=== PATIENT | female | born 2000 | race Caucasian/White ===

== ENCOUNTER 2018-06-22 15:52 | Emergency (ER) | payer MEDICAID, SELFPAY ==
[2018-06-22 15:59] VITALS: BP 109/66; PULSE 72; RESP 16; TEMP 37; O2SAT 98
--- NOTE | 2018-06-22 18:24 | W.ED.GENAD ---
Discharge Plan Disposition Patient Disposition: HOME Condition: Stable Discharge Details Chief Complaint: PsychEval Clinical Impression: Depression, Anxiety, Stress reaction Primary Care Provider: Ruby Roberts ED Provider: Cole Fitzgerald Home Meds and New Rx's Prescriptions: No Action L norgest/e.estradiol-e.estrad [Quartette] 0.15 mg-20 mcg/ 0.15 mg-25 mcg tablets,dose pack,3 month 1 tab PO DAILY Qty: 91 RF: 0 Nexplanon 68 MG implant 68 mg SQ ONCE Qty: 1 RF: 0 L norgest/e.estradiol-e.estrad [Seasonique] 0.15 mg-30 mcg (84)/10 mcg (7) tablets,dose pack,3 month 1 tab PO DAILY Qty: 91 RF: 0 venlafaxine [Effexor XR] 37.5 MG capsule,extended release 24hr 37.5 mg PO DAILY RF: 0 omeprazole 20 MG capsule,delayed release(DR/EC) 20 mg PO DAILY RF: 0 ibuprofen 600 MG tablet 600 mg PO QID PRN (Reason: Pain) Qty: 20 RF: 0 Discharge Instructions Instructions: Depression (ED), Anxiety (ED) Additional Instructions: Please follow through with [facility] human services for further counseling and to speak somebody about your anxiety and depression. Contact your primary care provider next week for arrangement of follow-up appointment to restart your psychiatric medications. Feel free to return to the emergency department for any new or worsening symptoms. Stand Alone Forms: Work Release Referrals: Ruby Roberts [Primary Care Provider] - Discharge Data Discharge Date/Time-TO BE ENTERED AT DEPARTURE: 06/22/18 18:38 Medical Decision Making Patient presenting to the emergency department for chief complaint of depression, anxiety, and anger outburst. She states that she has been under a lot of stress with significant other, custody chicas in court, and work. She states that tonight she felt like she was going to snap and did not feel that she could go to work due to potentially risking her job due to anger outburst. She states that she stopped her medication 3 months ago due to losing insurance and not being able to see her primary care provider for the same reason. Patient denies any homicidal or suicidal ideations, denies any medical complaints, states that she just does not want to get to the point that she has been in the past of feeling suicidal. Patient has very forward thinking with desiring to take care of her daughter and spend time with her daughter along with keeping her employment status and good standing. Patient was put in touch with acute on-call psychiatric provider for resource management and they were able to arrange outpatient counseling. Patient is willing to restart her antidepressants and psychiatric medications so patient placed up on care management list to help arrange follow-up for patient to see primary care provider to restart these medications. Patient is otherwise stable at this time. Brief physical exam is unremarkable and at this time I doubt any endocrine, electrolyte, or medical source for her complaint. After discussion of diagnosis and plan of care patient has no further needs, questions, or concerns and states clear understanding to return to the emergency department for any worsening symptoms. HPI General Mode of arrival: ambulatory. Date/Time Provider Initiated Documentation: 06/22/18 17:38. Limitations to Documentation: no limitations. Information obtained by: patient, RN notes reviewed and old records reviewed. History of Present Illness 18 year old F presents to the emergency department with the chief complaint of Anger and irritability, Quality is described as other (Denies pain or medical complaint), Patient notes no other symptoms.. Patient did receive the following treatments prior to arrival, none Related Data Home Medications Medication Instructions Recorded Confirmed omeprazole 20 mg PO DAILY 09/12/17 06/22/18 venlafaxine [Effexor XR] 37.5 mg PO DAILY 09/12/17 06/22/18 Nexplanon 68 mg SQ ONCE #1 implant 09/18/17 06/22/18 ibuprofen 600 mg PO QID PRN #20 tab 12/04/17 06/22/18 L norgest/E estradiol-E estrad 1 tab PO DAILY #91 dose pk 05/06/18 06/22/18 0.15 mg-20 mcg/0.15 mg-25 mcg tabs,3mos L norgest/E estradiol-E estrad 1 tab PO DAILY #91 dose pk 05/21/18 06/22/18 0.15 mg-30 mcg (84)/10 mcg(7) tabs,3mos Previous Rx's Medication Instructions Recorded ibuprofen 600 mg PO QID PRN #20 tab 12/04/17 L norgest/E estradiol-E estrad 1 tab PO DAILY #91 dose pk 05/06/18 0.15 mg-20 mcg/0.15 mg-25 mcg tabs,3mos L norgest/E estradiol-E estrad 1 tab PO DAILY #91 dose pk 05/21/18 0.15 mg-30 mcg (84)/10 mcg(7) tabs,3mos Allergies Allergy/AdvReac Type Severity Reaction Status Date / Time latex Allergy Intermediate Swelling/Ra Unverified 06/22/18 16:02 sh codeine phosphate AdvReac Intermediate vomitting Unverified 06/22/18 16:02 [From Tylenol-Codeine #3] General Stated Complaint: PsychEval DEEDEE: 3 Review of Systems Constitutional Denies body ache(s), Denies chills, Denies fever(s), Denies headache(s), Denies weight gain and Denies weight loss Eyes Denies change in vision ENT Denies headache(s), Denies sore throat and Denies throat swelling Cardiovascular Denies chest pain and Denies dyspnea Respiratory Denies dyspnea Gastrointestinal Denies abdominal pain, Denies diarrhea, Denies nausea and Denies vomiting Genitourinary Denies dysuria Neurologic Denies headache(s) Psychiatric Reports as per HPI, Reports irritability and Reports mood swings Endocrine Denies cold intolerance and Denies heat intolerance Hematologic/Lymphatic Denies easy bleeding and Denies easy bruising Allergic/Immunologic Denies throat swelling [facility] Medical History Depression Ganglion cyst Hemorrhoids in puerperium Insomnia PTSD (post-traumatic stress disorder) Skin abscess Surgical History GANGLION CYST REMOVAL (05/06/15) Family History Brother Congenital heart anomaly Mother Cerebral palsy Social History Smoking/Tobacco Use Status: Never Exam Const General: cooperative Orientation: alert, awake and oriented x3 Limitations: mental status not altered [facility] Head: normal to inspection, normocephalic and atraumatic Ears: hearing grossly normal bilaterally Mouth: moist mucous membranes Eyes General: appearance normal, both eyes and all related structures Pupils: PERRL EOM: EOM intact bilaterally Neck Thyroid: thyroid normal Resp Effort & Inspection: normal respiratory effort, able to speak in complete sentences and no respiratory distress Auscultation: clear to auscultation bilaterally Cardio Rate: regular rate and not tachycardic Rhythm: regular rhythm Heart Sounds: S1 normal, S2 normal, no click, no gallops, no murmurs and no rubs Neuro General: alert, awake, oriented x3, gait normal, moves all extremities and no focal motor deficits Cognition: normal cognition Speech: speech normal Psych Speech and Movement: speech and movement normal and speech clear Affect: normal affect Attitude: cooperative Thought Process: normal Thought Content: normal, no homicidality, no obsessions and suicidality Course Vital Signs Temperature 37 C 06/22/18 15:59 Pulse 72 06/22/18 15:59 Respiratory Rate 16 06/22/18 15:59 Blood Pressure 109/66 06/22/18 15:59 Pulse Oximetry 98 06/22/18 15:59 Temperature 37 C 06/22/18 15:59 Temperature Source Skin 06/22/18 15:59 Pulse 72 06/22/18 15:59 Respiratory Rate 16 06/22/18 15:59 Respiratory Effort 06/22/18 15:59 Blood Pressure 109/66 06/22/18 15:59 Blood Pressure Position Sitting 06/22/18 15:59 Pulse Oximetry 98 06/22/18 15:59 Oxygen Delivery Method Room Air 06/22/18 15:59 Oxygen Flow Rate 0 06/22/18 15:59 Pain Level 0 06/22/18 15:59
--- NOTE | 2018-06-22 18:31 | ED.GENADUL_ITS ---
Discharge Plan Disposition Patient Disposition: HOME Condition: Stable Discharge Details Chief Complaint: PsychEval Clinical Impression: Depression, Anxiety, Stress reaction Primary Care Provider: Ruby Roberts ED Provider: Cole Fitzgerald Home Meds and New Rx's Prescriptions: No Action L norgest/e.estradiol-e.estrad [Quartette] 0.15 mg-20 mcg/ 0.15 mg-25 mcg tablets,dose pack,3 month 1 tab PO DAILY Qty: 91 RF: 0 Nexplanon 68 MG implant 68 mg SQ ONCE Qty: 1 RF: 0 L norgest/e.estradiol-e.estrad [Seasonique] 0.15 mg-30 mcg (84)/10 mcg (7) tablets,dose pack,3 month 1 tab PO DAILY Qty: 91 RF: 0 venlafaxine [Effexor XR] 37.5 MG capsule,extended release 24hr 37.5 mg PO DAILY RF: 0 omeprazole 20 MG capsule,delayed release(DR/EC) 20 mg PO DAILY RF: 0 ibuprofen 600 MG tablet 600 mg PO QID PRN (Reason: Pain) Qty: 20 RF: 0 Discharge Instructions Instructions: Depression (ED), Anxiety (ED) Additional Instructions: Please follow through with [facility] human services for further counseling and to speak somebody about your anxiety and depression. Contact your primary care provider next week for arrangement of follow-up appointment to restart your psychiatric medications. Feel free to return to the emergency department for any new or worsening symptoms. Stand Alone Forms: Work Release Referrals: Ruby Roberts [Primary Care Provider] - Discharge Data Discharge Date/Time-TO BE ENTERED AT DEPARTURE: 06/22/18 18:38 Medical Decision Making Patient presenting to the emergency department for chief complaint of depression, anxiety, and anger outburst. She states that she has been under a lot of stress with significant other, custody chicas in court, and work. She states that tonight she felt like she was going to snap and did not feel that she could go to work due to potentially risking her job due to anger outburst. She states that she stopped her medication 3 months ago due to losing insurance and not being able to see her primary care provider for the same reason. Patient denies any homicidal or suicidal ideations, denies any medical comp laints, states that she just does not want to get to the point that she has been in the past of feeling suicidal. Patient has very forward thinking with desiring to take care of her daughter and spend time with her daughter along with keeping her employment status and good standing. Patient was put in touch with acute on-call psychiatric provider for resource management and they were able to arrange outpatient counseling. Patient is willing to restart her antidepressants and psychiatric medications so patient placed up on care management list to help arrange follow-up for patient to see primary care provider to restart these medications. Patient is otherwise stable at this time. Brief physical exam is unremarkable and at this time I doubt any endocrine, electrolyte, or medical source for her complaint. After discussion of diagnosis and plan of care patient has no further needs, questions, or concerns and states clear understanding to return to the emergency department for any worsening symptoms. HPI General Mode of arrival: ambulatory . Date/Time Provider Initiated Documentation: 06/22/18 17:38 . Limitations to Documentation: no limitations . Information obtained by: patient, RN notes reviewed and old records reviewed . History of Present Illness 18 year old F presents to the emergency department with the chief complaint of Anger and irritability, Quality is described as other (Denies pain or medical complaint), Patient notes no other symptoms.. Patient did receive the following treatments prior to arrival, none Related Data Home Medications Medication Instructions Recorded Confirmed omeprazole 20 mg PO DAILY 09/12/17 06/22/18 venlafaxine [Effexor XR] 37.5 mg PO DAILY 09/12/17 06/22/18 Nexplanon 68 mg SQ ONCE #1 implant 09/18/17 06/22/18 ibuprofen 600 mg PO QID PRN #20 tab 12/04/17 06/22/18 L norgest/E estradiol-E estrad 1 tab PO DAILY #91 dose pk 05/06/18 06/22/18 0.15 mg-20 mcg/0.15 mg-25 mcg tabs,3mos L norgest/E estradiol-E estrad 1 tab PO DAILY #91 dose pk 05/21/18 06/22/18 0.15 mg-30 mcg (84)/10 mcg(7) tabs,3mos Previous Rx's Medication Instructions Recorded ibuprofen 600 mg PO QID PRN #20 tab 12/04/17 L norgest/E estradiol-E estrad 1 tab PO DAILY #91 dose pk 05/06/18 0.15 mg-20 mcg/0.15 mg-25 mcg tabs,3mos L norgest/E estradiol-E estrad 1 tab PO DAILY #91 dose pk 05/21/18 0.15 mg-30 mcg (84)/10 mcg(7) tabs,3mos Allergies Allergy/AdvReac Type Severity Reaction Status Date / Time latex Allergy Intermediate Swelling/Ra Unverified 06/22/18 16:02 sh codeine phosphate AdvReac Intermediate vomitting Unverified 06/22/18 16:02 [From Tylenol-Codeine #3] General Stated Complaint: PsychEval DEEDEE: 3 Review of Systems Constitutional Denies body ache(s), Denies chills, Denies fever(s), Denies headache(s), Denies weight gain and Denies weight loss Eyes Denies change in vision ENT Denies headache(s), Denies sore throat and Denies throat swelling Cardiovascular Denies chest pain and Denies dyspnea Respiratory Denies dyspnea Gastrointestinal Denies abdominal pain, Denies diarrhea, Denies nausea and Denies vomiting Genitourinary Denies dysuria Neurologic Denies headache(s) Psychiatric Reports as per HPI, Reports irritability and Reports mood swings Endocrine Denies cold intolerance and Denies heat intolerance Hematologic/Lymphatic Denies easy bleeding and Denies easy bruising Allergic/Immunologic Denies throat swelling [facility] Medical History Depression Ganglion cyst Hemorrhoids in puerperium Insomnia PTSD (post-traumatic stress disorder) Skin abscess Surgical History GANGLION CYST REMOVAL (05/06/15) Family History Brother Congenital heart anomaly Mother Cerebral palsy Social History Smoking/Tobacco Use Status: Never Exam Const General: cooperative Orientation: alert, awake and oriented x3 Limitations: mental status not altered [facility] Head: normal to inspection, normocephalic and atraumatic Ears: hearing grossly normal bilaterally Mouth: moist mucous membranes Eyes General: appearance normal, both eyes and all related structures Pupils: PERRL EOM: EOM intact bilaterally Neck Thyroid: thyroid normal Resp Effort & Inspection: normal respiratory effort, able to speak in complete sentences and no respiratory distress Auscultation: clear to auscultation bilaterally Cardio Rate: regular rate and not tachycardic Rhythm: regular rhythm Heart Sounds: S1 normal, S2 normal, no click, no gallops, no murmurs and no rubs Neuro General: alert, awake, oriented x3, gait normal, moves all extremities and no focal motor deficits Cognition: normal cognition Speech: speech normal Psych Speech and Movement: speech and movement normal and speech clear Affect: normal affect Attitude: cooperative Thought Process: normal Thought Content: normal, no homicidality, no obsessions and suicidality Course Vital Signs Temperature 37 C 06/22/18 15:59 Pulse 72 06/22/18 15:59 Respiratory Rate 16 06/22/18 15:59 Blood Pressure 109/66 06/22/18 15:59 Pulse Oximetry 98 06/22/18 15:59 Temperature 37 C 06/22/18 15:59 Temperature Source Skin 06/22/18 15:59 Pulse 72 06/22/18 15:59 Respiratory Rate 16 06/22/18 15:59 Respiratory Effort 06/22/18 15:59 Blood Pressure 109/66 06/22/18 15:59 Blood Pressure Position Sitting 06/22/18 15:59 Pulse Oximetry 98 06/22/18 15:59 Oxygen Delivery Method Room Air 06/22/18 15:59 Oxygen Flow Rate 0 06/22/18 15:59 Pain Level 0 06/22/18 15:59
--- NOTE | 2018-06-25 09:26 | PDOC.ERCMPRO ---
Care Management Progress Note 06/25-Johnathan SILVESTRE had requested a f/u appt with PCP (Ruby Bond, [facility]) within a week for depression and patients desire to restart medications. [facility] faxed back that patient is scheduled for 06/25 at [phone].
--- NOTE | 2018-06-25 09:27 | CMPROGNOTE_ITS ---
Care Management Progress Note 06/25-Johnathan SILVESTRE had requested a f/u appt with PCP (Ruby Bond, [facility]) within a week for depression and patients desire to restart medications. [facility] faxed back that patient is scheduled for 06/25 at [phone].
== END 2018-06-22 18:38 | disposition home or self-care (01) ==
PROVIDERS: Emergency Provider Nurse Practitioner Family; PCP Nurse Practitioner
DX: F41.8 Other specified anxiety disorders (principal); F43.9 Reaction to severe stress, unspecified
CPT/HCPCS: 99283

== ENCOUNTER 2018-07-27 10:15 | Emergency (ER) | payer MEDICAID, SELFPAY ==
[2018-07-27 10:41] VITALS: BP 103/65; PULSE 74; RESP 14; TEMP 36.7; O2SAT 98
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
== END 2018-07-27 10:59 | disposition home or self-care (01) ==
LOC: ER 11:01
PROVIDERS: Emergency Provider Emergency Medicine; PCP Nurse Practitioner
DX: R51 Headache (principal)
CPT/HCPCS: 99282

== ENCOUNTER 2018-07-29 11:28 | Emergency (ER) | payer MEDICAID, SELFPAY ==
[2018-07-29 11:44] VITALS: BP 113/70; PULSE 63; RESP 20; TEMP 36.8; O2SAT 98
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
[2018-07-29] MEDS: Ibuprofen 600 MG TAB PO (13:23)
[2018-07-29] MEDS: Acetaminophen 325 MG TAB 650 MG PO (13:23)
[2018-07-29 13:35] VITALS: BP 113/70; PULSE 63; RESP 20; TEMP 36.8; O2SAT 98
== END 2018-07-29 13:30 | disposition home or self-care (01) ==
PROVIDERS: Emergency Provider Student in an Organized Health Care Education/Training Program; PCP Nurse Practitioner
DX: M54.5 Low back pain (principal); S39.012A Strain of muscle, fascia and tendon of lower back, initial encounter; V43.52XA Car driver injured in collision with other type car in traffic accident, initial encounter
CPT/HCPCS: 99282

== ENCOUNTER 2018-09-16 16:49 | Outpatient (REF) | payer MEDICAID, SELFPAY | END 2018-09-16 17:09 | LOC: NCHCN 16:49 | PROVIDERS: PCP Nurse Practitioner; Visit Provider Nurse Practitioner Family | DX: N89.8 Other specified noninflammatory disorders of vagina (principal) | CPT/HCPCS: 87480; 87510; 87660 ==

== ENCOUNTER 2018-11-25 13:35 | Emergency (ER) | payer MEDICAID, SELFPAY ==
[2018-11-25 13:38] VITALS: BP 159/104; PULSE 116; RESP 18; TEMP 37.3; O2SAT 98
[2018-11-25 13:56] LABS: Bilirubin Negative (Negative); Blood Negative (Negative); Clarity Clear; Glucose Negative (Negative); Ketones Negative (Negative); Leukocyte Esterase Negative (Negative); Nitrite Negative (Negative); Specific Gravity 1.025 (1.005-1.025); Urobilinogen 0.2 EU/dL (Up TO 0.2); pH 5.5 (5-8)
[2018-11-25 14:07] LABS: *AMPHETAMINES SCREEN URINE Negative (Negative); *BARBITURATES SCREEN URINE Negative (Negative); *BENZODIAZEPINES SCREEN URINE Negative (Negative); Cannabinoids THC POSITIVE (Negative); Cocaine Screen,Urine Negative (Negative); METHADONE URINE SCREEN Negative (Negative); OPIATES URINE SCREEN Negative (Negative)
[2018-11-25 14:08] LABS: Tricyclic Antidepressants Negative (Negative)
[2018-11-25 14:21] LABS: Abs Immature Grans 0.01 k/cumm (0.0-0.09); Absolute Basophil Count 0.03 k/cumm (0.0-0.2); Absolute Eosinophil Count 0.09 k/cumm (0.0-0.7); Absolute Lymphocyte Count 2.53 k/cumm (1.2-3.4); Absolute Monocyte Count 0.81 k/cumm (0.11-0.7); Absolute Neutrophil Count 5.01 k/cumm (1.2-6.7); Basophils % 0.4; Eosinophils % 1.1; HCT 39.4 % (36.0-46.0); HGB 13.5 g/dL (12.0-15.5); Immature Grans % 0.1; Lymphocytes % 29.8; Mean Corp. HGB Concentration 34.3 g/dL (32.0-36.0); Mean Corpuscular Hemoglobin 28.5 pg (27.0-33.0); Mean Corpuscular Volume 83.1 fL (80-95); Monocytes % 9.6; Platelet Count 357 x1000/uL (130-400); RBC 4.74 m/cumm (4.00-5.20); White Blood Cell Count 8.48 k/cumm (4.4-10.8)
[2018-11-25 14:48] LABS: ALT 24 U/L (12-78); AST 19 U/L (15-37); Alkaline Phosphatase 73 U/L (46-116); Anion Gap 10.3 mmol/L (3-11); BUN 13 mg/dL (7-18); Bilirubin, Total 0.2 mg/dL (0.2-1.0); CO2 23.7 mmol/L (21.0-32.0); CREATININE 1.13 mg/dL (0.55-1.02); Calcium 9.1 mg/dL (8.5-10.1); Chloride 105 mmol/L (98-107); Glucose 119 mg/dL (70-100); Potassium 3.5 mmol/L (3.5-5.1); Sodium 139 mmol/L (136-145); TSH (W/Ref FT4) 2.62 uIU/mL (0.358-3.74); Total Protein 7.6 g/dL (6.4-8.2)
[2018-11-25 14:58] LABS: ETHANOL BLOOD < 3.0 mg/dL (<3)
--- NOTE | 2018-11-25 15:14 | ED.GENADUL_ITS ---
Discharge Plan Disposition Patient Disposition: HOME Condition: Good Discharge Details Chief Complaint: PsychEval Clinical Impression: Depression Primary Care Provider: Dalila Rodriguez ED Provider: Scar Armendariz Home Meds and New Rx's Prescriptions: No Action albuterol (refill) 90 mcg/actuation aerosol IH RF: 0 medroxyprogesterone 150 mg/mL syringe 150 mg IM [id number] RF: 0 omeprazole 20 MG capsule,delayed release(DR/EC) 20 mg PO DAILY RF: 0 ibuprofen 600 MG tablet 600 mg PO QID PRN (Reason: Pain) Qty: 20 RF: 0 buspirone 10 mg Tablet PO DAILY RF: 0 citalopram 10 mg Tablet PO DAILY RF: 0 guanfacine 1 mg Tablet PO DAILY RF: 0 Discharge Instructions Instructions: Depression (ED) Additional Instructions: If you have any worsening of your symptoms, please contact 911 return immediately. Please utilize your resources at home for your close mental health follow-up. If you notice any worsening of your symptoms, or any new symptoms such as vomiting, diarrhea, fever, chills, shortness of breath, chest pain, numbness, weakness, or fainting , please return immediately to the emergency department for reevaluation. Please follow up with your primary care provider as soon as possible for reassessment and reevaluation. As always, it was a pleasure participating in your medical care today. Medical Decision Making This is a pleasant 18-year-old female with a past medical history of depression who presents for evaluation of depression and suicidality. She states that she has had multiple social issues as of late which has significantly increased her chronic depression symptoms and thoughts of self-harm. Physical exam demonstrates no significant abnormalities. We will consult mental health, get an observer for the patient, switch her into close both of her mental health. 4:57 PM Patient's laboratory work-up is returned benign. She is cleared medically. At this time mental health has come and evaluated the patient and after a very long and thorough discussion with the patient through shared decision-making processes, the patient states that she feels ready and stable to go home, and will be given multiple resources in the outpatient basis for close follow-up. The patient feels well and is requesting discharge. Mental health agrees to this plan. Patient will be discharged home with her multiple resources for mental health on an outpatient basis. I have extensively reviewed the treatment plan and discharge instructions with the patient and their family. I have addressed all patient concerns at this time. The patient and family was made aware of what symptoms to monitor for that would warrant a return to the emergency department. Discussed the plan with the patient and family, they demonstrate verbal understanding and agreement with our assessment and plan at this time. HPI General Date/Time Provider Initiated Documentation: 11/25/18 13:59 . HPI Narrative: This is a 18-year-old female with a past medical history of depression, bipolar, PTSD, who presents today for evaluation of suicidal ideations and depression. The patient states that she has had multiple social problems as of late with her family, and these have notably been making her chronic symptoms of depression worse. She does not take any of her home depression medications that she feels that these do not help. She states that in the past she was hospitalized for cutting of her wrists, however she states that currently she does not have a plan but imagine she would go through with cutting if she needed to harm herself or end her life. She denies any IV illicit drug use, pertinent family history of suicidality, auditory or visual hallucinations, or homicidal ideations. Related Data Home Medications Medication Instructions Recorded Confirmed omeprazole 20 mg PO DAILY 09/12/17 09/29/18 ibuprofen 600 mg PO QID PRN #20 tab 12/04/17 09/29/18 buspirone mg PO DAILY 07/27/18 09/29/18 citalopram mg PO DAILY 07/27/18 09/29/18 guanfacine mg PO DAILY 07/27/18 09/29/18 albuterol (refill) 90 mcg IH 09/29/18 09/29/18 mcg/actuation aerosol inhaler medroxyprogesterone 150 mg/mL 150 mg IM [id number] 09/29/18 09/29/18 intramuscular syringe Previous Rx's Medication Instructions Recorded ibuprofen 600 mg PO QID PRN #20 tab 12/04/17 Allergies Allergy/AdvReac Type Severity Reaction Status Date / Time latex Allergy Intermediate Swelling/Ra Verified 09/29/18 12:56 sh codeine phosphate AdvReac Intermediate vomitting Verified 09/29/18 12:56 [From Tylenol-Codeine #3] General Stated Complaint: PsychEval DEEDEE: 2 Review of Systems Review of Systems All systems reviewed & are unremarkable except as noted in HPI and below PFSH Medical History PTSD (post-traumatic stress disorder) (Acute) Anxiety (Acute 09/02/17) Family history of congenital heart disorder in brother (Acute 04/30/16) Depression (Resolved) Ganglion cyst (Resolved) Hemorrhoids in puerperium (Resolved) Insomnia (Resolved) Skin abscess (Resolved) Surgical History GANGLION CYST REMOVAL (05/06/15) Social History Smoking/Tobacco Use Status: Never Drug use: Occasionally Do you feel safe in your relationship?: Yes History History 2 Para 1 Hx # Term Pregnancies Multiple births Hx # Pregnancies Ectopic pregnancies AB induced Hx Number of Living Children AB spontaneous Exam Narrative Exam Narrative: 1.Const: Well-nourished, Well-developed, appearing stated age 2.Eyes: PERRL, no conjunctival injection, and symmetrical lids. 3.ENT: Atraumatic external nose and ears. Moist MM. Neck: Symmetric, trachea midline, No thyromegaly. 4.CVS: +S1/S2, No murmurs or gallops. Peripheral pulses 2+ and equal in all extremities. Brisk capillary refill in all extremities. 5.RESP: Unlabored respiratory effort. Clear to auscultation bilaterally. No w heezes rales or rhonchi 6.GI: Soft, Nontender/Nondistended, No hepatosplenomegaly. No guarding or rebound. 7.MSK: Normocephalic/Atraumatic, Extremities w/o deformity or ttp No cyanosis or clubbing, Normal movement of all extremities 8.Skin: Warm, Dry. No rashes or lesions. 9.Neuro: fur scraper II-XII grossly intact. Sensation grossly intact, no focal neurologic deficits. 10.Psych: (AAO) x3. Appropriate mood and affect Course Vital Signs Temperature 37.3 C 11/25/18 13:38 Pulse 116 H 11/25/18 13:38 Respiratory Rate 18 11/25/18 13:38 Blood Pressure 159/104 H 11/25/18 13:38 Pulse Oximetry 98 11/25/18 13:38 Temperature 37.3 C 11/25/18 13:38 Temperature Source Temporal Artery Scan 11/25/18 13:38 Pulse 116 H 11/25/18 13:38 Respiratory Rate 18 11/25/18 13:38 Blood Pressure 159/104 H 11/25/18 13:38 Pulse Oximetry 98 11/25/18 13:38 Oxygen Delivery Method Room Air 11/25/18 13:38 Oxygen Flow Rate 0 11/25/18 13:38 Pain Level 0 11/25/18 13:38 Lab/Test Results Lab/Test Results: Laboratory Tests Range/Units 11/25/18 11/25/18 11/25/18 13:45 13:45 14:10 WBC (4.4-10.8) k/cumm RBC (4.00-5.20) m/cumm Hgb (12.0-15.5) g/dL Hct (36.0-46.0) % MCV (80-95) fL MCH (27.0-33.0) pg MCHC (32.0-36.0) g/dL RDW (11.7-14.6) % Plt Count (130-400) x1000/uL MPV (8.0-11.0) fL Immature Gran % Neutrophils % Lymphocytes % Monocytes % Eosinophils % Basophils % Absolute Neutrophils (1.2-6.7) k/cumm Absolute Lymphocytes (1.2-3.4) k/cumm Absolute Monocytes (0.11-0.7) k/cumm Absolute Eosinophils (0.0-0.7) k/cumm Absolute Basophils (0.0-0.2) k/cumm Sodium (136-145) mmol/L 139 Potassium (3.5-5.1) mmol/L 3.5 Chloride (98-107) mmol/L 105 Carbon Dioxide (21.0-32.0) mmol/L 23.7 Anion Gap (3-11) mmol/L 10.3 BUN (7-18) mg/dL 13 Creatinine (0.55-1.02) mg/dL 1.13 H Estimated GFR/1.73 m2 (mL/min/1.73m2) >= 60.00 Glucose (70-100) mg/dL 119 H Calcium (8.5-10.1) mg/dL 9.1 Total Bilirubin (0.2-1.0) mg/dL 0.2 AST (15-37) U/L 19 ALT (12-78) U/L 24 Alkaline Phosphatase (46-116) U/L 73 Total Protein (6.4-8.2) g/dL 7.6 Albumin (3.4-5.0) g/dL 3.0 L TSH (0.358-3.74) uIU/mL 2.62 Urine Color (Yellow) Yellow Urine Clarity Clear Urine pH (5-8) 5.5 Ur Specific [place] (1.005-1.025) 1.025 Urine Protein (Negative) mg/dL Negative Urine Ketones (Negative) mg/dL Negative Urine Blood (Negative) Negative Urine Nitrite (Negative) Negative Urine Bilirubin (Negative) Negative Urine Urobilinogen (Up TO 0.2) EU/dL 0.2 Ur Leukocyte Esterase (Negative) Negative Urine Glucose (Negative) mg/dL Negative Urine Opiates Screen (Negative) Negative Urine Methadone Screen (Negative) Negative Ur Barbiturates Screen (Negative) Negative Ur Tricyclics Screen (Negative) Negative Ur Amphetamines Screen (Negative) Negative U Benzodiazepines Scrn (Negative) Negative Urine Cocaine Screen (Negative) Negative Ur THC Screen (Negative) Positive Ethyl Alcohol (<3) mg/dL < 3.0 Range/Units 11/25/18 14:10 WBC (4.4-10.8) k/cumm 8.48 RBC (4.00-5.20) m/cumm 4.74 Hgb (12.0-15.5) g/dL 13.5 Hct (36.0-46.0) % 39.4 MCV (80-95) fL 83.1 MCH (27.0-33.0) pg 28.5 MCHC (32.0-36.0) g/dL 34.3 RDW (11.7-14.6) % 13.0 Plt Count (130-400) x1000/uL 357 MPV (8.0-11.0) fL 10.0 Immature Gran % 0.1 Neutrophils % 59.0 Lymphocytes % 29.8 Monocytes % 9.6 Eosinophils % 1.1 Basophils % 0.4 Absolute Neutrophils (1.2-6.7) k/cumm 5.01 Absolute Lymphocytes (1.2-3.4) k/cumm 2.53 Absolute Monocytes (0.11-0.7) k/cumm 0.81 H Absolute Eosinophils (0.0-0.7) k/cumm 0.09 Absolute Basophils (0.0-0.2) k/cumm 0.03 Sodium (136-145) mmol/L Potassium (3.5-5.1) mmol/L Chloride (98-107) mmol/L Carbon Dioxide (21.0-32.0) mmol/L Anion Gap (3-11) mmol/L BUN (7-18) mg/dL Creatinine (0.55-1.02) mg/dL Estimated GFR/1.73 m2 (mL/min/1.73m2) Glucose (70-100) mg/dL Calcium (8.5-10.1) mg/dL Total Bilirubin (0.2-1.0) mg/dL AST (15-37) U/L ALT (12-78) U/L Alkaline Phosphatase (46-116) U/L Total Protein (6.4-8.2) g/dL Albumin (3.4-5.0) g/dL TSH (0.358-3.74) uIU/mL Urine Color (Yellow) Urine Clarity Urine pH (5-8) Ur Specific [place] (1.005-1.025) Urine Protein (Negative) mg/dL Urine Ketones (Negative) mg/dL Urine Blood (Negative) Urine Nitrite (Negative) Urine Bilirubin (Negative) Urine Urobilinogen (Up TO 0.2) EU/dL Ur Leukocyte Esterase (Negative) Urine Glucose (Negative) mg/dL Urine Opiates Screen (Negative) Urine Methadone Screen (Negative) Ur Barbiturates Screen (Negative) Ur Tricyclics Screen (Negative) Ur Amphetamines Screen (Negative) U Benzodiazepines Scrn (Negative) Urine Cocaine Screen (Negative) Ur THC Screen (Negative) Ethyl Alcohol (<3) mg/dL POC Urine Test Start: 11/25/18 13:55 Freq: Status: Complete Protocol: Document 11/25/18 13:55 TB (Rec: 11/25/18 13:55 TB [id number]) Test(Urine)-POC POC- Test(urine) Negative POC- Test(urine) Negative
[2018-11-25 17:16] VITALS: BP 118/70; PULSE 72; RESP 18; TEMP 36.8; O2SAT 99
[2018-11-25 17:26] VITALS: BP 118/70; PULSE 72; RESP 18; TEMP 36.8; O2SAT 99
== END 2018-11-25 17:26 | disposition home or self-care (01) ==
PROVIDERS: Emergency Provider Student in an Organized Health Care Education/Training Program; PCP Nurse Practitioner Family
DX: F32.9 Major depressive disorder, single episode, unspecified (principal); R45.851 Suicidal ideations
CPT/HCPCS: 36415; 80053; 80307; 81025; 99285; 80320; 81003; 84443; 85025; 99284

== ENCOUNTER 2018-11-26 16:04 | Outpatient (REF) | payer MEDICAID, SELFPAY ==
--- NOTE | 2018-11-26 15:15 | PAPFT_PTH ---
PATIENT: Fabiola Valadez LOC: [facility]#:[id number] AGE/SX: 18/F ROOM: RE11/26/[address]: Maine Osborne : 2000 BED: DIS: 11/26/2018 SPEC #: [id number] RECD: 11/27/18 12:37 STATUS: JON REQ #: [id number] FRAN: 11/26/18 15:[address]: Maine Osborne DEPT: [facility] Cytology RECD BY: Luzmaria Mejia ENTERED: 11/27/18 12:37 SP TYPE: PAPFT OTHR DR: Dalila Rodriguez Tissues: 1 - CX/ENDOCX FOR PAP SMEARS Procedures: PAP THIN PREP/[facility] Screening Comments: [id number] (CHLAMYDIA/GC)
[2018-11-28 14:54] LABS: GC Result Negative; Specimen Description SEE COMMENTS
[2018-11-28 15:29] LABS: Syphilis Serology (RPR) Negative (Negative)
[2018-11-28 15:30] LABS: HIV-1/2 Ag & Ab Screen Negative (NEGAT)
[2018-11-28 15:31] LABS: Chlamydia Result Positive
== END 2018-11-26 16:24 ==
LOC: NCHCN 16:04
PROVIDERS: PCP Nurse Practitioner Family; Visit Provider Nurse Practitioner Family
DX: F39 Unspecified mood [affective] disorder (principal); Z11.3 Encounter for screening for infections with a predominantly sexual mode of transmission; Z12.4 Encounter for screening for malignant neoplasm of cervix; Z11.4 Encounter for screening for human immunodeficiency virus [HIV]; Z01.419 Encounter for gynecological examination (general) (routine) without abnormal findings
CPT/HCPCS: 87389; 87491; 87591; 88142; 86592

== ENCOUNTER 2019-01-08 16:03 | Outpatient (REF) | payer MEDICAID, SELFPAY ==
[2019-01-09 15:03] LABS: Chlamydia Result Negative; GC Result Negative; Specimen Description CERVIX
== END 2019-01-08 16:23 ==
LOC: LBN 16:03
PROVIDERS: PCP Nurse Practitioner Family; Visit Provider Obstetrics & Gynecology
DX: Z11.3 Encounter for screening for infections with a predominantly sexual mode of transmission (principal); Z30.430 Encounter for insertion of intrauterine contraceptive device
CPT/HCPCS: 87491; 87591

== ENCOUNTER 2019-01-12 07:57 | Emergency (ER) | payer MEDICAID, SELFPAY ==
[2019-01-12 08:02] VITALS: BP 104/60; PULSE 69; RESP 16; TEMP 36.6; O2SAT 99
--- NOTE | 2019-01-12 08:35 | W.ED.GENAD ---
Discharge Plan Disposition Patient Disposition: HOME Discharge Details Chief Complaint: Abd Prob Clinical Impression: Abdominal pain, Diarrhea, Pharyngitis, acute Primary Care Provider: Dalila Rodriguez ED Provider: Brendan Sahni Home Meds and New Rx's Prescriptions: No Action tranexamic acid 650 mg tablet 1,300 mg PO TID Qty: 30 RF: 2 albuterol (refill) 90 mcg/actuation aerosol IH RF: 0 medroxyprogesterone 150 mg/mL syringe 150 mg IM [id number] RF: 0 ibuprofen 600 MG tablet 600 mg PO QID PRN (Reason: Pain) Qty: 20 RF: 0 Discharge Instructions Instructions: Pharyngitis (ED), Acute Diarrhea (ED), Abdominal Pain (ED) Additional Instructions: Return to the emergency department should you develop severe lower abdominal pain, vaginal bleeding, vaginal discharge, fever or vomiting. If your symptoms persist please follow-up with [facility]. Referrals: Dalila Rodriguez [Primary Care Provider] - 5 days Medical Decision Making This is a nontoxic-appearing 18-year-old female who presents to the emergency department with vague generalized abdominal pain x4 days. Vital signs stable. Exam reveals a soft abdomen with mild tenderness in the right and left lower quadrants. No rebound or guarding. She also complains of a sore throat. Her posterior pharynx is erythematous without exudate or swelling. [id number] strep negative here. Her pelvic exam shows a closed cervix with IUD string visualized. No cervical motion tenderness, discharge, adnexal tenderness or suprapubic tenderness on exam. Low suspicion for PID at this time. Labs are unremarkable. GC chlamydia sent. She does complain of diarrhea which seemed to be in conjunction with her onset of abdominal pain. Also sick exposure with her 2-year-old daughter having similar symptoms. I suspect GI origin at this time however I did give the patient strict return precautions regarding her recent IUD placement and need for emergent evaluation should symptoms of fever, vaginal discharge, vaginal bleeding or vomiting develop. She is ready for discharge at this time HPI General Date/Time Provider Initiated Documentation: 01/12/19 08:03. HPI Narrative: Patient is a 18-year-old female 4 days status post IUD placement here at [facility] who presents with constitutional symptoms of fatigue, sore throat, lower abdominal discomfort and diarrhea. She states that her symptoms started shortly thereafter her IUD was placed. She denies any vaginal bleeding or discharge. No fevers or low back pain. She does state that her daughter was sick with URI symptoms shortly before the onset of her symptoms. She has not taken any medications for her symptoms. Related Data Home Medications Medication Instructions Recorded Confirmed ibuprofen 600 mg PO QID PRN #20 tab 12/04/17 01/08/19 albuterol (refill) 90 mcg IH 09/29/18 01/08/19 mcg/actuation aerosol inhaler medroxyprogesterone 150 mg/mL 150 mg IM [id number] 09/29/18 01/08/19 intramuscular syringe tranexamic acid 650 mg tablet 1,300 mg PO TID #30 tab 12/24/18 01/08/19 Previous Rx's Medication Instructions Recorded ibuprofen 600 mg PO QID PRN #20 tab 12/04/17 tranexamic acid 650 mg tablet 1,300 mg PO TID #30 tab 12/24/18 Allergies Allergy/AdvReac Type Severity Reaction Status Date / Time latex Allergy Intermediate Swelling/Ra Verified 01/08/19 13:50 sh codeine phosphate AdvReac Intermediate vomitting Verified 01/08/19 13:50 [From Tylenol-Codeine #3] General Stated Complaint: Abd Prob DEEDEE: 4 Review of Systems Constitutional Denies body ache(s), Denies chills, Denies fatigue, Denies fever(s), Denies headache(s), Denies night sweats, Denies poor appetite and Denies weakness ENT Denies headache(s), Denies nasal trauma, Denies neck mass, Denies neck pain, Denies sinus pain, Denies sinus pressure, Reports sore throat and Denies throat swelling Cardiovascular Denies edema and Denies dyspnea Respiratory Denies cough, Denies dyspnea and Denies wheezing Gastrointestinal Reports abdominal pain, Reports cramping, Denies dyspepsia, Denies heartburn, Reports diarrhea, Reports loose stools, Reports nausea and Denies vomiting Genitourinary Denies abnormal vaginal bleeding, Denies amenorrhea, Denies metrorrhagia, Denies hematuria, Denies dysmenorrhea, Denies dysuria, Denies pelvic pain, Denies flank pain, Denies urinary incontinence, Denies urinary hesitancy, Denies urinary urgency, Denies vaginal discharge and Denies vaginal odor Musculoskeletal Denies joint swelling and Denies neck pain Integumentary/Breasts Denies rash Neurologic Denies headache(s) and Denies weakness Endocrine Denies fatigue Allergic/Immunologic Denies throat swelling and Denies wheezing [facility] Medical History Anxiety (Acute 09/02/17) Depression (Resolved) Family history of congenital heart disorder in brother (Acute 04/30/16) Ganglion cyst (Resolved) Hemorrhoids in puerperium (Resolved) Insomnia (Resolved) PTSD (post-traumatic stress disorder) (Acute) Skin abscess (Resolved) Surgical History GANGLION CYST REMOVAL (05/06/15) Family History Brother Congenital heart anomaly Mother Cerebral palsy Social History Smoking/Tobacco Use Status: Never Alcohol Intake: never Drug use: Occasionally Substance use type: marijuana Do you feel safe at home: Yes Do you feel safe in your relationship?: Yes Female Reproductive History Menstrual control method: progestin IUCD (Lot# [id number] Exp 05/14) History History 2 Para 1 Hx # Term Pregnancies Multiple births Hx # Pregnancies Ectopic pregnancies AB induced Hx Number of Living Children AB spontaneous Exam Const General: cooperative, healthy appearing, comfortable and no acute distress Nutritional Appearance: average body habitus Orientation: alert, awake and oriented x3 HENMT Face and sinus: normal facial exam Mouth: oral mucosae normal Teeth and gingiva: dentition normal Throat: posterior oropharynx abnormal erythema; no edema and no exudates Neck Neck: normal visual inspection Lymphatic: lymphadenopathy Chest Chest: normal inspection of the chest Resp Effort & Inspection: normal respiratory effort and able to speak in complete sentences Auscultation: clear to auscultation bilaterally Cardio Jugular venous pressure: no JVD Palpation: normal PMI Rate: regular rate Rhythm: regular rhythm Pulses: normal peripheral pulses GI Inspection: normal to inspection Palpation: soft and tender in the LLQ and in the RLQ; with no rebound tenderness Speculum Exam - Vagina: normal appearance of the vagina and normal vaginal discharge Speculum Exam - Cervix: normal appearance of the cervix, closed cervix, nontender and other (IUD string noted from cervical os) Bimanual Exam- Vagina & Uterus: normal bimanual exam, normal cervical palpation, No cervical tenderness and uterus non-tender Bimanual Exam- Adnexa, other: normal adnexae and adnexae mobile Back/Spine/Pelvis Back: no CVA tenderness Skin General skin exam: no rashes or lesions noted Extrem General: normal to inspection Course Vital Signs Temperature 36.6 C 01/12/19 08:02 Pulse 69 01/12/19 08:02 Respiratory Rate 16 01/12/19 08:02 Blood Pressure 104/60 01/12/19 08:02 Pulse Oximetry 99 01/12/19 08:02 Temperature 36.6 C 01/12/19 08:02 Temperature Source Skin 01/12/19 08:02 Pulse 69 01/12/19 08:02 Respiratory Rate 16 01/12/19 08:02 Respiratory Effort Non-Labored 01/12/19 08:05 Blood Pressure 104/60 01/12/19 08:02 Blood Pressure Position Supine 01/12/19 08:02 Pulse Oximetry 99 01/12/19 08:02 Oxygen Delivery Method Room Air 01/12/19 08:02 Oxygen Flow Rate 0 01/12/19 08:02 Lab/Test Results Lab/Test Results: Laboratory Results - last 24 hr 01/12/19 01/12/19 01/12/19 08:38 08:38 08:38 WBC 7.13 RBC 5.26 H Hgb 14.8 Hct 43.4 MCV 82.5 MCH 28.1 MCHC 34.1 RDW 13.0 Plt Count 311 MPV 10.0 Immature Gran % 0.3 Neutrophils % 50.8 Lymphocytes % 34.6 Monocytes % 11.1 Eosinophils % 2.8 Basophils % 0.4 Absolute Neutrophils 3.62 Absolute Lymphocytes 2.47 Absolute Monocytes 0.79 H Absolute Eosinophils 0.20 Absolute Basophils 0.03 Sodium 141 Potassium 4.2 Chloride 106 Carbon Dioxide 26.3 Anion Gap 8.7 BUN 12 Creatinine 1.01 Estimated GFR/1.73 m2 >= 60.00 Glucose 84 Calcium 9.1 Magnesium 2.2 Total Bilirubin 0.1 L AST 19 ALT 25 Alkaline Phosphatase 72 Total Protein 8.1 Albumin 3.9 Urine Color Yellow Urine Clarity Clear Urine pH 5.5 Ur Specific Happy 1.025 Urine Protein Negative Urine Ketones Negative Urine Blood Negative Urine Nitrite Negative Urine Bilirubin Negative Urine Urobilinogen 0.2 Ur Leukocyte Esterase Trace H Urine RBC Negative Urine WBC 3-5 Ur Epithelial Cells Few Urine Crystals Few calcium oxalate Urine Bacteria Few Urine Casts Negative Urine Mucus Trace Urine Other Few renal Ur Culture Indicated? Yes Urine Glucose Negative
[2019-01-12 08:46] LABS: Abs Immature Grans 0.02 k/cumm (0.0-0.09); Absolute Basophil Count 0.03 k/cumm (0.0-0.2); Absolute Lymphocyte Count 2.47 k/cumm (1.2-3.4); Absolute Monocyte Count 0.79 k/cumm (0.11-0.7); Absolute Neutrophil Count 3.62 k/cumm (1.2-6.7); Basophils % 0.4; Eosinophils % 2.8; HCT 43.4 % (36.0-46.0); HGB 14.8 g/dL (12.0-15.5); Immature Grans % 0.3; Lymphocytes % 34.6; Mean Corp. HGB Concentration 34.1 g/dL (32.0-36.0); Mean Corpuscular Hemoglobin 28.1 pg (27.0-33.0); Mean Corpuscular Volume 82.5 fL (80-95); Monocytes % 11.1; Neutrophils % 50.8; Platelet Count 311 x1000/uL (130-400); RBC 5.26 m/cumm (4.00-5.20); White Blood Cell Count 7.13 k/cumm (4.4-10.8)
[2019-01-12 08:48] LABS: Bilirubin Negative (Negative); Blood Negative (Negative); Clarity Clear (Clear); Glucose Negative (Negative); Ketones Negative (Negative); Leukocyte Esterase Trace (Negative); Nitrite Negative (Negative); Specific Gravity 1.025 (1.005-1.025); Urobilinogen 0.2 EU/dL (Up TO 0.2); pH 5.5 (5-8)
[2019-01-12 09:01] LABS: Bacteria Few HPF (Negative); Crystals Few Calcium Oxalate HPF (Negative); Epithelial Cells Few HPF (Negative); Mucus Trace (Negative); Other Cells Few Renal (Negative); RBC Negative (0-2)
[2019-01-12 09:02] LABS: C & S Indicated? Yes; Casts Negative LPF (Negative)
--- NOTE | 2019-01-12 09:30 | NUR.NOTE ---
Nursing Note: PA at bedside for pelvic exam with RN. Pt tolerated well.
[2019-01-12 09:31] LABS: ALT 25 U/L (12-78); AST 19 U/L (15-37); Albumin 3.9 g/dL (3.4-5.0); Alkaline Phosphatase 72 U/L (46-116); Anion Gap 8.7 mmol/L (3-11); BUN 12 mg/dL (7-18); Bilirubin, Total 0.1 mg/dL (0.2-1.0); CO2 26.3 mmol/L (21.0-32.0); CREATININE 1.01 mg/dL (0.55-1.02); Calcium 9.1 mg/dL (8.5-10.1); Chloride 106 mmol/L (98-107); Glucose 84 mg/dL (70-100); Magnesium 2.2 mg/dL (1.8-2.4); Potassium 4.2 mmol/L (3.5-5.1); Sodium 141 mmol/L (136-145); Total Protein 8.1 g/dL (6.4-8.2)
[2019-01-12 10:47] VITALS: BP 109/64; PULSE 58; RESP 16; O2SAT 100
--- NOTE | 2019-01-12 17:14 | NUR.NOTE ---
Nursing Note: Referral faxed to [facility] for follow up. Merry Epstein.
[2019-01-13 14:58] LABS: Chlamydia Result Negative; GC Result Negative; Specimen Description CERVICAL
== END 2019-01-12 10:50 | disposition home or self-care (01) ==
PROVIDERS: Emergency Provider Physician Assistant; PCP Nurse Practitioner Family
DX: R10.9 Unspecified abdominal pain (principal); R19.7 Diarrhea, unspecified; J02.9 Acute pharyngitis, unspecified; Z97.5 Presence of (intrauterine) contraceptive device
CPT/HCPCS: 36415; 80053; 81025; 87491; 87591; 87880; 99283; 81003; 81015; 83735; 85025; 87081; 87086; 87480; 87510; 87660

== ENCOUNTER 2019-03-09 12:32 | Emergency (ER) | payer MEDICAID, SELFPAY ==
[2019-03-09 12:34] VITALS: BP 105/61; PULSE 88; RESP 14; TEMP 36.6; O2SAT 99
--- NOTE | 2019-03-09 13:14 | W.ED.GENAD ---
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 Clinical Impression: Vaginal bleeding Primary Care Provider: Dalila Rodriguez ED Provider: Kenji Levy Home Meds and New Rx's Prescriptions: Continued L norgest/e.estradiol-e.estrad [Seasonique] 0.15 mg-30 mcg (84)/10 mcg (7) tablets,dose pack,3 month 1 tab PO DAILY Qty: 91 RF: 3 albuterol sulfate [ProAir HFA] 90 mcg/actuation HFA aerosol inhaler 1 inh IH ONCE RF: 0 lamotrigine 25 mg tablet 75 mg PO HS RF: 0 albuterol (refill) 90 mcg/actuation aerosol IH RF: 0 ibuprofen 600 MG tablet 600 mg PO QID PRN (Reason: Pain) Qty: 20 RF: 0 No Action doxycycline hyclate 100 mg tablet 100 mg PO BID 10 Days Qty: 20 RF: 0 Discharge Instructions Additional Instructions: Please stay hydrated. Drink plenty of clear fluids. Use motrin or Tylenol for aches if needed. Dose according to label. Use your control previously prescribed. Be sure to start taking this as prescribed today. Followup with your supervisor firearms on the or for reevaluation. Call tomorrow to schedule follow-up. Return to the ER immediately for any worsening or new concerning symptoms -including increased bleeding or fever or worsening abdominal pain. Referrals: Nikole Houston MD [ [facility] STAFF PHYSICIAN] - Discharge Data Discharge Date/Time-TO BE ENTERED AT DEPARTURE: 03/09/19 16:58 Medical Decision Making <NATALYA Kay - Last Filed: 03/10/19 11:00> I did speak with patient's STEREOTYPE MOLDER Dr. quach for the office to remove the IUD [address] They feel CT evaluation is most appropriate image at this time given her complaints of pain and tenderness in the abdomen. They do feel that it is not uncommon to have vaginal bleeding after having IUD removal as patient has not began the control which she was prescribed. It is possible that this is breakthrough bleeding. Encourage patient to take her control which may help and control the bleeding. <Kenji Levy MD - Last Filed: 03/16/19 16:29> Care signed out by NATALYA Chu with plan to follow-up on CT and reassess the patient for disposition. CT the abdomen pelvis interpreted by radiology: Reproductive: Unremarkable as visualized. IMPRESSION: No acute findings. Labs were reviewed and nondiagnostic. Patient was reassessed and has had notable improvement here. No active bleeding at this time. Requesting discharge. Plan will be for her to start oral contraceptive and follow-up with gynecology as recommended by Dr. Houston. Disposition decision was made weighing the risks and benefits of hospitalization versus outpatient treatment, the risk for further decompensation, and the patient's wishes. The patient was stable and requested discharge. Prior to discharge, my usual and customary return precautions were reviewed with the patient - this included follow-up instructions and reason to return to the emergency department if condition worsens, does not improve as expected, or other new concerns arise. HPI <NATALYA Kay - Last Filed: 03/10/19 11:00> General Date/Time Provider Initiated Documentation: 03/09/19 12:57. HPI Narrative: Patient presents for complaints of vaginal bleeding. Patient reports 3 days ago she had her IUD removed. Reports that it was painful to have her IUD removed. Patient reports yesterday while working she was dizzy and fatigued with mild malaise. Patient reports today while working again dizziness present without feeling of syncope. Patient reports while she was working she had a episode of vaginal bleeding with a very foul odor which persists at this time. Patient reports lower abdominal pain 7 out of 10 in the lower abdomen as well as mild discomfort in the lower back. Patient denies any fevers or chills. No nausea or vomiting. No bowel changes. Related Data Home Medications Medication Instructions Recorded Confirmed ibuprofen 600 mg PO QID PRN #20 tab 12/04/17 03/11/19 albuterol (refill) 90 mcg IH 09/29/18 03/11/19 mcg/actuation aerosol inhaler albuterol sulfate 90 mcg/actuation 1 inh IH ONCE 02/10/19 03/11/19 aerosol inhaler lamotrigine 25 mg tablet 75 mg PO HS 02/10/19 03/11/19 L norgest/e.estradiol-e.estrad 1 tab PO DAILY #91 dose pk 03/06/19 03/11/19 0.15 mg-30 mcg (84)/10 mcg(7) tabs,3mos doxycycline hyclate 100 mg tablet 100 mg PO BID 10 Days #20 tab 03/11/19 03/11/19 Previous Rx's Medication Instructions Recorded ibuprofen 600 mg PO QID PRN #20 tab 12/04/17 L norgest/e.estradiol-e.estrad 1 tab PO DAILY #91 dose pk 03/06/19 0.15 mg-30 mcg (84)/10 mcg(7) tabs,3mos doxycycline hyclate 100 mg tablet 100 mg PO BID 10 Days #20 tab 03/11/19 Allergies Allergy/AdvReac Type Severity Reaction Status Date / Time latex Allergy Intermediate Swelling/Ra Verified 03/11/19 13:17 sh codeine phosphate AdvReac Intermediate vomitting Verified 03/11/19 13:17 [From Tylenol-Codeine #3] General Stated Complaint: STEREOTYPE MOLDER DEEDEE: 3 Review of Systems <NATALYA Kay - Last Filed: 03/10/19 11:00> Review of Systems Narrative: CONSTITUTIONAL: The patient denies fevers, chills. EYES: Denies vision changes, blurry vision, or eye pain. ENT: Denies hearing changes, tinnitus, vertigo, sore throat. CARDIAC: Denies chest pain, SOB. RESPIRATORY: Denies cough, sputum. Denies difficulty breathing. GASTROINTESTINAL: Denies abdominal pain, changes in bowel, vomiting or nausea. GENITOURINARY: Denies dysuria, or frequency of urination. MUSCULOSKELETAL: Denies Joint pain, gait changes. NEUROLOGIC: Denies headaches, Denies focal weakness. Denies numbness. INTEGUMENT: Denies rashes. PSYCHIATRIC: Denies behavior changes. Denies anxiety or depression. ENDOCRINOLOGY: Denies fatigue. PSYCHIATRY: Denies depression, agitation or anxiety PFS <NATALYA Kay - Last Filed: 03/10/19 11:00> Social History Smoking/Tobacco Use Status: Never Alcohol Intake: never Drug use: Occasionally Substance use type: marijuana Do you feel safe at home: Yes Do you feel safe in your relationship?: Yes Female Reproductive History Menstrual control method: progestin IUCD (Lot# [id number] Exp 05/14) History History 2 Para 1 Hx # Term Pregnancies Multiple births Hx # Pregnancies Ectopic pregnancies AB induced Hx Number of Living Children AB spontaneous Exam <NATALYA Kay - Last Filed: 03/10/19 11:00> Narrative Exam Narrative: CONST: Healthy appearing patient, in no acute distress. Well hydrated. Alert and alert. HENMT: Head nomocephalic, normal to inspection. Atraumatic. Hearing grossly normal. EYES: General normal appearance. Alignment normal. Eyelids normal. Conjunctiva normal. NECK: Normal visual inspection. FROM. Trachea midline. No Midline tenderness. CHEST: Normal insepection of the chest. RESP: Normal respiratory effort. Speaking full sentences. No cough. No audible wheezing. No retractions. CARDIO: No JVD. Abdomen;. Patient does have lower abdominal tenderness with palpation. No rigidity to abdomen, abdomen is soft. Bowel sounds are present. No obvious rebound or guarding. No bruising to the abdominal wall. MUSCULOSKELETAL: Normal Gait. FROM of all extremities. SKIN: Normal. Dry. No rashes. NEURO: Alert and awake. Speech clear. PSYCH: Normal affect. Cooperative. External Female Exam: external appearance normal Speculum Exam - Vagina: normal appearance of the vagina, no lacerations and vaginal bleeding Speculum Exam - Cervix: normal appearance of the cervix, closed cervix and nontender Bimanual Exam- Vagina & Uterus: normal bimanual exam, uterine size normal and No cervical tenderness Bimanual Exam- Adnexa, other: normal adnexae OB/External & Speculum: vaginal bleeding Back/Spine/Pelvis Back: No no CVA tenderness Course <NATALYA Kay - Last Filed: 03/10/19 11:00> Vital Signs Vital signs: Vital Signs Temperature 36.6 C 03/09/19 12:34 Pulse 88 03/09/19 12:34 Respiratory Rate 14 03/09/19 12:34 Blood Pressure 105/61 03/09/19 12:34 Pulse Oximetry 99 03/09/19 12:34 Temperature 36.6 C 03/09/19 12:34 Temperature Source Skin 03/09/19 12:34 Pulse 88 03/09/19 12:34 Respiratory Rate 14 03/09/19 12:34 Respiratory Effort 03/09/19 12:43 Blood Pressure 105/61 03/09/19 12:34 Blood Pressure Position Sitting 03/09/19 12:34 Pulse Oximetry 99 03/09/19 12:34 Oxygen Delivery Method Room Air 03/09/19 12:34 Oxygen Flow Rate 0 03/09/19 12:34 Pain Level 7 03/09/19 12:51 Comment 03/09/19 12:34 Sign Out <NATALYA Kay - Last Filed: 03/10/19 11:00> Sign Out Data: Sign Out Comment: Signed out pending CT evaluation to rule out complication of IUD removal. Last updated by Maine Robertson PA at 03/09/19 16:22
[2019-03-09] MEDS: Normal Saline 1,000 ML 1000 ML IV (13:25)
[2019-03-09 13:38] LABS: Abs Immature Grans 0.01 k/cumm (0.0-0.09); Absolute Basophil Count 0.03 k/cumm (0.0-0.2); Absolute Eosinophil Count 0.15 k/cumm (0.0-0.7); Absolute Lymphocyte Count 2.72 k/cumm (1.2-3.4); Absolute Monocyte Count 0.97 k/cumm (0.11-0.7); Absolute Neutrophil Count 4.89 k/cumm (1.2-6.7); Basophils % 0.3; Eosinophils % 1.7; HCT 39.6 % (36.0-46.0); HGB 13.5 g/dL (12.0-15.5); Immature Grans % 0.1; Mean Corp. HGB Concentration 34.1 g/dL (32.0-36.0); Mean Corpuscular Hemoglobin 28.4 pg (27.0-33.0); Mean Corpuscular Volume 83.4 fL (80-95); Mean Platelet Volume 10.2 fL (8.0-11.0); Monocytes % 11.1; Neutrophils % 55.8; Platelet Count 312 x1000/uL (130-400); RBC 4.75 m/cumm (4.00-5.20); RBC Distribution Width 13.1 % (11.7-14.6); White Blood Cell Count 8.77 k/cumm (4.4-10.8)
--- NOTE | 2019-03-09 13:38 | DI.CT_ITS ---
EXAM: CT ABDOMEN PELVIS W CLINICAL HISTORY: IUD REMOVED, ABD PAIN,? PERFORATION TECHNIQUE: CT was performed with intravenous infusion of 100 cc of Omnipaque 350. COMPARISON: No exams were available for comparison FINDINGS: Images obtained through the lung bases are unremarkable. There is significant motion artifact which degrades visualization of upper abdominal organs. No gross abnormality of liver, spleen, pancreas, a drenals or kidneys. Abdominal aorta is of normal diameter and no major vascular abnormality is seen. No abdominal wall hernia seen. No abdominal or pelvic adenopathy. No evidence of appendicitis or diverticulitis. Uterus and ovaries unremarkable by CT criteria. No free fluid in the pelvis. No fr ee intraperitoneal air. IMPRESSION: No evidence of free air in the peritoneal cavity. No evidence of acute process.
[2019-03-09 13:49] LABS: ALT 23 U/L (14-59); AST 18 U/L (15-37); Albumin 3.6 g/dL (3.4-5.0); Alkaline Phosphatase 70 U/L (46-116); Anion Gap 10.2 mmol/L (3-11); BUN 12 mg/dL (7-18); Bilirubin, Total 0.2 mg/dL (0.2-1.0); CO2 22.8 mmol/L (21.0-32.0); CREATININE 1.03 mg/dL (0.55-1.02); Calcium 8.3 mg/dL (8.5-10.1); Chloride 107 mmol/L (98-107); Glucose 93 mg/dL (70-100); Potassium 3.7 mmol/L (3.5-5.1); Sodium 140 mmol/L (136-145); Total Protein 7.3 g/dL (6.4-8.2)
[2019-03-09 13:52] LABS: PTT Activated 23.4 sec (21.0-31.4); Prothrombin Time 10.4 sec (9.3-11.0)
[2019-03-09] MEDS: Omnipaque 350 MG/ML 100 ML BTL IV (15:40)
[2019-03-09] MEDS: Normal Saline 1,000 ML 500 ML IV (16:17)
[2019-03-09 16:18] VITALS: BP 102/64; PULSE 85; RESP 15; TEMP 37; O2SAT 98
--- NOTE | 2019-03-09 16:29 | DI.VRAD_ITS ---
EXAM: CT Abdomen and Pelvis With Contrast EXAM DATE/TIME: 03/09/2019 3:57 PM CLINICAL HISTORY: 18 years old, female; Other: Iud removed 3 days ago, abd pain R/O perf TECHNIQUE: Imaging protocol: Computed tomography of the abdomen and pelvis with intravenous contrast. Radiation optimization: All CT scans at this facility use at least one of these dose optimization techniques: automated exposure control; mA and/or kV adjustment per patient size (includes targeted exams where dose is matched to clinical indication); or iterative reconstruction. Contrast material: OMNIPAQUE; Contrast volume: 100 ml; Contrast route: RT AC; COMPARISON: US OB 12/11/2016 5:03 PM FINDINGS: Liver: Unremarkable. No mass. Gallbladder and bile ducts: Unremarkable. No calcified stones. No ductal dilation. Pancreas: Unremarkable. No ductal dilation. Spleen: Unremarkable. No splenomegaly. Adrenals: Normal. No mass. Kidneys and ureters: Unremarkable. No stones. No hydronephrosis. Stomach and bowel: Unremarkable. No obstruction. No mucosal thickening. Appendix: No evidence of appendicitis. Intraperitoneal space: Unremarkable. No free air. No significant fluid collection. Vasculature: Unremarkable. No abdominal aortic aneurysm. Lymph nodes: Unremarkable. No enlarged lymph nodes. Bladder: Unremarkable as visualized. Reproductive: Unremarkable as visualized. Bones/joints: No acute fracture. Soft tissues: Unremarkable. IMPRESSION: No acute findings. Dictated and Authenticated by: Khanh Pierre MD. Ordering:MARIBEL Grove MD
[2019-03-09 16:58] VITALS: BP 106/68; PULSE 76; RESP 16; TEMP 37; O2SAT 98
== END 2019-03-09 16:58 | disposition home or self-care (01) ==
PROVIDERS: Physician Assistant; Emergency Provider Student in an Organized Health Care Education/Training Program; PCP Nurse Practitioner Family
DX: N93.9 Abnormal uterine and vaginal bleeding, unspecified (principal); R10.33 Periumbilical pain; R42 Dizziness and giddiness
CPT/HCPCS: 36415; 80053; 81025; 86850; 86900; 86901; 96360; 96361; 99285; 74177; 85025; 85610; 85730; J2405; J3490

== ENCOUNTER 2019-03-11 14:46 | Outpatient (REF) | payer MEDICAID, SELFPAY ==
[2019-03-12 14:13] LABS: Chlamydia Result Negative; GC Result Negative; Specimen Description CERVIX
== END 2019-03-11 15:06 ==
LOC: LBN 14:46
PROVIDERS: PCP Nurse Practitioner Family; Visit Provider Nurse Practitioner Women's Health
DX: Z11.3 Encounter for screening for infections with a predominantly sexual mode of transmission (principal)
CPT/HCPCS: 87491; 87591

== ENCOUNTER 2019-03-23 11:56 | Emergency (ER) | payer MEDICAID, SELFPAY ==
[2019-03-23 12:02] VITALS: BP 99/61; PULSE 64; RESP 16; TEMP 36.5; O2SAT 100
--- NOTE | 2019-03-23 12:08 | ED.GENADUL_ITS ---
Discharge Plan Disposition Patient Disposition: HOME Condition: Good Discharge Details Chief Complaint: Orthopedic Clinical Impression: Crush injury, wrist, Contusion Primary Care Provider: Dalila Rodriguez ED Provider: Shelly Elam Home Meds and New Rx's Prescriptions: Continued L norgest/e.estradiol-e.estrad [Seasonique] 0.15 mg-30 mcg (84)/10 mcg (7) tablets,dose pack,3 month 1 tab PO DAILY Qty: 91 RF: 3 albuterol sulfate [ProAir HFA] 90 mcg/actuation HFA aerosol inhaler 1 inh IH ONCE RF: 0 lamotrigine 25 mg tablet 75 mg PO HS RF: 0 albuterol (refill) 90 mcg/actuation aerosol IH RF: 0 ibuprofen 600 MG tablet 600 mg PO QID PRN (Reason: Pain) Qty: 20 RF: 0 Discharge Instructions Instructions: Contusion in Adults (ED) Additional Instructions: Encourage rest, ice, elevation. Tylenol and ibuprofen as needed for discomfort. Please follow-up with primary care in the next 1 to 2 weeks for reevaluation. Please continue with the wrist immobilizer until then. I am concerned that you have pain over your scaphoid bone. This will need to be discussed further with your primary care provider. If you develop new or worsening symptoms please seek care urgently once again. Stand Alone Forms: Work Release Referrals: Dalila Rodriguez [Primary Care Provider] - Discharge Data Discharge Date/Time-TO BE ENTERED AT DEPARTURE: 03/23/19 13:25 Medical Decision Making Patient is a 18-year-old xnyja-zljb-kejggakt female presenting today with chief complaint of right hand/wrist pain. She reports that prior to arrival she was at work. She was trying to close a folding bed when she tripped and landed on the frame of the bed causing it to close on her hand. She denies other injury the time of the incident. Denies any altered sensation. No break in the skin. Has been preferring to hold this in a still position, this was splinted while she was still at work to aid in discomfort. On exam, the patient has a 3 cm in circumference area of ecchymosis along the dorsal proximal right hand extending over the distal wrist. She has good extension against resistance of all of her digits. Normal vascular exam. No break in the skin. Patient is tender over the anatomic snuffbox. This does seem away from the actual area of her injury. Plan for imaging. Images were reviewed by radiologist: BONES: No acute fracture is present. No bony destructive lesion is seen. JOINTS: The carpal bones are normally aligned. SOFT TISSUE: Normal. IMPRESSION:Unremarkable radiographs of the right wrist. Discussed these findings with the patient. She will be placed in a thumb spica for the anatomic snuffbox tenderness. I did discuss the concerning pathology associated with tenderness over this area. I encouraged rest, ice, elevation. Tylenol and ibuprofen as needed for discomfort. We discussed activity she should avoid. Work note was given. Advise follow-up with primary care in the next 1 to 2 weeks for reevaluation. Advise she seek care urgently once again with any new or worsening symptoms. All other questions and concerns were addressed and she is in agreement this plan. [facility] General Mode of arrival: ambulatory . Date/Time Provider Initiated Documentation: 03/23/19 12:07 . Limitations to Documentation: no limitations . Information obtained by: patient, family and RN notes reviewed . History of Present Illness 18 year old F presents to the emergency department with the chief complaint of right hand/wrist pain, described as severe, with intensity rated at 9. Quality is described as aching, and is localized to the right and upper extremity. Patient reports no radiation. Patient started experiencing this hour(s) (1.5) and it has been constant. Immobilization improves symptom(s), Movement worsens symptoms . Patient notes no other symptoms.. Patient did receive the following treatments prior to arrival, splint Related Data Home Medications Medication Instructions Recorded Confirmed ibuprofen 600 mg PO QID PRN #20 tab 12/04/17 03/23/19 albuterol (refill) 90 mcg IH 09/29/18 03/11/19 mcg/actuation aerosol inhaler albuterol sulfate 90 mcg/actuation 1 inh IH ONCE 02/10/19 03/23/19 aerosol inhaler lamotrigine 25 mg tablet 75 mg PO HS 02/10/19 03/23/19 L norgest/e.estradiol-e.estrad 1 tab PO DAILY #91 dose pk 03/06/19 03/23/19 0.15 mg-30 mcg (84)/10 mcg(7) tabs,3mos Previous Rx's Medication Instructions Recorded ibuprofen 600 mg PO QID PRN #20 tab 12/04/17 L norgest/e.estradiol-e.estrad 1 tab PO DAILY #91 dose pk 03/06/19 0.15 mg-30 mcg (84)/10 mcg(7) tabs,3mos Allergies Allergy/AdvReac Type Severity Reaction Status Date / Time latex Allergy Intermediate Swelling/Ra Verified 03/23/19 12:06 sh codeine phosphate AdvReac Intermediate vomitting Verified 03/23/19 12:06 [From Tylenol-Codeine #3] General Stated Complaint: Orthopedic DEEDEE: 4 Review of Systems Constitutional Constitutional: Reports as per HPI, Denies chills, Denies fever(s), Denies headache(s) and Denies weakness ENT Ears, Nose, Mouth, and Throat: Denies headache(s) Cardiovascular Cardiovascular: Reports as per HPI Respiratory Respiratory: Reports as per HPI and Denies cough Musculoskeletal Musculoskeletal: Reports as per HPI and Denies tingling Integumentary/Breasts Skin/Breast: Reports as per HPI, Denies rash and Denies wounds Neurologic Neurologic: Reports as per HPI, Denies headache(s), Denies tingling, Denies paresthesias and Denies weakness [facility] Social History Smoking/Tobacco Use Status: Never Alcohol Intake: never Drug use: Occasionally Substance use type: marijuana Do you feel safe at home: Yes Do you feel safe in your relationship?: Yes Female Reproductive History Menstrual control method: pills History History 2 Para 1 Hx # Term Pregnancies Multiple births Hx # Pregnancies Ectopic pregnancies AB induced Hx Number of Living Children AB spontaneous Exam Const General: cooperative, healthy appearing, comfortable, no acute distress, well developed and well groomed Nutritional Appearance: average body habitus and well nourished Orientation: alert and awake Resp Effort & Inspection: normal respiratory effort, able to speak in complete sentences and no respiratory distress Cardio Rate: regular rate Rhythm: regular rhythm Skin General skin exam: ecchymosis (Dorsal right hand/wrist as drawn below.) Neuro General: alert and awake Cognition: normal cognition Speech: speech normal Gait: normal gait Motor: muscle tone normal throughout Sensory Exam: no sensory deficits noted Extrem Right upper extremity: normal capillary refill, no joint enlargement, elbow/forearm Details: normal to inspection and normal ROM; no tenderness and no swelling, wrist Details: tenderness (Central dorsal. Patient has ecchymosis over the distal wrist, proximal hand along the dorsal aspect consistent with the area of crush) Location: of the anatomic snuffbox, swelling (Over the area of ecchymosis) Location: of the dorsal wrist, ecchymosis, normal vascular exam, radial pulse present and ulnar pulse present; ROM abnormal (Patient does not want to move the wrist.), no unusual warmth, no abrasions, no lacerations, no foreign body, no penetrating wound and no deformity and hand Details: normal capillary refill, neuromotor exam normal, neurosensory exam normal, tendon exam normal (Good extension against resistance of all digits.), tenderness, normal ROM of fingers, swelling and ecchymosis; abnormal to inspection (Ecchymosis is drawn below), no unusual warmth, no abrasions and no lacerations; abnormal to inspection and ROM limited Hand/finger images: 1. Focal area of ecchymosis Psych Appearance: grossly normal and well kempt Mental Status: mental status grossly normal Speech and Movement: speech and movement normal Course Vital Signs Vital signs: Vital Signs Temperature 36.5 C 03/23/19 12:02 Pulse 64 03/23/19 12:02 Respiratory Rate 16 03/23/19 12:02 Blood Pressure 99/61 L 03/23/19 12:02 Pulse Oximetry 100 03/23/19 12:02 Temperature 36.5 C 03/23/19 12:02 Temperature Source Skin 03/23/19 12:02 Pulse 64 03/23/19 12:02 Respiratory Rate 16 03/23/19 12:02 Respiratory Effort Non-Labored 03/23/19 12:02 Blood Pressure 99/61 L 03/23/19 12:02 Blood Pressure Position Sitting 03/23/19 12:02 Pulse Oximetry 100 03/23/19 12:02 Oxygen Delivery Method Room Air 03/23/19 12:02 Oxygen Flow Rate 0 03/23/19 12:02 Pain Level 9 03/23/19 12:02
--- NOTE | 2019-03-23 12:16 | DI.RAD_ITS ---
EXAM: XR WRIST RT COMPL NAVICULAR CLINICAL HISTORY: crush proximal hand/distal wrist. TECHNIQUE: 2D digital imaging was performed. COMPARISON: RIGHT WRIST COMPLETE from 11/03/2012 FINDINGS: BONES: No acute fracture is present. No bony destructive lesion is seen. JOINTS: The carpal bones are normally aligned. SOFT TISSUE: Normal. IMPRESSION: Unremarkable radiographs of the right wrist.
[2019-03-23] MEDS: Ibuprofen 600 MG TAB PO (12:29)
[2019-03-23] MEDS: Acetaminophen 500 MG TAB 1000 MG PO (12:29)
== END 2019-03-23 13:25 | disposition home or self-care (01) ==
PROVIDERS: Emergency Provider Physician Assistant; PCP Nurse Practitioner Family
DX: S67.31XA Crushing injury of right wrist, initial encounter (principal); S60.211A Contusion of right wrist, initial encounter; W23.0XXA Caught, crushed, jammed, or pinched between moving objects, initial encounter
CPT/HCPCS: 81025; 99283; 73110; 99282; L3807

== ENCOUNTER 2019-04-09 16:51 | Outpatient (REF) | payer MEDICAID, SELFPAY ==
[2019-04-09 22:34] LABS: Vitamin B12 223 pg/mL (193-986)
[2019-04-09 23:35] LABS: Vitamin D 25 Total 21.9 ng/ml (30-100)
== END 2019-04-09 17:11 ==
LOC: NCHCN 16:51
PROVIDERS: PCP Nurse Practitioner Family; Visit Provider Internal Medicine
DX: F41.8 Other specified anxiety disorders (principal)
CPT/HCPCS: 82306; 82607

== ENCOUNTER 2019-04-28 09:46 | Emergency (ER) | payer MEDICAID, SELFPAY ==
[2019-04-28 09:57] VITALS: BP 119/70; PULSE 86; RESP 12; TEMP 36.5; O2SAT 95
[2019-04-28 11:06] LABS: HCG Quant, Pregnancy < 1 mIU/mL (1-3)
--- NOTE | 2019-04-28 11:46 | NUR.NOTE ---
Referral faxed to [facility]. [phone] Note:
[2019-04-28 11:47] VITALS: BP 119/70; PULSE 86; RESP 12; TEMP 36.5; O2SAT 95
--- NOTE | 2019-04-28 14:05 | W.ED.GENAD ---
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 result Primary Care Provider: Dalila Rodriguez ED Provider: Rachel Levy Home Meds and New Rx's Prescriptions: Continued L norgest/e.estradiol-e.estrad [Seasonique] 0.15 mg-30 mcg (84)/10 mcg (7) tablets,dose pack,3 month 1 tab PO DAILY Qty: 91 RF: 3 albuterol sulfate [ProAir HFA] 90 mcg/actuation HFA aerosol inhaler 1 inh IH ONCE RF: 0 lamotrigine 25 mg tablet 75 mg PO HS RF: 0 albuterol (refill) 90 mcg/actuation aerosol IH RF: 0 ibuprofen 600 MG tablet 600 mg PO QID PRN (Reason: Pain) Qty: 20 RF: 0 Discharge Instructions Instructions: Pelvic Pain in Women (ED) Additional Instructions: Please return immediately to the emergency department if you develop any new or worsening symptoms or if you become otherwise concerned. It is extremely important that you call as soon as possible to make an appointment to be seen in follow-up for this visit by a human resources temp, and also by your primary care doctor. Referrals: Nikole Housotn MD [ [facility] STAFF PHYSICIAN] - Dalila Rodriguez [Primary Care Provider] - Discharge Data Discharge Date/Time-TO BE ENTERED AT DEPARTURE: 04/28/19 11:47 Medical Decision Making Fabiola Valadez is a 19-year-old woman with a history of anxiety, depression, asthma who presented to the emergency department requesting serum test as she has had menstrual-type cramping for 1.5 months and no menstrual period for 30 days, which is consistent with prior early . Patient was seen in the results waiting area, she is with her toddler. Patient refuses to be examined in room or evaluated for her pelvic pain at this time, she states repeatedly that pain has not changed since her IV as directed removal in early February, and is only here at this time for testing. She does request referral for gynecology for outpatient follow-up. Her limited physical exam is benign, she is very well and nontoxic appearing. History and limited physical exam not consistent with acute emergent life-threatening process. Plan for serum hCG. Serum hCG negative. Patient declines any further evaluation at this time, request discharged home. I had a lengthy discussion with the patient regarding return to emergency department precautions, importance of outpatient follow-up with her PCP and also with her human resources temp, and home care. Patient was placed on list for care management for outpatient follow-up with gynecology. Patient verbalized understanding of the plan was amenable. All questions were answered. Patient was discharged home with clear plan for outpatient follow-up. Medical Records Medical records reviewed: Yes I reviewed the patient's medical records. Lab Data Lab results reviewed: Yes I reviewed the patient's lab results. Labs: Laboratory Tests Range/Units 04/28/19 10:30 Beta HCG, Quant (1-3) mIU/mL < 1 L HPI General Mode of arrival: ambulatory. Date/Time Provider Initiated Documentation: 04/28/19 10:21. Limitations to Documentation: no limitations. Information obtained by: patient, RN notes reviewed and old records reviewed. HPI Narrative: Fabiola Valadez is a 19-year-old woman with history of asthma, anxiety, depression presenting to the emergency department with concern that she is . Patient reports that she had an IUD removed in early February. She reports that since that time she has had lower pelvic pain. Per patient and record review, she was seen in the emergency department subsequent IUD removal for pelvic pain, had CT abdomen pelvis that was negative. She was she was seen subsequent to the emergency department visit by gynecology for unchanged pelvic pain, and was started on doxycycline for possible intrauterine infection. Patient reports that she has continued to have the exact pain that she has had since the IUD removal, which is now over 1-1/2 months. She states that pain feels like menstrual cramping. Patient reports that she has not had any vaginal bleeding in over 30 days. Has had some clear vaginal discharge over the past few weeks. She is concerned at this point that she may be , as she had similar symptoms in the past when she was with her daughter, and she took multiple tests at home at that time that were negative. Patient has taken a test at home in the past 2 days that are also negative. She denies any other pain or any other symptoms. Has been eating and drinking as usual. States that she feels otherwise in her usual state of health. Related Data Home Medications Medication Instructions Recorded Confirmed ibuprofen 600 mg PO QID PRN #20 tab 12/04/17 04/28/19 albuterol (refill) 90 mcg IH 09/29/18 03/11/19 mcg/actuation aerosol inhaler albuterol sulfate 90 mcg/actuation 1 inh IH ONCE 02/10/19 04/28/19 aerosol inhaler lamotrigine 25 mg tablet 75 mg PO HS 02/10/19 04/28/19 L norgest/e.estradiol-e.estrad 1 tab PO DAILY #91 dose pk 03/06/19 04/28/19 0.15 mg-30 mcg (84)/10 mcg(7) tabs,3mos Previous Rx's Medication Instructions Recorded ibuprofen 600 mg PO QID PRN #20 tab 12/04/17 L norgest/e.estradiol-e.estrad 1 tab PO DAILY #91 dose pk 03/06/19 0.15 mg-30 mcg (84)/10 mcg(7) tabs,3mos Allergies Allergy/AdvReac Type Severity Reaction Status Date / Time latex Allergy Intermediate Swelling/Ra Verified 04/28/19 10:04 sh codeine phosphate AdvReac Intermediate vomitting Verified 04/28/19 10:04 [From Tylenol-Codeine #3] General 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 PFSH Social History Smoking/Tobacco Use Status: Never Alcohol Intake: never Drug use: Occasionally Substance use type: marijuana Do you feel safe at home: Yes Do you feel safe in your relationship?: Yes Female Reproductive History Menstrual control method: pills History History 2 Para 1 Hx # Term Pregnancies Multiple births Hx # Pregnancies Ectopic pregnancies AB induced Hx Number of Living Children AB spontaneous Exam Narrative Exam Narrative: Constitutional: well and pyd-kxduy-avweobloj, pleasant, conversing normally HENT: head atraumatic/normocephalic/normal inspection, mucous membranes moist Eyes: conjunctiva normal, sclera normal, pupils 3mm b/l Neck: no stridor, normal ROM, trachea midline Resp: normal work of breathing Skin: warm, dry, normal color, no rash Neuro: alert, not altered, grossly non-focal, normal tone Ext: Moving all extremities equally Psych: normal mood, normal affect, normal behavior Course Vital Signs Vital signs: Vital Signs Temperature 36.5 C 04/28/19 09:57 Pulse 86 11/05/19 09:57 Respiratory Rate 12 04/28/19 09:57 Blood Pressure 119/70 04/28/19 09:57 Pulse Oximetry 95 04/28/19 09:57 Temperature 36.5 C 04/28/19 11:47 Temperature Source Temporal Artery Scan 04/28/19 09:57 Pulse 86 04/28/19 11:47 Respiratory Rate 12 04/28/19 11:47 Respiratory Effort Non-Labored 04/28/19 10:00 Blood Pressure 119/70 04/28/19 11:47 Pulse Oximetry 95 04/28/19 11:47 Oxygen Delivery Method Room Air 04/28/19 09:57 Oxygen Flow Rate 0 04/28/19 09:57 Pain Level 4 04/28/19 10:00 Lab/Test Results Lab/Test Results: Laboratory Tests Range/Units 04/28/19 10:30 Beta HCG, Quant (1-3) mIU/mL < 1 L POC- Test(urine) Negative
== END 2019-04-28 11:47 | disposition home or self-care (01) ==
PROVIDERS: Emergency Provider Student in an Organized Health Care Education/Training Program; PCP Nurse Practitioner Family
DX: Z32.02 Encounter for pregnancy test, result negative (principal)
CPT/HCPCS: 36415; 81025; 99282; 84702

== ENCOUNTER 2019-05-11 01:17 | Outpatient (CLI) | payer MEDICAID, SELFPAY ==
--- NOTE | 2019-05-11 12:15 | DI.US_ITS ---
EXAM: US PELVIS AND TRANSVAGINAL CLINICAL HISTORY: pelvic pain, R10.2 TECHNIQUE: Ultrasound performed using standard protocol. COMPARISON: CT ABDOMEN AND PELVIS W from 03/09/2019 FINDINGS: The uterus measures 7.9 x 4.9 x 4.3 cm and is retroverted. Endometrial stripe measures 3 millimeters in thickness. No fibroids are seen. Ovaries are normal in size. A dominant follicle is noted on t he right ovary. There is no evidence of ovarian torsion. No free fluid or hydronephrosis is seen. IMPRESSION: Pelvic ultrasound is within normal limits.
== END 2019-05-11 01:37 ==
PROVIDERS: PCP Nurse Practitioner Family; Visit Provider Nurse Practitioner Women's Health
DX: R10.2 Pelvic and perineal pain (principal); N83.01 Follicular cyst of right ovary
CPT/HCPCS: 76830; 76856

== ENCOUNTER 2019-06-22 13:19 | Emergency (ER) | payer MEDICAID, SELFPAY ==
[2019-06-22 13:28] VITALS: BP 111/55; PULSE 66; RESP 14; TEMP 36.3; O2SAT 100
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
--- NOTE | 2019-06-22 14:47 | DI.CT_ITS ---
EXAM: CT CERVICAL SPINE WO CLINICAL HISTORY: trauma, neck pain TECHNIQUE: NONCONTRAST COMPARISON: HEAD NECK FACIAL WO from 01/21/2016 FINDINGS: There is patient motion artifact. The odontoid is intact. The lateral masses are well aligned. No acute fractures or subluxations are present. The bones are normally mineralized. The prevertebral soft tissues are unremarkable. Lung apices are clear. IMPRESSION: No acute fractures or subluxations.
[2019-06-22] MEDS: Ibuprofen 600 MG TAB (15:18)
== END 2019-06-22 15:42 | disposition home or self-care (01) ==
PROVIDERS: Emergency Provider Student in an Organized Health Care Education/Training Program; PCP Nurse Practitioner Family
DX: R51 Headache (principal); S16.1XXA Strain of muscle, fascia and tendon at neck level, initial encounter; S09.90XA Unspecified injury of head, initial encounter; V48.5XXA Car driver injured in noncollision transport accident in traffic accident, initial encounter
CPT/HCPCS: 99284; 72125

== ENCOUNTER 2019-09-02 11:17 | Outpatient (CLI) | payer MEDICAID, SELFPAY ==
[2019-09-02 12:43] LABS: HCG Quant, Pregnancy 45 mIU/mL (1-3)
== END 2019-09-02 11:37 ==
PROVIDERS: PCP Nurse Practitioner Family; Visit Provider Nurse Practitioner Women's Health
DX: N92.6 Irregular menstruation, unspecified (principal); Z30.41 Encounter for surveillance of contraceptive pills
CPT/HCPCS: 36415; 84702

== ENCOUNTER 2019-11-03 11:48 | Outpatient (REF) | payer MEDICAID, SELFPAY ==
--- NOTE | 2019-11-03 11:00 | PAPFT_PTH ---
PATIENT: Fabioal Valadez LOC: N U#:[id number] AGE/SX: 19/F ROOM: RE11/03/[address]: Grace Cook CNM : 2000 BED: DIS: 11/03/2019 SPEC #: [id number] RECD: 11/03/19 12:59 STATUS: JON REQ #: [id number] FRAN: 11/03/19 11:[address]: Grace Cook DEPT: [facility] Cytology RECD BY: Luzmaria Mejia ENTERED: 11/03/19 12:59 SP TYPE: PAPFT OTHR DR: Dalila Rodriguez Tissues: 1 - CX/ENDOCX FOR PAP SMEARS Procedures: PAP THIN PREP/UVM Screening Comments: [id number]
[2019-11-03 13:30] LABS: Glucose,1 Hr (Glucola) 124 mg/dL (80-140)
[2019-11-03 13:44] LABS: Abs Immature Grans 0.03 k/cumm (0.0-0.09); Absolute Basophil Count 0.01 k/cumm (0.0-0.2); Absolute Eosinophil Count 0.06 k/cumm (0.0-0.7); Absolute Monocyte Count 0.78 k/cumm (0.11-0.7); Absolute Neutrophil Count 5.52 k/cumm (1.2-6.7); Basophils % 0.1; Eosinophils % 0.7; HCT 37.8 % (36.0-46.0); HGB 13.1 g/dL (12.0-15.5); Immature Grans % 0.4 %; Lymphocytes % 22.9; Mean Corp. HGB Concentration 34.7 g/dL (32.0-36.0); Mean Corpuscular Hemoglobin 29.3 pg (27.0-33.0); Mean Corpuscular Volume 84.6 fL (80-95); Mean Platelet Volume 10.6 fL (8.0-11.0); Monocytes % 9.4; Neutrophils % 66.5; Platelet Count 280 x1000/uL (130-400); RBC 4.47 m/cumm (4.00-5.20); RBC Distribution Width 13.2 % (11.7-14.6)
[2019-11-03 13:56] LABS: TSH (W/Ref FT4) 2.25 uIU/mL (0.36-3.74)
[2019-11-03 14:07] LABS: *AMPHETAMINES SCREEN URINE Negative (Negative); *BARBITURATES SCREEN URINE Negative (Negative); *BENZODIAZEPINES SCREEN URINE Negative (Negative); Cannabinoids THC POSITIVE (Negative); Cocaine Screen,Urine Negative (Negative); METHADONE URINE SCREEN Negative (Negative); OPIATES URINE SCREEN Negative (Negative)
[2019-11-03 14:12] LABS: Tricyclic Antidepressants Negative (Negative)
[2019-11-04 10:05] LABS: Hepatitis B Surface Ag Negative (Negative)
[2019-11-04 11:03] LABS: HIV-1/2 Ag & Ab Screen Negative (Negative)
[2019-11-04 11:04] LABS: Hepatitis C Ab w Rflx HCV PCR Negative (Negative)
[2019-11-04 15:00] LABS: Chlamydia Result Negative (Negative); GC Result Negative (Negative)
[2019-11-05 10:24] LABS: Syphilis Total Ab w/Reflex Nonreactive (Nonreactive)
[2019-11-05 10:26] LABS: Rubella IgG Ab (UVM) Positive (See Note); Varicella IgG Antibody Positive (See Note)
[2019-11-08 05:32] LABS: Buprenorphine Negative; Norbuprenorphine Negative
[2019-11-12 12:23] LABS: Result Summary NEGATIVE; Specimen WB Whole Blood
== END 2019-11-03 12:08 ==
LOC: LBN 11:48
PROVIDERS: PCP Nurse Practitioner Family; Visit Provider Advanced Practice Midwife
DX: Z34.91 Encounter for supervision of normal pregnancy, unspecified, first trimester (principal); Z36.89 Encounter for other specified antenatal screening; Z11.4 Encounter for screening for human immunodeficiency virus [HIV]; Z11.59 Encounter for screening for other viral diseases; Z01.84 Encounter for antibody response examination; Z12.4 Encounter for screening for malignant neoplasm of cervix
CPT/HCPCS: 80307; 82950; 86787; 86803; 86850; 86900; 86901; 87340; 87389; 87491; 87591; 88142; 81220; 84443; 85025; 86762; 86780; 87086

== ENCOUNTER 2019-12-12 19:31 | Emergency (ER) | payer MEDICAID, SELFPAY ==
[2019-12-12 19:35] VITALS: BP 128/72; PULSE 86; RESP 16; TEMP 36.9; O2SAT 98
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
--- NOTE | 2019-12-12 19:45 | DI.RAD_ITS ---
EXAM: XR HAND LT COMPLETE CLINICAL HISTORY: Rule out fracture, right fifth digit contusion ten. TECHNIQUE: 2D digital imaging was performed. COMPARISON: No exams were available for comparison FINDINGS: BONES: No acute fracture is present. No bony destructive lesion is seen. JOINTS: No dislocation present. SOFT TISSUE: Normal. IMPRESSION: Unremarkable radiographs of the left hand. DATA REPOSITORY: RADIATION DOSE DELIVERED:
--- NOTE | 2019-12-12 19:45 | DI.RAD_ITS ---
EXAM: XR HAND RT COMPLETE CLINICAL HISTORY: Rule out retained foreign body/glass/fracture. TECHNIQUE: 2D digital imaging was performed. COMPARISON: No exams were available for comparison FINDINGS: BONES: No acute fracture is present. No bony destructive lesion is seen. JOINTS: No dislocation present. SOFT TISSUE: Normal. No radiopaque foreign body. IMPRESSION: Unremarkable radiographs of the right hand. DATA REPOSITORY: RADIATION DOSE DELIVERED:
[2019-12-12] MEDS: Acetaminophen 325 MG TAB 650 MG PO (20:10)
--- NOTE | 2019-12-12 20:33 | DI.VRAD_ITS ---
PROCEDURE INFORMATION: Exam: XR Left Hand Exam date and time: 12/12/2019 20:14 Age: 19 years old Clinical indication: Pain; Hand; Left; Patient HX: R/O fracture TECHNIQUE: Imaging protocol: XR Left hand. Views: 3 or more views. COMPARISON: No relevant prior studies available. FINDINGS: Bones/joints: The No acute fracture or subluxation. Soft tissues: Unremarkable. IMPRESSION: No acute bony pathology. Dictated and Authenticated by: Ana Perez MD. Ordering:FRITZ Donovan MD
--- NOTE | 2019-12-12 20:34 | DI.VRAD_ITS ---
PROCEDURE INFORMATION: Exam: XR Right Hand Exam date and time: 12/12/2019 19:55 Age: 19 years old Clinical indication: Pain; Hand; Right; Patient HX: R/O fracture, retained fb/glass TECHNIQUE: Imaging protocol: XR Right hand. Views: 3 or more views. COMPARISON: CR RIGHT HAND COMPLETE 09/25/2015 14:17 FINDINGS: Bones/joints: No acute fracture or subluxation. Soft tissues: No radiopaque foreign body is seen. IMPRESSION: No acute bony pathology. No radiopaque foreign body is seen. Dictated and Authenticated by: Ana Perez MD. Ordering:FRITZ Donovan MD
--- NOTE | 2019-12-12 21:48 | NUR.NOTE ---
Nursing Note: Patient has small cuts to her left hand with minimal pieces of glass. She also has bruises to her right knuckles and a small laceration above her right eyebrow. All wounds were cleaned by CHELY UNDERGROUND MINER and glass was removed. Steri strips were placed on eyebrow laceration by AMRITA HARDIN
== END 2019-12-12 22:05 | disposition home or self-care (01) ==
PROVIDERS: Emergency Provider Registered Nurse Emergency; PCP Nurse Practitioner Family
DX: O99.342 Other mental disorders complicating pregnancy, second trimester (principal); O99.322 Drug use complicating pregnancy, second trimester; F12.10 Cannabis abuse, uncomplicated; O99.89 Other specified diseases and conditions complicating pregnancy, childbirth and the puerperium; Z3A.20 20 weeks gestation of pregnancy; S61.422A Laceration with foreign body of left hand, initial encounter; S01.112A Laceration without foreign body of left eyelid and periocular area, initial encounter; S60.221A Contusion of right hand, initial encounter; W25.XXXA Contact with sharp glass, initial encounter; R55 Syncope and collapse
CPT/HCPCS: 99284; 73130

== ENCOUNTER 2019-12-17 17:59 | Emergency (ER) | payer MEDICAID, SELFPAY ==
[2019-12-17 18:10] VITALS: BP 105/70; PULSE 128; RESP 18; TEMP 36.8; O2SAT 97
--- NOTE | 2019-12-17 18:16 | W.ED.GENAD ---
Discharge Plan Disposition Patient Disposition: HOME Condition: Good Discharge Details Chief Complaint: PsychEval Clinical Impression: Depression Primary Care Provider: Dalila Rodriguez ED Provider: Scar Armendariz Home Meds and New Rx's Prescriptions: Continued albuterol sulfate [ProAir HFA] 90 mcg/actuation HFA aerosol inhaler 1 inh IH ONCE RF: 0 PrePlus 27 mg iron- 1 mg tablet 1 tab PO DAILY Qty: 90 RF: 3 ondansetron HCl 4 mg tablet 4 mg PO Q8H PRN (Reason: nausea and vomiting) Qty: 90 RF: 2 Discharge Instructions Instructions: Depression (ED) Additional Instructions: Please follow-up closely with your [facility] in your primary care provider to discuss new medications. If you notice any worsening of your symptoms, or any new symptoms such as vomiting, diarrhea, fever, chills, shortness of breath, chest pain, numbness, weakness, or fainting , please return immediately to the emergency department for reevaluation. Please follow up with your primary care provider as soon as possible for reassessment and reevaluation. As always, it was a pleasure participating in your medical care today. Referrals: Dalila Rodriguez [Primary Care Provider] - Medical Decision Making This is a pleasant 19-year-old G4, P1 21-week female who presents today for evaluation of suicidal ideations. Patient has been off Lamictal for her bipolar since she has been out of concern for the teratogenicity. Since then she has had notable increase in thoughts of self-harm, stating that occasionally she wants to slit her wrists with a knife, but not currently. Something that she states she has done in the past has required admission for before. She states that she regularly thinks of these depressive thoughts, and is looking for help. She also admits to occasional blacking out episodes which she states is been going on for her whole life in which she describes as her bipolar episodes. She denies any vasovagal symptoms. She denies any history of sudden cardiac . She denies any auditory or visual hallucinations. She denies any homicidal ideations. She denies any taking new medications, or any IV or illicit drug use. No other complaints at this time. No other modifying factors. Physical exam is unremarkable, she is slightly tachycardic but otherwise notably comfortable. Heart rate normalized after she was resting in bed. Patient's history and statements are certainly concerning, we will reach out to mental health for further evaluation and recommendations. 7:07 PM The patient has been seen and assessed by mental health, at this time she has no thoughts of self-harm, and she would like to go home. Between mental health and the patient they feel that going home would be best with close follow-up with PCP and mental health on an outpatient basis. Patient feels notably comfortable with this plan and would like to be discharged. Patient will be discharged respecting mental health recommendations. Discussed red flags for which to return. I have extensively reviewed the treatment plan and discharge instructions with the patient. I have addressed all patient concerns at this time. The patient was made aware of what symptoms to monitor for that would warrant a return to the emergency department. Discussed the plan with the patient, they demonstrate verbal understanding and agreement with our assessment and plan at this time. EKG 18: 22 Rate 100, intervals normal aside for a slightly shortened AK at 118, but there is no evidence of delta wave or Crzjy-Oqjpmwryy-Khhax. EKG otherwise unremarkable with no other significant abnormalities. HPI General Date/Time Provider Initiated Documentation: 12/17/19 17:59. HPI Narrative: This is a pleasant 19-year-old G4, P1 21-week female who presents today for evaluation of suicidal ideations. Patient has been off Lamictal for her bipolar since she has been out of concern for the teratogenicity. Since then she has had notable increase in thoughts of self-harm, stating that occasionally she wants to slit her wrists with a knife, but not right now. Something that she states she has done in the past has required admission for before. She states that she regularly thinks of these depressive thoughts, and is looking for help. She also admits to occasional blacking out episodes which she states is been going on for her whole life in which she describes as her bipolar episodes. She denies any vasovagal symptoms. She denies any history of sudden cardiac . She denies any auditory or visual hallucinations. She denies any homicidal ideations. She denies any taking new medications, or any IV or illicit drug use. No other complaints at this time. No other modifying factors. Related Data Home Medications Medication Instructions Recorded Confirmed albuterol sulfate 90 mcg/actuation 1 inh IH ONCE 02/10/19 12/17/19 aerosol inhaler ondansetron HCl 4 mg tablet 4 mg PO Q8H PRN #90 tab 10/15/19 12/17/19 vitamin with calcium 1 tab PO DAILY #90 tab 11/03/19 12/17/19 no.72-iron 27 mg-folic acid 1 mg tablet Previous Rx's Medication Instructions Recorded ondansetron HCl 4 mg tablet 4 mg PO Q8H PRN #90 tab 10/15/19 vitamin with calcium 1 tab PO DAILY #90 tab 11/03/19 no.72-iron 27 mg-folic acid 1 mg tablet Allergies Allergy/AdvReac Type Severity Reaction Status Date / Time latex Allergy Intermediate Swelling/Ra Verified 12/17/19 18:20 sh codeine phosphate AdvReac Intermediate vomitting Verified 12/17/19 18:20 [From Tylenol-Codeine #3] General Stated Complaint: PsychEval DEEDEE: 3 Review of Systems All systems reviewed & are unremarkable except as noted in HPI and below PFSH Medical History Anxiety (Acute 09/02/17) Depression (Resolved) Family history of congenital heart disorder in brother (Acute 04/30/16) transposition of great vessels other extended family members w/ heart dz Ganglion cyst (Resolved) Hemorrhoids in puerperium (Resolved) Insomnia (Resolved) Nausea/vomiting in (Acute ~09/19/19) 1st trimester n/v not relieved by usual measures. Rx for ondansetron. Oral contraceptive use (Acute) PTSD (post-traumatic stress disorder) (Acute) Skin abscess (Resolved) superficial R inner thigh. Drained spontaneously. Nl skin austin on wound culture. Surgical History GANGLION CYST REMOVAL (05/06/15) RIGHT WRIST/DR. STEPHENS Family History Brother Congenital heart anomaly Transposition of the great vessels Mother Cerebral palsy Born 2 months premature Social History Smoking/Tobacco Use Status: Never Alcohol Intake: never Drug use: Occasionally Substance use type: marijuana Details: reports quitting marijuana 4 days ago Do you feel safe at home: Yes Additional Social history: moved into mother's house today, did not feel safe prior living with boyfriend and grandmother Female Reproductive History Menstrual control method: pills History History 4 Para 1 Hx # Term Pregnancies 1 Multiple births 0 Hx # Pregnancies 0 Ectopic pregnancies 0 AB induced 0 Hx Number of Living Children 1 AB spontaneous 2 Past Pregnancies Del. Date GA/Weeks # Outcome Route Wgt Sex Labor Lgth Anesthesia Location Prov Complic 12/26/16 40 No Successful vaginal 3.544 kg Female 1-2 days [facility] Delivery Date: 12/26/16 PROM, spont labor, which was long, used nitrous, meconium, 3 hrs of pushing, nml [facility] Cook Exam Narrative Exam Narrative: 1.Const: Well-nourished, Well-developed, appearing stated age 2.Eyes: PERRL, no conjunctival injection, and symmetrical lids. 3.ENT: Atraumatic external nose and ears. Moist MM. Neck: Symmetric, trachea midline, No thyromegaly. 4.CVS: +S1/S2, No murmurs or gallops. Peripheral pulses 2+ and equal in all extremities. Brisk capillary refill in all extremities. 5.RESP: Unlabored respiratory effort. Clear to auscultation bilaterally. No wheezes rales or rhonchi 6.GI: Soft, Nontender/Nondistended, No hepatosplenomegaly. No guarding or rebound. Appropriately gravid abdomen 7.MSK: Normocephalic/Atraumatic, Extremities w/o deformity or ttp No cyanosis or clubbing, Normal movement of all extremities 8.Skin: Warm, Dry. No rashes or lesions. 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 Sensation grossly intact, no focal neurologic deficits. 10.Psych: (AAO) x3. Appropriate mood and affect Course Vital Signs Vital signs: Vital Signs Temperature 36.8 C 12/17/19 18:10 Pulse 128 H 12/17/19 18:10 Respiratory Rate 18 12/17/19 18:10 Blood Pressure 105/70 12/17/19 18:10 Pulse Oximetry 97 12/17/19 18:10 Temperature 36.8 C 12/17/19 18:10 Temperature Source Temporal Artery Scan 12/17/19 18:10 Pulse 128 H 12/17/19 18:10 Respiratory Rate 18 12/17/19 18:10 Respiratory Effort Non-Labored 12/17/19 18:12 Blood Pressure 105/70 12/17/19 18:10 Pulse Oximetry 97 12/17/19 18:10 Oxygen Delivery Method Room Air 12/17/19 18:10 Oxygen Flow Rate 0 12/17/19 18:10
--- NOTE | 2019-12-17 18:25 | NUR.NOTE ---
pt is cooperative and states she wants to receive help. respirations even and unlabored. skin pink, warm and dry. alert and answers questions appropriately
--- NOTE | 2019-12-17 18:29 | NUR.NOTE ---
pt with [facility] obtaining blood specs, pt in high visibility area near nurses station. 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
[2019-12-17 18:42] LABS: Abs Immature Grans 0.07 k/cumm (0.0-0.09); Absolute Basophil Count 0.01 k/cumm (0.0-0.2); Absolute Eosinophil Count 0.04 k/cumm (0.0-0.7); Absolute Lymphocyte Count 1.81 k/cumm (1.2-3.4); Absolute Monocyte Count 0.84 k/cumm (0.11-0.7); Absolute Neutrophil Count 7.57 k/cumm (1.2-6.7); Basophils % 0.1; Eosinophils % 0.4; HGB 11.8 g/dL (12.0-15.5); Immature Grans % 0.7 %; Lymphocytes % 17.5; Mean Corp. HGB Concentration 34.7 g/dL (32.0-36.0); Mean Corpuscular Hemoglobin 29.7 pg (27.0-33.0); Mean Corpuscular Volume 85.6 fL (80-95); Mean Platelet Volume 9.9 fL (8.0-11.0); Monocytes % 8.1; Neutrophils % 73.2; Platelet Count 241 x1000/uL (130-400); RBC 3.97 m/cumm (4.00-5.20); RBC Distribution Width 13.5 % (11.7-14.6); White Blood Cell Count 10.34 k/cumm (4.4-10.8)
[2019-12-17 19:04] LABS: ALT 15 U/L (14-59); AST 15 U/L (15-37); Albumin 3.1 g/dL (3.4-5.0); Alkaline Phosphatase 47 U/L (46-116); Anion Gap 13.3 mmol/L (3-11); BUN 7 mg/dL (7-18); Bilirubin, Total 0.3 mg/dL (0.2-1.0); CO2 20.7 mmol/L (21.0-32.0); CREATININE 0.85 mg/dL (0.55-1.02); Calcium 8.6 mg/dL (8.5-10.1); Chloride 105 mmol/L (98-107); Glucose 103 mg/dL (74-106); Potassium 3.4 mmol/L (3.5-5.1); Sodium 139 mmol/L (136-145); TSH (W/Ref FT4) 1.31 uIU/mL (0.36-3.74); Total Protein 6.6 g/dL (6.4-8.2)
--- NOTE | 2019-12-17 19:09 | NUR.NOTE ---
provider cancelled urine drug screen
[2019-12-17 19:12] LABS: Salicylate < 2.8 mg/dL (2.8-20.0)
[2019-12-17 19:13] LABS: Acetaminophen < 2 ug/mL (10-30); ETHANOL BLOOD < 3.0 mg/dL (<3)
[2019-12-17 19:22] VITALS: BP 113/67; PULSE 87; RESP 16; O2SAT 97
--- NOTE | 2019-12-17 20:06 | PDOC.MHCN ---
Date of service: 12/17/19 Time of Service: 19:44 Mental Health Crisis Note Presenting Issue How did you arrive at the ED and why did you come: Client drove herself to the ED with depressed mood and thoughts of cutting herself. Precipitating Factors Client reports no SI or HI. Client reported feeling much better now than she did earlier in the day. Client reported stopping her lamictal due to and it is causing her to feel depressed. Client reported that although she was having SI, she would never do anything because she has a 3 yr old daughter and a baby on the way. Disposition BEHAVIOR: cooperative and unremarkable EYE CONTACT: good eye contact MOOD: euthymic AFFECT: normal APPETITE: recent nausea that she believes is due to SLEEP(trouble falling/staying asleep: Client reported always having issues with falling asleep Plan Client feels that she is safe to leave the hospital and stay with her mother who is a big support for her. Client reports that she would like support reaching out to her therapist as well as her PCP to help her with her meds. [facility] will reach out to her PCP tomorrow to coordinate treatment. Client will call this documentation writer in the morning to check in. This documentation writer spoke to Dr. Armendariz about the plan. Client is aware of the ES number if she should need it. Signature Clinician's Name/Title: Collette Patino [facility] Emergency Clinician
== END 2019-12-17 19:25 | disposition home or self-care (01) ==
PROVIDERS: Emergency Provider Student in an Organized Health Care Education/Training Program; PCP Nurse Practitioner Family
DX: O99.342 Other mental disorders complicating pregnancy, second trimester (principal); F41.8 Other specified anxiety disorders; R45.851 Suicidal ideations; Z3A.21 21 weeks gestation of pregnancy
CPT/HCPCS: 36415; 80053; 80307; 93005; 99285; 80320; 80329; 84443; 85025; 93010; 99284

== ENCOUNTER 2020-01-07 02:50 | Outpatient (CLI) | payer MEDICAID, SELFPAY ==
[2020-01-07 13:22] LABS: Abs Immature Grans 0.08 k/cumm (0.0-0.09); Absolute Basophil Count 0.02 k/cumm (0.0-0.2); Absolute Eosinophil Count 0.06 k/cumm (0.0-0.7); Absolute Lymphocyte Count 1.95 k/cumm (1.2-3.4); Absolute Neutrophil Count 5.62 k/cumm (1.2-6.7); Basophils % 0.2; Eosinophils % 0.7; HCT 35.8 % (36.0-46.0); HGB 12.1 g/dL (12.0-15.5); Immature Grans % 0.9 %; Lymphocytes % 22.9; Mean Corp. HGB Concentration 33.8 g/dL (32.0-36.0); Mean Corpuscular Hemoglobin 29.2 pg (27.0-33.0); Mean Corpuscular Volume 86.3 fL (80-95); Mean Platelet Volume 10.2 fL (8.0-11.0); Monocytes % 9.4; Neutrophils % 65.9; Platelet Count 269 x1000/uL (130-400); RBC 4.15 m/cumm (4.00-5.20); RBC Distribution Width 13.6 % (11.7-14.6); White Blood Cell Count 8.53 k/cumm (4.4-10.8)
[2020-01-07 14:14] LABS: ALT 13 U/L (14-59); AST 13 U/L (15-37); Albumin 2.8 g/dL (3.4-5.0); Alkaline Phosphatase 56 U/L (46-116); Anion Gap 12.8 mmol/L (3-11); BUN 5 mg/dL (7-18); Bilirubin, Total 0.2 mg/dL (0.2-1.0); CO2 21.2 mmol/L (21.0-32.0); CREATININE 0.69 mg/dL (0.55-1.02); Calcium 8.4 mg/dL (8.5-10.1); Chloride 103 mmol/L (98-107); Glucose 97 mg/dL (74-106); Sodium 137 mmol/L (136-145); Total Protein 6.3 g/dL (6.4-8.2)
[2020-01-07 14:18] LABS: TSH (W/Ref FT4) 1.66 uIU/mL (0.36-3.74)
[2020-01-08 10:24] LABS: Hepatitis B Surface Ag Negative (Negative)
[2020-01-08 11:19] LABS: Hepatitis C Ab w Rflx HCV PCR Negative (Negative)
[2020-01-08 12:17] LABS: Rubella IgG Ab (UVM) Positive (See Note); Varicella IgG Antibody Positive (See Note)
[2020-01-08 14:07] LABS: HIV-1/2 Ag & Ab Screen Negative (Negative)
[2020-01-09 13:33] LABS: Syphilis Total Ab w/Reflex Nonreactive (Nonreactive)
[2020-01-14 12:53] LABS: Buprenorphine Negative; Norbuprenorphine Negative
== END 2020-01-07 03:10 ==
PROVIDERS: Advanced Practice Midwife; PCP Nurse Practitioner Family; Visit Provider Counselor Addiction (Substance Use Disorder)
DX: F31.81 Bipolar II disorder (principal); Z79.899 Other long term (current) drug therapy; Z34.91 Encounter for supervision of normal pregnancy, unspecified, first trimester; Z11.4 Encounter for screening for human immunodeficiency virus [HIV]; Z11.59 Encounter for screening for other viral diseases; Z01.84 Encounter for antibody response examination
CPT/HCPCS: 36415; 80053; 80307; 86787; 86803; 86850; 86900; 86901; 87340; 87389; 81220; 84439; 84443; 85025; 86762; 86780

== ENCOUNTER 2020-01-13 16:02 | Outpatient (REF) | payer MEDICAID, SELFPAY | END 2020-01-13 16:22 | LOC: LBN 16:02 | PROVIDERS: PCP Nurse Practitioner Family; Visit Provider Advanced Practice Midwife | DX: N89.8 Other specified noninflammatory disorders of vagina (principal); Z34.90 Encounter for supervision of normal pregnancy, unspecified, unspecified trimester | CPT/HCPCS: 87480; 87510; 87660 ==

== ENCOUNTER 2020-02-23 01:54 | Outpatient (CLI) | payer MEDICAID, SELFPAY ==
[2020-02-23 13:47] LABS: HGB 12.1 g/dL (11.2-15.7); MCH 28.9 pg (27.0-33.0); MCHC 33.6 % (32.0-36.0); MCV 85.9 fL (80-95); MPV 9.6 fL (8.0-11.0); Platelet Count 298 10^3/uL (130-400); RBC 4.19 10^6/uL (3.93-5.22); RDW 12.6 % (11.7-14.6); RDW-SD 39.1 fL
[2020-02-23 13:54] LABS: Glucose,1 Hr (Glucola) 98 mg/dL (80-140)
[2020-02-24 13:50] LABS: Chlamydia Result Negative (Negative); GC Result Negative (Negative)
== END 2020-02-23 02:14 ==
PROVIDERS: PCP Nurse Practitioner Family; Visit Provider Advanced Practice Midwife
DX: Z34.90 Encounter for supervision of normal pregnancy, unspecified, unspecified trimester (principal); Z20.2 Contact with and (suspected) exposure to infections with a predominantly sexual mode of transmission
CPT/HCPCS: 36415; 82950; 85027; 87491; 87591

== ENCOUNTER 2020-03-08 21:52 | Outpatient (CLI) | payer MEDICAID, SELFPAY ==
[2020-03-08 22:02] VITALS: BP 113/67; PULSE 84; RESP 18; TEMP 36.7
[2020-03-08 22:06] VITALS: BP 113/67; PULSE 84
[2020-03-08 22:18] VITALS: BP 113/67; PULSE 84; TEMP 36.7
--- NOTE | 2020-03-08 23:17 | W.OBNST ---
Date of service: 03/08/20 Time of Service: 23:17 NST Evaluation Reason for NST Reasons for Nonstress Test: DECREASED MOVEMENT Gestational Age Gestational Age in Weeks and Days: 30 Weeks and 2Days Test and Monitor Explained Test/Monitor Explained: Test Explained and Monitor Explained Vital Signs Blood Pressure: 113/67 Pulse: 84 Temperature: 208.6 F Urine Results Urine Protein: Negative Urine Ketones: Negative Urine Glucose: Negative Urine Blood: Negative NST Information Time on Monitor: 22:10 Date off Monitor: 03/08/20 Time off Monitor: 23:00 Contraction Frequency: infrequent NST Evaluation Patient States Movement: Present FHR Baseline: 140 Variability: Moderate 6-25 bpm Accelerations: 15x15 Decelerations: None NST Results: Reactive Note NST Note Note: Fabiola called with pain under left breast this evening and decreased movement. It started on the right and moved to the left. Exam pos. for intercostal pain consistent with costochondritis. Relief methods discussed. I recommended taking flexeril 5 mg at HS this evening and a tablet was given to her with instructions. Heat or ice for relief and she has a PT appointment tomorrow for back pain. NST Reviewed and Verified by: Maribel Anderson
[2020-03-08 23:25] VITALS: BP 113/67; PULSE 84; TEMP 2.6; TEMP 36.7
--- NOTE | 2020-03-08 23:25 | W.OBNST ---
Date of service: 03/08/20 Time of Service: 23:26 NST Evaluation Reason for NST Reasons for Nonstress Test: DECREASED MOVEMENT Gestational Age Gestational Age in Weeks and Days: 30 Weeks and 2Days Test and Monitor Explained Test/Monitor Explained: Test Explained and Monitor Explained Vital Signs Blood Pressure: 113/67 Pulse: 84 Temperature: 36.7 F Urine Results Urine Protein: Negative Urine Ketones: Negative Urine Glucose: Negative Urine Blood: Negative NST Information Date on Monitor: 03/08/20 Time on Monitor: 22:10 Date off Monitor: 03/08/20 Time off Monitor: 23:00 Total Time on Monitor: 50 Contraction Frequency: infrequent NST Evaluation Patient States Movement: Present FHR Baseline: 140 Variability: Moderate 6-25 bpm Accelerations: 15x15 Decelerations: None NST Results: Reactive Note NST Note NST Reviewed and Verified by: Maribel Anderson
== END 2020-03-08 23:15 | disposition home or self-care (01) ==
LOC: BCD 21:53 → OBS 21:58
PROVIDERS: PCP Nurse Practitioner Family; Referring Provider Advanced Practice Midwife; Visit Provider Advanced Practice Midwife
DX: O36.8130 Decreased fetal movements, third trimester, not applicable or unspecified (principal); Z3A.30 30 weeks gestation of pregnancy
CPT/HCPCS: 59025

== ENCOUNTER 2020-03-30 16:51 | Outpatient (CLI) | payer MEDICAID, SELFPAY ==
[2020-03-30 17:05] VITALS: BP 130/79; PULSE 90; TEMP 207.3; TEMP 97.4
--- NOTE | 2020-03-30 21:40 | W.OBNST ---
Date of service: 03/30/20 Time of Service: 17:00 NST Evaluation Reason for NST Reasons for Nonstress Test: OTHER, SEE COMMENT Gestational Age Gestational Age in Weeks and Days: 33 Weeks and 3Days Test and Monitor Explained Test/Monitor Explained: Test Explained and Monitor Explained Vital Signs Blood Pressure: 130/79 Pulse: 90 Temperature: 207.3 F NST Information Date on Monitor: 03/30/20 Time on Monitor: 16:56 Date off Monitor: 03/30/20 Time off Monitor: 19:55 Total Time on Monitor: 179 NST Interventions: None Contraction Frequency: 0 NST Evaluation Patient States Movement: Present FHR Baseline: 135 Variability: Moderate 6-25 bpm Accelerations: 15x15 Decelerations: None NST Results: Reactive Note NST Note Note: Fabiola reports low back pain and irene-umbilical pain. No evidence of labor. Pain is consistent with umbilical diastasis which is soft. rest and fluids recommended. Instructed to call in the morning if symptoms persist. NST Reviewed and Verified by: Maribel Anderson
[2020-03-30 21:42] VITALS: BP 130/79; PULSE 90; TEMP 207.3; TEMP 97.4
== END 2020-03-30 17:56 | disposition home or self-care (01) ==
LOC: BCD 16:52 → OBS 16:59
PROVIDERS: PCP Nurse Practitioner Family; Visit Provider Advanced Practice Midwife
DX: O26.893 Other specified pregnancy related conditions, third trimester (principal); R10.33 Periumbilical pain; M54.5 Low back pain; M62.08 Separation of muscle (nontraumatic), other site; Z3A.33 33 weeks gestation of pregnancy
CPT/HCPCS: 59025

== ENCOUNTER 2020-04-12 00:15 | Outpatient (CLI) | payer MEDICAID, SELFPAY ==
--- NOTE | 2020-04-12 07:30 | DI.US_ITS ---
EXAM: US OB [facility]IA DOLORES WEIGHT CLINICAL HISTORY: S>D,[id number]. TECHNIQUE: Transabdominal obstetrical ultrasound performed. COMPARISON: No exams were available for comparison FINDINGS:: Number of fetuses: One. position: Vertex. Placental location: Anterior no evidence of previa. BIOMETRIC DATA: BPD: 90mm = 36+ 4 weeks HC: 325mm = 36+ 6 weeks AC: 316mm = 35+4 weeks FL: 65 mm = 33+3 weeks EFW: 2617 Gms = 45% Ultrasound composite Age: 35+4 weeks EDC by ultrasound: 13 May 2020 Heart Rate: 144BPM Amniotic fluid index: 13.4. Amount of fluid is within normal limits. IMPRESSION: size and weight are within the expected range. DATA REPOSITORY:
== END 2020-04-12 00:35 ==
PROVIDERS: PCP Nurse Practitioner Family; Visit Provider Advanced Practice Midwife
DX: Z34.93 Encounter for supervision of normal pregnancy, unspecified, third trimester (principal); O26.843 Uterine size-date discrepancy, third trimester
CPT/HCPCS: 76816

== ENCOUNTER 2020-04-14 03:14 | Observation (INO) | payer MEDICAID, SELFPAY ==
[2020-04-14 04:07] VITALS: BP 119/60; PULSE 95
[2020-04-14 04:14] VITALS: RESP 18; TEMP 36.7
[2020-04-14 04:19] VITALS: BP 119/60; PULSE 95; RESP 18; TEMP 36.7
[2020-04-14 05:21] LABS: Bilirubin Negative (Negative); Blood Negative (Negative); Clarity Clear (Clear); Glucose Negative (Negative); Ketones Negative (Negative); Leukocyte Esterase Negative (Negative); Nitrite Negative (Negative); Urobilinogen 0.2 EU/dL (Up TO 0.2)
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
--- NOTE | 2020-04-14 09:14 | W.PM.DS.N ---
Date of service: 04/14/20 Time of Service: 06:00 DS: Diagnosis Discharge Diagnosis (1) uterine contractions: Status: Acute Asessment and Plan: SVE was performed by RN. UA negative. She has been taking adequate PO fluids. monitor tracing continues to be category 1. I instructed the nurse to give Fabiola the option of continued observation or to return home to try to rest and to report persistent symptoms. Fabiola chose to return home. Signs of labor reviewed. Discharge Plan Disposition Patient Disposition: HOME Condition: Stable Discharge Details Reason For Visit: RULE OUT LABOR Admit Date/Time: 04/14/20 03:14 Admit Provider: Maribel Anderson Attending Provider: Maribel Anderson Primary Care Provider: Dalila Rodriguez Home Meds and New Rx's Prescriptions: No Action albuterol sulfate [ProAir HFA] 90 mcg/actuation HFA aerosol inhaler 1 inh IH ONCE PRNRF: 0 Boostrix Tdap 2.5-8-5 Lf-mcg-Lf/0.5mL syringe 0.5 ml IM ONCE Qty: 0.5 RF: 0 cyclobenzaprine 5 mg tablet 5 mg PO QHS PRNRF: 0 PrePlus 27 mg iron- 1 mg tablet 1 tab PO DAILY Qty: 90 RF: 3 docusate sodium [Colace] 100 mg capsule 100 mg PO DAILY PRNRF: 0 psyllium husk [Daily Fiber] 0.4 gram capsule 0.4 gm PO DAILY PRNRF: 0 fluticasone propionate 110 mcg/actuation HFA aerosol inhaler 1 puff inhalation BID PRNRF: 0 lamotrigine 25 mg tablet 25 mg PO DAILY RF: 0 ondansetron HCl 4 mg tablet 4 mg PO Q8H PRN (Reason: nausea and vomiting) Qty: 90 RF: 2 Discharge Instructions Instructions: Early Labor Signs (DC) Activity:: Activity as Tolerated Equipment/Supplies:: No Equipment Needed Diet:: As Tolerated Discharge Orders Discharge Orders: Discharge Order (Routine); Ordered 04/14/20 Ordered By: Maribel Anderson Discharge Data Discharge Date/Time-TO BE ENTERED AT DEPARTURE: 04/14/20 05:40 DS: Summary Status at Discharge Functional status at discharge: independent ambulation Overall status at discharge: patient is back to baseline Mental Status: mental status grossly normal Speech and Movement: speech and movement normal Mood: congruent mood Affect: normal affect Exam Psych Mental Status: mental status grossly normal Speech and Movement: speech and movement normal Mood: congruent mood Affect: normal affect DS: Data Vitals/I&O Vitals and I&O: Vital Signs Temperature 98.1 F 04/14/20 04:19 Pulse 95 H 04/14/20 04:19 Pulse Rhythm Regular 04/14/20 04:19 Respiratory Rate 18 04/14/20 04:19 Respiratory Depth Normal 04/14/20 04:19 Blood Pressure 119/60 04/14/20 04:19 Oxygen Delivery Method Room Air 04/14/20 04:19 Oxygen Flow Rate 0 04/14/20 04:19 Pain Level 5 04/14/20 04:19 Intake & Output 04/13/20 04/13/20 04/14/20 11:59 23:59 11:59 Weight 238 lb Other: Urine Color Pale Yellow Data Completed and Pending Labs on day of discharge: Labs from last 24 hours 04/14/20 04:00 Urine Color Yellow Urine Clarity Clear Urine pH 7.0 Ur Specific [place] 1.020 Urine Protein Negative Urine Ketones Negative Urine Blood Negative Urine Nitrite Negative Urine Bilirubin Negative Urine Urobilinogen 0.2 Ur Leukocyte Esterase Negative Urine Glucose Negative [facility] Medical History (Updated 04/14/20 @ 09:12 by Maribel Anderson CNM) Anxiety (09/02/17) Depression Family history of congenital heart disorder in brother (04/30/16) transposition of great vessels other extended family members w/ heart dz Ganglion cyst Hemorrhoids in puerperium Insomnia Mood disorder Nausea/vomiting in (~09/19/19) 1st trimester n/v not relieved by usual measures. Rx for ondansetron. Oral contraceptive use PTSD (post-traumatic stress disorder) Skin abscess superficial R inner thigh. Drained spontaneously. Nl skin [place] on wound culture. Surgical History GANGLION CYST REMOVAL (05/06/15) RIGHT WRIST/DR. STEPHENS Family History (Updated 12/29/19 @ 10:45 by Maribel Anderson CNM) Brother Congenital heart anomaly Transposition of the great vessels Mother Cerebral palsy Born 2 months premature Father Bipolar 1 disorder Social History Smoking/Tobacco Use Status: Never Alcohol Intake: never Drug use: Occasionally Substance use type: marijuana Details: reports quitting marijuana 4 days ago Do you feel safe at home: Yes Additional Social history: moved into mother's house today, did not feel safe prior living with boyfriend and grandmother Female Reproductive History Menstrual control method: pills History History 2 Para 1 Hx # Term Pregnancies 1 Multiple births 0 Hx # Pregnancies 0 Ectopic pregnancies 0 AB induced 0 Hx Number of Living Children 1 AB spontaneous 2 Past Pregnancies Del. Date GA/Weeks # Outcome Route Wgt Sex Labor Lgth Anesthesia Location Prov Complic 12/26/16 40 No Successful vaginal 7 lb 13 oz Female 1-2 days [facility] Delivery Date: 12/26/16 PROM, spont labor, which was long, used nitrous, meconium, 3 hrs of pushing, nml [facility]
== END 2020-04-14 05:40 | disposition home or self-care (01) ==
PROVIDERS: Admitting Provider Advanced Practice Midwife; PCP Nurse Practitioner Family; Visit Provider Advanced Practice Midwife
DX: O60.03 Preterm labor without delivery, third trimester (principal); Z3A.35 35 weeks gestation of pregnancy
CPT/HCPCS: 99217; 81003; G0378

== ENCOUNTER 2020-04-14 21:45 | Observation (INO) | payer MEDICAID, SELFPAY ==
[2020-04-14 22:35] VITALS: BP 108/65; PULSE 82; RESP 20; TEMP 36.3
[2020-04-14 22:42] VITALS: BP 108/65; PULSE 82
[2020-04-15] MEDS: Ondansetron 4 MG TAB 8 MG PO (00:37)
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
== END 2020-04-15 01:16 | disposition home or self-care (01) ==
PROVIDERS: Admitting Provider Advanced Practice Midwife; PCP Nurse Practitioner Family; Visit Provider Advanced Practice Midwife
DX: O60.03 Preterm labor without delivery, third trimester (principal); Z3A.35 35 weeks gestation of pregnancy; O26.893 Other specified pregnancy related conditions, third trimester; R11.2 Nausea with vomiting, unspecified
CPT/HCPCS: 85027; 86900; 86901; 99217; G0378; J8597

== ENCOUNTER 2020-04-20 22:04 | Outpatient (REF) | payer MEDICAID, SELFPAY ==
[2020-04-20 22:58] LABS: *AMPHETAMINES SCREEN URINE Negative (Negative); *BARBITURATES SCREEN URINE Negative (Negative); *BENZODIAZEPINES SCREEN URINE Negative (Negative); Cannabinoids THC Negative (Negative); Cocaine Screen,Urine Negative (Negative); METHADONE URINE SCREEN Negative (Negative); OPIATES URINE SCREEN Negative (Negative)
[2020-04-20 23:00] LABS: Tricyclic Antidepressants Negative (Negative)
[2020-04-26 08:27] LABS: Buprenorphine Negative
== END 2020-04-20 22:24 ==
LOC: LBN 22:04
PROVIDERS: PCP Nurse Practitioner Family; Visit Provider Advanced Practice Midwife
DX: Z34.93 Encounter for supervision of normal pregnancy, unspecified, third trimester (principal)
CPT/HCPCS: 80307; 87081

== ENCOUNTER 2020-05-16 15:07 | Outpatient (CLI) | payer MEDICAID, SELFPAY ==
[2020-05-16 15:31] VITALS: BP 121/69; PULSE 100; TEMP 36.8
[2020-05-16 15:32] VITALS: BP 121/69; PULSE 100
--- NOTE | 2020-05-16 16:07 | W.OBNST ---
Date of service: 05/16/20 Time of Service: 16:07 NST Evaluation Reason for NST Reasons for Nonstress Test: DECREASED MOVEMENT Gestational Age Gestational Age in Weeks and Days: 40 Weeks and 1Days Test and Monitor Explained Test/Monitor Explained: Patient Verbalized Understanding Vital Signs Blood Pressure: 121/69 Pulse: 100 Temperature: 98.2 F NST Information Date on Monitor: 05/16/20 Time on Monitor: 15:24 Date off Monitor: 05/16/20 Time off Monitor: 15:49 Total Time on Monitor: 25 NST Interventions: PO Hydration and Notify Provider Contraction Frequency: 0 NST Evaluation Patient States Movement: Present and Decreased FHR Baseline: 150 Variability: Moderate 6-25 bpm Accelerations: 15x15 Decelerations: None NST Results: Reactive Note NST Note Note: Fabiola reported decreased movement at her office visit today. Baby was moving well during NST. Signs of labor reviewed NST Reviewed and Verified by: Maribel Anderson
[2020-05-16 16:09] VITALS: BP 121/69; PULSE 100; TEMP 36.8
== END 2020-05-16 15:50 | disposition home or self-care (01) ==
LOC: BCD 15:12 → OBS 15:21
PROVIDERS: PCP Nurse Practitioner Family; Visit Provider Advanced Practice Midwife
DX: O36.8130 Decreased fetal movements, third trimester, not applicable or unspecified (principal); Z3A.40 40 weeks gestation of pregnancy
CPT/HCPCS: 59025

== ENCOUNTER 2020-05-22 11:18 | Inpatient (IN) | payer MEDICAID, SELFPAY ==
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
[2020-05-22 12:35] VITALS: BP 124/58; PULSE 95; RESP 16; TEMP 36.7; O2SAT 96
[2020-05-22 12:36] VITALS: BP 124/58; PULSE 95; RESP 16; TEMP 36.7; O2SAT 96
[2020-05-22 12:55] LABS: HCT 36.5 % (36.0-46.0); HGB 11.9 g/dL (11.2-15.7); MCH 27.2 pg (27.0-33.0); MCHC 32.6 % (32.0-36.0); MCV 83.3 fL (80-95); MPV 10.3 fL (8.0-11.0); Platelet Count 257 10^3/uL (130-400); RBC 4.38 10^6/uL (3.93-5.22); RDW 13.4 % (11.7-14.6); WBC 10.14 10^3/uL (4.4-10.8)
[2020-05-22] MEDS: miSOPROStol 25 MCG TAB 50 MCG PO ×2 (13:21→17:14)
[2020-05-22 17:21] VITALS: BP 118/60; PULSE 92; RESP 18; TEMP 36.7
[2020-05-22 20:16] VITALS: BP 116/59; PULSE 85; RESP 18; TEMP 36.6
--- NOTE | 2020-05-22 21:22 | W.PM.OBNL1 ---
Date of service: 05/22/20 Time of Service: 21:22 Informed Consent Informed Consent: Induction of Labor (misoprostel IOL) Pelvic Exam Dilation: 4 Effacement (%): 75 station: -3 Cervix Position: mid Consistency: soft Vaginal Exam Presentation: Cephalic Contractions Monitor Mode: External Contraction Frequency(min): irregular every 2-4 minutes Contraction Duration(sec): 40-70 seconds Intensity: Mild/Moderate Fetus A Monitor: External (US) Heart Rate Baseline: 140 Presentation: Cephalic Variability: Moderate (6-25 BPM) Categories: Category I FHR Rhythm: Regular Characteristics: Normal Accelerations: Present Decelerations: None Amniotic Membrane Status: Intact Assessment Note: category 1 tracing @ 2130, will change to intermittent auscultation per protocol Assessment and Plan Assessment and plan (1) Post term , 41 weeks: Status: Acute Assessment and plan: A: IOL for postdates, early active labor after 2 doses of misoprostel Category 1 tracing, multiipara P: Hold 3rd dose, intermittent ausculation of FHT Expectant management & comfort measures prn, Anticipate Objective Temp Pulse Resp BP Pulse Ox 97.9 F 85 18 116/59 L 96 05/22/20 20:16 05/22/20 20:16 05/22/20 20:16 05/22/20 20:16 05/22/20 12:36 Laboratory Results WBC 10.14 10^3/uL (4.4-10.8) 05/22/20 12:40 RBC 4.38 10^6/uL (3.93-5.22) 05/22/20 12:40 Hgb 11.9 g/dL (11.2-15.7) 05/22/20 12:40 Hct 36.5 % (36.0-46.0) 05/22/20 12:40 MCV 83.3 fL (80-95) 05/22/20 12:40 MCH 27.2 pg (27.0-33.0) 05/22/20 12:40 MCHC 32.6 % (32.0-36.0) 05/22/20 12:40 RDW 13.4 % (11.7-14.6) 05/22/20 12:40 Plt Count 257 10^3/uL (130-400) 05/22/20 12:40 MPV 10.3 fL (8.0-11.0) 05/22/20 12:40 Patient ABO/Rh A Positive 05/22/20 12:40 Antibody Screen Negative 05/22/20 12:40 Vital Signs Reviewed: Yes Objective Narrative Objective Narrative: category 1 tracing Pt has had misoprostel 50 mcg PO q4 hrs x2 Minor cervical change noted from admission exam Clear increase in uterine activity and pt discomfort noted now Afebrile and normotensive Subjective Interval history since last seen: contractions are increasingly uncomfortable, mostly feels in her back but recently more discomfort in her lower abd. No bleeding. No ROM, no nausea or vomiting.
[2020-05-22] MEDS: lamoTRIgine 25 MG TAB 50 MG PO (21:35)
[2020-05-22 22:57] VITALS: BP 104/59; PULSE 89
[2020-05-22 23:34] VITALS: PULSE 74; O2SAT 100
[2020-05-23] VITALS (19 sets, daily range): BP systolic 98–134; BP diastolic 55–76; PULSE 64–120; RESP 14–18; TEMP 36.6–37.1; O2SAT 97–100
--- NOTE | 2020-05-23 00:59 | PGE_ITS ---
Date of service: 05/23/20 Time of Service: 00:59 Informed Consent Informed Consent: Regional Anesthesia and Risk,Benefits,Alternatives Discussed Pelvic Exam Dilation: 5 Effacement (%): 90 station: -2 Cervix Position: mid Consistency: soft Pooling: Positive Contractions Monitor Mode: Palpation Intensity: Moderate/Strong Fetus A Monitor: Doppler Heart Rate Baseline: 150 Presentation: Cephalic FHR Rhythm: Regular Characteristics: Normal Accelerations: Present Decelerations: None Assessment Note: Intermittent auscultation Assessment and Plan Assessment and plan (1) Post term , 41 weeks: Status: Acute Assessment and plan: A: active labor, desire for regional anesthesia P: Nursing hospital supervisor notified to page STEEL UNLOADER Start IV access and IVF bolus Pt is candidate for intrathecal, will discuss with STEEL UNLOADER and pt Anticipate Objective Vital Signs Reviewed: Yes Objective Narrative Objective Narrative: Pt was restless and moving about her room, was in the bathroom, on the ball, then resting LLP, began using nitrous 2 hrs ago. Appears to be coping well, breathing hard through her contractions, resting between FHT per intermittent auscultation has been reassuring Vomited x1 and reporting increasing pelvic pressure SVE 5/90% midpelvis and soft, vtx descending to -2, intact membranes Subjective Interval history since last seen: I can't do this anymore, I'm in so much pain. I would like an epidural.
[2020-05-23] MEDS: fentaNYL 100 MCG/2 ML VIAL IT (02:03)
[2020-05-23] MEDS: Bupivacaine 0.25% Pres-Free 10 ML VIAL IT (02:03)
--- NOTE | 2020-05-23 03:03 | W.PM.OBNL1 ---
Date of service: 05/23/20 Time of Service: 03:03 Pelvic Exam Dilation: 9 Effacement (%): 100 station: -1 Contractions Monitor Mode: External Contraction Frequency(min): every 2-4 minutes Intensity: Strong Fetus A Monitor: External (US) Categories: Category I Amniotic Membrane Status: Ruptured Rupture Method: Artifical Amniotic Fluid: Clear Amount: scant Date of Membrane Rupture: 05/23/20 Time of Membrane Rupture: 03:00 Assessment and Plan Assessment and plan (1) Post term , 41 weeks: Status: Acute Assessment and plan: A: active labor, intrathecal anesthesia category 1 tracing, scant clear fluid P: anticipate Objective Vital Signs Reviewed: Yes Objective Narrative Objective Narrative: Pt resting in bed after intrathecal placed, States she is comfortable though not sleeping AROM for scant fluid, vtx-1, 9 cm dilation Category 1 tracing and accel noted with scalp stim during AROM Pt positioned in LLP for rest and passive descent Subjective Interval history since last seen: Excellent relief after intrathecal placed.
[2020-05-23] MEDS: Oxytocin/Normal Saline 30 UNIT/500 ML BAG 95 UNITS IV (04:00)
[2020-05-23] MEDS: Ondansetron O.D.T. 4 MG TABEF PO ×2 (05:48→17:34)
[2020-05-23] MEDS: Naloxone 0.4 MG/ML VIAL IVP ×2 (09:12→19:01)
--- NOTE | 2020-05-23 09:26 | W.OBDELIVERY ---
Date of service: 05/23/20 Time of Service: 05:32 OB Labor/ Delivery Information Baby A Delivery Delivery Method: Spontaneaous Presentation: Cephalic Cephalic Position: Vertex Vertex Position: Left Occipital Anterior Breech Position: N/A Cord Description-Baby A: 3 Vessels Amniotic Fluid: Meconium Estimated Blood Loss: 450 Delivery Outcome: Liveborn Transferred: Remains with Mother Note: Pain relief from intrathecal achieved at 0200 and pt rested, AROM @ 0300 for scant fluid at 9 cm, color not appreciated at the time, pt continued to rest until 0344 when she felt urges to bear down. EFM had remained category 1, SVE for full dilation and vtx @ 0 station, 2nd stage huddle completed. Pt encouraged to push with resultant FHT decels noted for category 2 tracing, variability remained moderate. Decels noted slow to recover, pt repositioned to LLP and 02 per mask administered, excellent maternal pushing efforts for a 15 minute period resulted in while sidelying of male over intact perineum, anterior shoulder came easily, cord looped over posterior shoulder and reduced for delivery of body. Thick brown meconium noted to be draining from 's nostrils and mouth, bulb suction and stim done while on the delivery field, cord clamped and cut by FOB then to warmer for further suctioning and eval by RN. Baby to mother's arms within 5 minutes of delivery, apgars 7/9. Cord blood collected, pitocin infusion begun IV, diane placenta intact with 3VC and meconium stained. Perineum, vulva and vagina inspected and found to be without laceration, bleeding well controlled, excellent mother/baby bonding observed. Providers Nurse Blueprint Maker: Rosibel Cook Circulation Librarian: Keith Vanegas Firer Portable Boiler: Joshua Kirk Nurse: Cecily Ferguson Nurse: Maria Luz Floyd Labor/Delivery Information Number of Babies in Womb: 1 Steroids Given: None Group Beta Strep: Negative Antibiotics Administered: No Rubella Status: Immune Blood Type: A+ Varicella Immunity: Immune Medication in Delivery: nitrous and intrathecal Maternal Complications: None Shoulder Dystocia: No Stages of Labor Onset of Labor Date: 05/22/20 Onset of Labor Time: 21:00 Complete Dilatation Date: 05/23/20 Complete Dilatation Time: 03:43 Labor - Stage 1 Duration: 24 hours and 0 minutes ROM Baby A: 05/23/20 ROM Baby A: 03:00 ROM Total Time- Baby A: [id number] Delivery Date-Baby A: 05/23/20 Delivery Time-Baby A: 03:57 Labor Stage 2 Duration: 14 minutes Placenta Delivery Date-Baby A: 05/23/20 Placenta Delivery Time-Baby A: 04:05 Labor-Stage 3 Duration: 8 minutes Total Length of Labor-Baby A: 6 hours and 57 minutes Placenta Cultured: No Placenta Status: Delivered Baby A Gender: Male Gestational Age in Weeks/Days: 41 Weeks and 1 Days weight: 9 lb 2.034 oz Weight Comment: 4140 gms Length-Baby A: 20.87 in Head Circumference-Baby A: 14.57 in Procedure Procedures: Cord Blood Collection
[2020-05-23 09:46] LABS: COVID-19 RT-PCR UVMMC Result Negative (Negative)
[2020-05-23] MEDS: lamoTRIgine 25 MG TAB 50 MG PO (20:45)
[2020-05-24] MEDS: Omeprazole 20 MG CAPCR PO (07:33)
[2020-05-24 07:42] VITALS: BP 98/54; PULSE 97; RESP 16; TEMP 37
[2020-05-24 07:43] LABS: HCT 29.6 % (36.0-46.0); HGB 9.9 g/dL (11.2-15.7); MCH 27.3 pg (27.0-33.0); MCHC 33.4 % (32.0-36.0); MCV 81.5 fL (80-95); MPV 9.6 fL (8.0-11.0); Platelet Count 211 10^3/uL (130-400); RBC 3.63 10^6/uL (3.93-5.22); RDW 13.6 % (11.7-14.6); RDW-SD 40.3 fL; WBC 9.58 10^3/uL (4.4-10.8)
--- NOTE | 2020-05-24 09:07 | W.PM.OBPNV1 ---
Date of service: 05/24/20 Time of Service: 09:07 Assessment and Plan Assessment and plan (1) Encounter for routine follow-up: Status: Acute Assessment and plan: A: PPD#1, nml recovery, itching and nausea from intrathecal are resolved mild asymptomatic PP anemia noted with hgb 9.9 this morning P: Pt requests Nexplanon insertion today Planning for circumcision Offer support as needed and desired Written instructions reviewed and given to pt Pt desires discharge this afternoon Will resume PNV with iron after first BM F/up in person @ 2 and 6 weeks Subjective Subjective Patient comments: Pain well controlled, Tolerating diet and Flatus present Patient's Mood: tired, happy [employer] baby status: Doing well, Nursing well, Supplemental feeding going well, Rooming in and Strong Bonding Observed [employer] feeding status: Breast and formula feeding and Pumping and bottle feeding Narrative: Pt decided to supplement with formula since her nipples are sore and the baby seems fussy, she is using her breast pump but says there is no milk coming out yet. Pt declines LC Consult Exam Physical Exam Vital signs: Temp Pulse Resp BP Pulse Ox 98.6 F 97 H 16 98/54 L 98 05/24/20 07:42 05/24/20 07:42 05/24/20 07:42 05/24/20 07:42 05/23/20 19:15 Vital Signs Reviewed: Yes Constitutional Constitutional: no acute distress, obese and cooperative HEENT Exam HEENT Exam: Normal Breast Exam Bilateral: Breast Exam: Normal and Soft Nipple Exam: Normal and Bruised Respiratory Exam Respiratory Exam: Normal Cardiovascular Exam Cardiovascular Exam: Normal Abdominal Exam Abdomen: Other (nontender, soft) Fundal Exam Fundus: Below Umbilicus and Firm Exam Perineum: Intact Extremities Exam Extremity Exam: Normal Back/Spine/Pelvis Exam Back Exam: Normal Skin Exam Skin Exam: Normal Additional findings Additional findings: Voiding spontaneously and QS, ambulating well. Pt rec'ed IV Narcan 0.04 mg IV on two occasions yesterday for side effects from intrathecal narcotics. No vomiting since yesterday afternoon, nausea resolved and appetite improved, IVF was discontinued last night. Scratching from generalized puruitis has nearly completely resolved. Results Hemoglobin/Hematocrit: Hgb 9.9 g/dL (11.2-15.7) L 05/24/20 07:33 Hct 29.6 % (36.0-46.0) L 05/24/20 07:33 Abnormal Lab Findings: Abnormal Labs 05/24/20 07:33 RBC 3.63 L Hgb 9.9 L Hct 29.6 L
--- NOTE | 2020-05-24 13:25 | W.PROCNOTE ---
Date of service: 05/24/20 Time of Service: 13:25 Procedure Note Date of procedure: 05/24/20 Procedure: Nexplanon insertion Surgeon/Proceduralist/Physician: Rosibel Cook Procedure Diagnosis: contraception Procedure Indications: day #1 Procedure Description: informed consent discussed and signed by pt Left upper inner arm cleaned with iodine and ETOH, Nexplanon inserted using utility mechanic supervisor's instructions under local anesthesia & sterile technique Radiopaque stick palpable by pt and CNM Pressure dressing applied and post-procedure instructions reviewed f/up in 2 wks
--- NOTE | 2020-05-24 13:30 | W.PM.OBDISCH ---
Date of service: 05/24/20 Time of Service: 13:30 DS: Diagnosis Discharge Diagnosis (1) Encounter for routine follow-up: Status: Acute (2) Term delivered: Status: Acute Discharge Plan Disposition Patient Disposition: HOME Condition: Good Discharge Details Reason For Visit: POSTDATES Admit Date/Time: 05/22/20 11:18 Admit Provider: Rosibel Cook Attending Provider: Rosibel Cook Primary Care Provider: Dalila Rodriguez Hospital Course Hospital Course: Labor induced with misprostel, under intrathecal anesthesia, nml PP course Home Meds and New Rx's Prescriptions: No Action albuterol sulfate [ProAir HFA] 90 mcg/actuation HFA aerosol inhaler 1 inh IH ONCE PRNRF: 0 Boostrix Tdap 2.5-8-5 Lf-mcg-Lf/0.5mL syringe 0.5 ml IM ONCE Qty: 0.5 RF: 0 cyclobenzaprine 5 mg tablet 5 mg PO QHS PRNRF: 0 fluticasone propionate 110 mcg/actuation HFA aerosol inhaler 1 puff inhalation BID PRNRF: 0 lamotrigine 25 mg tablet 50 mg PO DAILY RF: 0 omeprazole 20 mg capsule,delayed release(DR/EC) 20 mg PO DAILY Qty: 14 RF: 2 ondansetron HCl 4 mg tablet 4 mg PO Q8H PRN (Reason: nausea and vomiting) Qty: 90 RF: 2 Discharge Instructions Additional Instructions: Please keep 2 and 6 week appointments 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 Stand Alone Forms: BC Instructions, NB Circumcision Care Inst., NB Instructions, BC Post Vaginal Deliver Activity:: Activity as Tolerated Equipment/Supplies:: No Equipment Needed Diet:: Normal Diet Discharge Orders Discharge Orders: Discharge Order (Routine); Ordered 05/24/20 Ordered By: Rosibel Cook Procedure Procedures: Insertion of Contraceptive Device , Subdermal Implant OB:DS Summary Summary Vaginal Delivery Method: Spontaneaous Episiotomy Description: None Laceration Description: None Laceration Extension: N/A Contraception Discussed Contraception Discussed: Yes Contraceptive Plan: Levonorgestrel Implant (inserted in left arm prior to discharge), Gender-Baby A: Male weight: 9 lb 2.034 oz Status at Discharge Functional status at discharge: independent ambulation Overall status at discharge: patient is progressing back to baseline Mental Status: mental status grossly normal Speech and Movement: speech and movement normal and speech clear Mood: congruent mood Affect: normal affect Exam Physical Exam Vital signs: Temp Pulse Resp BP Pulse Ox 98.6 F 97 H 16 98/54 L 98 05/24/20 07:42 05/24/20 07:42 05/24/20 07:42 05/24/20 07:42 05/23/20 19:15 Constitutional Constitutional: no acute distress, obese and cooperative HEENT Exam HEENT Exam: Normal Neck Exam Neck Exam: Normal Breast Exam Bilateral: Breast Exam: Normal and Soft Respiratory Exam Respiratory Exam: Normal Cardiovascular Exam Cardiovascular Exam: Normal Abdominal Exam Abdomen: Other (nontender, soft) Fundal Exam Fundus: Below Umbilicus and Firm Rectal Exam Rectal Exam: Not Done Exam Perineum: Intact Extremities Exam Extremity Exam: Normal Back/Spine/Pelvis Exam Back Exam: Normal Skin Exam Skin Exam: Normal Neurological Exam Neurological Exam: Normal Psychiatric Exam Psychiatric Exam: Normal (happy, excited) Additional findings Additional findings: Voiding spontaneously and QS, ambulating well. Pt rec'ed IV Narcan 0.04 mg IV on two occasions yesterday for side effects from intrathecal narcotics. No vomiting since yesterday afternoon, nausea resolved and appetite improved, IVF was discontinued last night. Scratching from generalized puruitis has nearly completely resolved. [facility] Medical History (Updated 05/24/20 @ 13:31 by Rosibel Cook) Anxiety (09/02/17) Contraception, device intrauterine Depression Family history of congenital heart disorder in brother (04/30/16) transposition of great vessels other extended family members w/ heart dz Ganglion cyst Hemorrhoids in puerperium Insomnia Mood disorder Nausea/vomiting in (~09/19/19) 1st trimester n/v not relieved by usual measures. Rx for ondansetron. Oral contraceptive use with 12 completed weeks gestation uterine contractions PTSD (post-traumatic stress disorder) Size of fetus inconsistent with dates in third trimester Skin abscess superficial R inner thigh. Drained spontaneously. Nl skin [place] on wound culture. Vaginal discharge Surgical History GANGLION CYST REMOVAL (05/06/15) RIGHT WRIST/DR. STEPHENS Family History (Updated 12/29/19 @ 10:45 by Maribel Anderson CNM) Brother Congenital heart anomaly Transposition of the great vessels Mother Cerebral palsy Born 2 months premature Father Bipolar 1 disorder Social History Smoking/Tobacco Use Status: Never Smoking risk assessment performed?: Yes Alcohol Intake: former Drug use: Occasionally Substance use type: marijuana Do you feel safe at home: Yes Do you feel safe in your relationship?: Yes Additional Social history: previous relationship - see records Female Reproductive History Menstrual control method: pills History History 2 Para 1 Hx # Term Pregnancies 1 Multiple births 0 Hx # Pregnancies 0 Ectopic pregnancies 0 AB induced 0 Hx Number of Living Children 1 AB spontaneous 2 Past Pregnancies Del. Date GA/Weeks # Outcome Route Wgt Sex Labor Lgth Anesthesia Location Prov Complic 12/26/16 40 No Successful vaginal 7 lb 13 oz Female 1-2 days [facility] Delivery Date: 12/26/16 PROM, spont labor, which was long, used nitrous, meconium, 3 hrs of pushing, nml [facility] Rosibel Cook DS: Data Vitals/I&O Vitals and I&O: Vital Signs Temperature 98.6 F 05/24/20 07:42 Pulse 97 H 05/24/20 07:42 Pulse Rhythm Regular 05/23/20 19:15 Respiratory Rate 16 05/24/20 07:42 Respiratory Depth Normal 05/23/20 19:15 Blood Pressure 98/54 L 05/24/20 07:42 Blood Pressure Mean 68 05/24/20 07:42 Pulse Oximetry 98 05/23/20 19:15 Oxygen Delivery Method Room Air 05/22/20 12:36 Oxygen Flow Rate 0 05/22/20 12:36 Pain Level 0 05/22/20 12:36 Intake & Output 05/23/20 05/24/20 05/24/20 23:59 11:59 23:59 Output Total 300 / 600 Balance -300 / 310 Output: Urine 300 / 300 Other: Urine Color Yellow Yellow Urine Appearance Clear Urine Odor None Comment bloody Voiding Methods Toilet Data Completed and Pending Labs on day of discharge: Labs from last 24 hours 05/24/20 07:33 WBC 9.58 RBC 3.63 L Hgb 9.9 L Hct 29.6 L MCV 81.5 MCH 27.3 MCHC 33.4 RDW 13.6 Plt Count 211 MPV 9.6
== END 2020-05-24 14:50 | disposition home or self-care (01) | DRG 807 ==
PROVIDERS: Admitting Provider Advanced Practice Midwife; PCP Nurse Practitioner Family; Visit Provider Advanced Practice Midwife
DX: O77.0 Labor and delivery complicated by meconium in amniotic fluid (principal); Z37.0 Single live birth; O48.0 Post-term pregnancy; O69.89X0 Labor and delivery complicated by other cord complications, not applicable or unspecified; O99.344 Other mental disorders complicating childbirth; Z3A.41 41 weeks gestation of pregnancy; Z11.59 Encounter for screening for other viral diseases; Z30.017 Encounter for initial prescription of implantable subdermal contraceptive; F31.9 Bipolar disorder, unspecified; Z82.79 Family history of other congenital malformations, deformations and chromosomal abnormalities; Z67.10 Type A blood, Rh positive; L29.9 Pruritus, unspecified; R11.0 Nausea; T41.3X5A Adverse effect of local anesthetics, initial encounter
CPT/HCPCS: 11981; 36415; 85027; 86850; 86900; 86901; U0003; J2310; J3010; J3490

== ENCOUNTER 2021-02-17 18:48 | Outpatient (REF) | payer MEDICAID, SELFPAY ==
[2021-02-20 15:18] LABS: Chlamydia Result Negative (Negative); GC Result Negative (Negative)
== END 2021-02-17 18:49 | disposition home or self-care (01) ==
LOC: LBN 18:48
PROVIDERS: PCP Nurse Practitioner Family; Visit Provider Advanced Practice Midwife
DX: Z11.3 Encounter for screening for infections with a predominantly sexual mode of transmission (principal)
CPT/HCPCS: 87491; 87591

== ENCOUNTER 2021-02-21 11:49 | Outpatient (REF) | payer MEDICAID, SELFPAY ==
[2021-02-22 14:01] LABS: COVID-19 RT-PCR UVMMC Result Negative (Negative)
== END 2021-02-21 11:50 | disposition home or self-care (01) ==
LOC: NCHCN 11:49
PROVIDERS: PCP Nurse Practitioner Family; Visit Provider Nurse Practitioner Family
DX: Z20.822 Contact with and (suspected) exposure to COVID-19 (principal)
CPT/HCPCS: U0003

== ENCOUNTER 2021-03-10 15:54 | Outpatient (CLI) | payer MEDICAID, SELFPAY ==
--- NOTE | 2021-03-10 | DI.RAD_ITS ---
Exam(s) XR WRIST RT COMPLETE EXAM: XR WRIST RT COMPLETE CLINICAL HISTORY: RT WRIST PAIN M25.531 CONTUSION VS FX. TECHNIQUE: 2D digital imaging was performed of the right wrist. Four views were obtained. PA, late ral and oblique views were obtained. COMPARISON: No exams were available for comparison FINDINGS: BONES: No acute fracture is present. No bony destructive lesion is seen. JOINTS: The carpal bones are normally aligned. SOFT TISSUE: Normal. IMPRESSION: No acute fracture or dislocation. DATA REPOSITORY: RADIATION DOSE DELIVERED:
== END 2021-03-10 16:14 ==
PROVIDERS: PCP Nurse Practitioner Family; Visit Provider Physician Assistant Medical
DX: M25.531 Pain in right wrist (principal)
CPT/HCPCS: 73110

== ENCOUNTER 2021-05-02 16:24 | Outpatient (REF) | payer MEDICAID, SELFPAY ==
[2021-05-02 21:56] LABS: HCT 45.2 % (36.0-46.0); HGB 14.6 g/dL (11.2-15.7); MCHC 32.3 % (32.0-36.0); MCV 86.8 fL (80-95); MPV 10.9 fL (8.0-11.0); Platelet Count 344 10^3/uL (130-400); RBC 5.21 10^6/uL (3.93-5.22); RDW 12.6 % (11.7-14.6); RDW-SD 40.2 fL; WBC 8.27 10^3/uL (4.4-10.8)
[2021-05-03 07:15] LABS: Iron 94 ug/dL (50-170); Total Iron Binding Capacity 327 ug/dL (250-450); Transferrin Sat 29 % (15-50)
[2021-05-04 04:10] LABS: Vitamin D 25 Total 25.4 ng/mL (30-100)
== END 2021-05-02 16:25 | disposition home or self-care (01) ==
LOC: NCHCN 16:24
PROVIDERS: PCP Nurse Practitioner Family; Visit Provider Nurse Practitioner Family
DX: F31.62 Bipolar disorder, current episode mixed, moderate (principal)
CPT/HCPCS: 82306; 85027; 83540; 83550

== ENCOUNTER 2021-07-06 13:52 | Outpatient (REF) | payer MEDICAID, SELFPAY ==
[2021-07-07 16:41] LABS: COVID-19 RT-PCR UVMMC Result Negative (Negative)
== END 2021-07-06 13:53 | disposition home or self-care (01) ==
LOC: LBN 13:52
PROVIDERS: Visit Provider Physician Assistant Medical
DX: Z20.822 Contact with and (suspected) exposure to COVID-19 (principal); R19.7 Diarrhea, unspecified
CPT/HCPCS: U0003

== ENCOUNTER 2022-02-23 15:29 | Outpatient (REF) | payer MEDICAID, SELFPAY ==
[2022-02-25 17:27] LABS: Chlamydia Result Negative (Negative); GC Result Negative (Negative)
== END 2022-02-23 15:30 | disposition home or self-care (01) ==
LOC: LBN 15:29
PROVIDERS: PCP Nurse Practitioner Family; Visit Provider Advanced Practice Midwife
DX: N89.8 Other specified noninflammatory disorders of vagina (principal); Z01.419 Encounter for gynecological examination (general) (routine) without abnormal findings; Z86.19 Personal history of other infectious and parasitic diseases; Z11.3 Encounter for screening for infections with a predominantly sexual mode of transmission
CPT/HCPCS: 87491; 87591; 87480; 87510; 87660

== ENCOUNTER 2022-09-05 15:57 | Outpatient (REF) | payer MEDICAID, SELFPAY ==
[2022-09-07 13:21] LABS: GC Result Negative (Negative)
[2022-09-07 17:12] LABS: Chlamydia Result Positive (Negative)
== END 2022-09-05 15:58 | disposition home or self-care (01) ==
LOC: LBN 15:57
PROVIDERS: PCP Nurse Practitioner Family; Visit Provider Nurse Practitioner Women's Health
DX: Z11.3 Encounter for screening for infections with a predominantly sexual mode of transmission (principal)
CPT/HCPCS: 87491; 87591

== ENCOUNTER 2022-10-08 14:26 | Outpatient (REF) | payer MEDICAID, SELFPAY ==
[2022-10-10 13:25] LABS: Chlamydia Result Negative (Negative); GC Result Negative (Negative)
== END 2022-10-08 14:27 | disposition home or self-care (01) ==
LOC: LBN 14:26
PROVIDERS: PCP Nurse Practitioner Family; Visit Provider Nurse Practitioner Women's Health
DX: Z11.3 Encounter for screening for infections with a predominantly sexual mode of transmission (principal)
CPT/HCPCS: 87491; 87591

== ENCOUNTER 2022-10-14 11:11 | Emergency (ER) | payer MEDICAID, SELFPAY ==
[2022-10-14 11:14] VITALS: BP 106/63; PULSE 63; RESP 18; TEMP 36.7; O2SAT 100
[2022-10-14 11:33] LABS: Bilirubin Negative (Negative); Blood Trace-intact (Negative); Clarity Clear (Clear); Glucose Negative (Negative); Ketones Negative (Negative); Leukocyte Esterase Moderate (Negative); Nitrite Negative (Negative); Specific Gravity 1.025 (1.005-1.025); Urobilinogen 0.2 mg/dL (Up to 0.2)
[2022-10-14 11:41] LABS: Bacteria Rare HPF (Negative); C & S Indicated? No/Sq. Contamination; Casts Negative LPF (Negative); Crystals Negative HPF (Negative); Epithelial Cells Moderate HPF (Negative); Mucus Negative (Negative); RBC 0-2 HPF (0-2)
[2022-10-14] MEDS: Fluconazole 150 MG TAB PO (12:07)
--- NOTE | 2022-10-14 14:21 | ED.GENADUL_ITS ---
Discharge Plan Disposition Patient Disposition: Home Discharge Details Clinical Impression: Candidal vulvovaginitis Primary Care Provider: Dalila Rodriguez ED Provider: Luzmaria Dickson Home Meds and New Rx's Prescriptions: New fluconazole [Diflucan] 150 mg tablet 150 mg PO DAILY Qty: 1 0RF Continued albuterol sulfate [ProAir HFA] 90 mcg/actuation HFA aerosol inhaler 1 inh IH ONCE PRN Boostrix Tdap 2.5-8-5 Lf-mcg-Lf/0.5mL syringe 0.5 ml IM ONCE Qty: 0.5 0RF ibuprofen 800 mg tablet 800 mg PO Q8H PRN (Reason: pain) Qty: 42 0RF hydroxyzine HCl 25 mg tablet 25 mg PO BID PRN acetylcysteine [NAC] 600 mg capsule 600 mg PO DAILY fluticasone propionate 110 mcg/actuation HFA aerosol inhaler 1 puff inhalation BID PRN omeprazole 20 mg capsule,delayed release(DR/EC) 20 mg PO DAILY Qty: 14 2RF Vraylar 1.5 mg capsule 1.5 mg PO DAILY Mirena 21 mcg/24 hours (8 yrs) 52 mg intrauterine device 1 device intrauterine ONCE Rx Instructions: as a single dose Discharge Instructions Additional Instructions: Take the fluconazole as prescribed Recommend practicing safe sexual practices and wearing protection during intercourse The results of your testing should be back within the next 3 days, we will call you if there is an abnormality Please return earlier should you have new or worsening complaints I am discharging you with 1 additional dose of fluconazole, if you still have symptoms in 72 hours you may repeat the dose Referrals: Dalila Rodriguez [Primary Care Provider] - Discharge Data Discharge Date/Time-TO BE ENTERED AT DEPARTURE: 10/14/22 12:09 Medical Decision Making Otherwise healthy 22-year-old female who presents for vaginal discharge Secondary to recent chlamydial infection, we did perform pelvic exam for further evaluation, on speculum exam, she has erythema of the vaginal harris, she has a white drainage likely consistent with vulvovaginitis and candidiasis, she will be initiated on econazole, 150 mg tablet was supplied, will give 1 additional 150 mg dose for 72-hour repeat as needed Swabs, vaginal pathology are and GC chlamydia are pending at this time Patient encouraged to use protection with intercourse No pelvic tenderness appreciated on exam, specifically no cervical motion tenderness or adnexal tenderness HPI General Date/Time Provider Initiated Documentation: 10/14/22 11:23 . HPI Narrative: This 22-year-old female presents with report of vaginal drainage and discomfort. She denies any fever or chills. She is sexually active and monogamous with her partner since April. She does report recent infection with chlamydia for which she took 10 days of doxycycline. She completed this course approximately a week ago and had a negative repeat exam for test of cure. Most your partner retested, they have been sexually active since that time. Related Data Home Medications Medication Instructions Recorded Confirmed albuterol sulfate 90 mcg/actuation 1 inh inhalation ONCE PRN 12/29/19 10/14/22 aerosol inhaler (ProAir HFA) fluticasone propionate 110 1 puff inhalation BID PRN 04/12/20 10/14/22 mcg/actuation HFA aerosol inhaler omeprazole 20 mg capsule,delayed 20 mg PO DAILY #14 caps 05/03/20 10/14/22 release cariprazine 1.5 mg capsule 1.5 mg PO DAILY 04/04/21 10/14/22 (Vraylar) ibuprofen 800 mg tablet 800 mg PO Q8H PRN pain #42 tabs 06/29/21 10/14/22 acetylcysteine 600 mg capsule (NAC) 600 mg PO DAILY 02/23/22 10/14/22 hydroxyzine HCl 25 mg tablet 25 mg PO BID PRN 02/23/22 10/14/22 levonorgestrel 21 mcg/24 hours (8 1 device intrauterine ONCE 09/05/22 10/14/22 yrs) 52 mg intrauterine device (Mirena) fluconazole 150 mg tablet 150 mg PO DAILY #1 tab 10/14/22 (Diflucan) Previous Rx's Medication Instructions Recorded omeprazole 20 mg capsule,delayed 20 mg PO DAILY #14 caps 05/03/20 release ibuprofen 800 mg tablet 800 mg PO Q8H PRN pain #42 tabs 06/29/21 fluconazole 150 mg tablet 150 mg PO DAILY #1 tab 10/14/22 (Diflucan) Allergies Allergy/AdvReac Type Severity Reaction Status Date / Time latex Allergy Intermediate Swelling/Ra Verified 10/14/22 11:17 sh cat dander Allergy Mild Verified 10/14/22 11:17 codeine phosphate AdvReac Intermediate vomitting Verified 10/14/22 11:17 [From Tylenol-Codeine #3] General Stated Complaint: Urinary DEEDEE: 4 PFSH All Active Problems (Updated 10/14/22 @ 11:48 by NATALYA Kim) Candidal vulvovaginitis (Acute) Chlamydia infection (Acute) Rx sent to pharmacy 09/07/22, pt aware and instructed. Right shoulder pain (Acute) Presence of IUD (Acute) Mood disorder (Acute) Financial difficulty (Acute) Sciatica (Acute) PTSD (post-traumatic stress disorder) (Acute) Anxiety (Acute 09/02/17) Family history of congenital heart disorder in brother (Acute 04/30/16) transposition of great vessels other extended family members w/ heart dz Medical History Depression Ganglion cyst Hemorrhoids in puerperium History of chlamydia Insomnia Size of fetus inconsistent with dates in third trimester Skin abscess superficial R inner thigh. Drained spontaneously. Nl skin [place] on wound culture. Surgical History GANGLION CYST REMOVAL (05/06/15) RIGHT WRIST/DR. STEPHENS Family History Brother Congenital heart anomaly Transposition of the great vessels Mother Cerebral palsy Born 2 months premature Father Bipolar 1 disorder Aunt Breast cancer Social History Smoking/Tobacco Use Status: Never Smoking risk assessment performed?: Yes Alcohol Intake: former Drug use: Occasionally Substance use type: marijuana Do you feel safe at home: Yes Do you feel safe in your relationship?: Yes Additional Social history: previous relationship - see records Female Reproductive History Menstrual control method: pills History History 2 Para 2 Hx # Term Pregnancies 2 Multiple births 0 Hx # Pregnancies 0 Ectopic pregnancies 0 AB induced 0 Hx Number of Living Children 2 AB spontaneous 2 Past Pregnancies Del. Date GA/Weeks # Preg Succ Route Wgt Sex Labor Lgth Anesth esia Location [facility] 12/26/16 40 No vaginal 3543.69 g Female 1-2 days [facility] 05/23/20 41 No vaginal 4139.03 g Male [facility] Mei Cook CNM Delivery Date: 12/26/16 Last Updated by: Rosibel Cook PROM, spont labor, which was long, used nitrous, meconium, 3 hrs of pushing, nml [facility] Delivery Date: 05/23/20 Last Updated by: Caryl Pettit LPN Nitrous; epidural; Meconium amniotic fluid Course Vital Signs Vital signs: Vital Signs Temperature 36.7 C 10/14/22 11:14 Pulse 63 10/14/22 11:14 Respiratory Rate 18 10/14/22 11:14 Blood Pressure 106/63 10/14/22 11:14 Pulse Oximetry 100 10/14/22 11:14 Temperature 36.7 C 10/14/22 11:14 Temperature Source Oral 10/14/22 11:14 Pulse 63 10/14/22 11:14 Respiratory Rate 18 10/14/22 11:14 Respiratory Effort Normal 10/14/22 11:18 Blood Pressure 106/63 10/14/22 11:14 Blood Pressure Position Sitting 10/14/22 11:14 Pulse Oximetry 100 10/14/22 11:14 Oxygen Delivery Method Room Air 10/14/22 11:14 Oxygen Flow Rate 0 10/14/22 11:14 Pain Level 4 10/14/22 11:18 Lab/Test Results Lab/Test Results: 10/14/22 11:50 Vaginal Vaginitis Screen - Final Laboratory Tests Range/Units 10/14/22 11:25 Urine Color (Yellow) Yellow Urine Clarity (Clear) Clear Urine pH (5-8) 6.0 Ur Specific [place] (1.005-1.025) 1.025 Urine Protein (Negative) mg/dL Negative Urine Ketones (Negative) mg/dL Negative Urine Blood (Negative) Trace-intact H Urine Nitrite (Negative) Negative Urine Bilirubin (Negative) Negative Urine Urobilinogen (Up to 0.2) mg/dL 0.2 Ur Leukocyte Esterase (Negative) Moderate H Urine RBC (0-2) HPF 0-2 Urine WBC (0-5) HPF 5-10 Ur Epithelial Cells (Negative) HPF Moderate Urine Crystals (Negative) HPF Negative Urine Bacteria (Negative) HPF Rare Urine Casts (Negative) LPF Negative Urine Mucus (Negative) Negative Ur Culture Indicated? No/Sq. Contamination Urine Glucose (Negative) mg/dL Negative POC- Test(urine) Negative
[2022-10-15 14:14] LABS: Chlamydia Result Negative (Negative); GC Result Negative (Negative)
== END 2022-10-14 12:09 | disposition home or self-care (01) ==
PROVIDERS: Emergency Provider Physician Assistant; PCP Nurse Practitioner Family
DX: B37.31 Acute candidiasis of vulva and vagina (principal)
CPT/HCPCS: 81025; 87491; 87591; 99282; 81003; 81015; 87480; 87510; 87660

== ENCOUNTER 2023-03-04 09:28 | Emergency (ER) | payer MEDICAID, SELFPAY ==
[2023-03-04 09:42] VITALS: BP 114/55; PULSE 83; RESP 18; TEMP 37; O2SAT 98
--- NOTE | 2023-03-04 10:01 | ED.GENADUL_ITS ---
Discharge Plan Disposition Patient Disposition: Home Condition: Good Discharge Details Clinical Impression: Diarrhea, Nausea Primary Care Provider: Dalila Rodriguez ED Provider: Shelly Elam Home Meds and New Rx's Prescriptions: New ondansetron 4 mg tablet,disintegrating 4 mg PO Q6H PRN (Reason: nausea and vomiting) Qty: 10 0RF Continued albuterol sulfate [ProAir HFA] 90 mcg/actuation HFA aerosol inhaler 1 inh IH ONCE PRN Patient Comments: Have not taken in weeks 03/04/23 CT Boostrix Tdap 2.5-8-5 Lf-mcg-Lf/0.5mL syringe 0.5 ml IM ONCE Qty: 0.5 0RF ibuprofen 800 mg tablet 800 mg PO Q8H PRN (Reason: pain) Qty: 42 0RF Patient Comments: Have not taken in weeks 03/04/23 CT hydroxyzine HCl 25 mg tablet 25 mg PO BID PRN Patient Comments: Have not taken in weeks 03/04/23 CT acetylcysteine [NAC] 600 mg capsule 600 mg PO DAILY Patient Comments: Have not taken in weeks 03/04/23 CT fluticasone propionate 110 mcg/actuation HFA aerosol inhaler 1 puff inhalation BID PRN Patient Comments: Have not taken in weeks 03/04/23 CT omeprazole 20 mg capsule,delayed release(DR/EC) 20 mg PO DAILY Qty: 14 2RF Patient Comments: Have not taken in weeks 03/04/23 CT Vraylar 1.5 mg capsule 1.5 mg PO DAILY Patient Comments: Have not taken in weeks 03/04/23 CT Mirena 21 mcg/24 hours (8 yrs) 52 mg intrauterine device 1 device intrauterine ONCE Rx Instructions: as a single dose fluconazole [Diflucan] 150 mg tablet 150 mg PO DAILY Qty: 1 0RF Patient Comments: Have not taken in weeks 03/04/23 CT Discharge Instructions Instructions: Acute Diarrhea (ED) Additional Instructions: Your labs and exam are reassuring here today. This likely viral illness. Please encourage hydration. You may use the Zofran as prescribed if you have any recurrent nausea. You may advance your diet as tolerated but start with easy digestible foods such as bananas, rice, applesauce, toast. Please wash your hands frequently as this is likely contagious. Work note is attached. Please follow-up with your primary care in 1 week for reevaluation. As we discussed, you may use Imodium but do so judiciously to prevent any rebound constipation and still allow for some bowel movements throughout the course the day. Take as directed on the packaging. If you develop fever/chills, increased diarrhea output, inability stay hydrated or other new/worsening symptoms seek care urgently once again. Stand Alone Forms: Work Release Discharge Data Discharge Date/Time-TO BE ENTERED AT DEPARTURE: 03/04/23 11:31 Medical Decision Making Patient is a pleasant 22-year-old female presenting today with chief complaint of nausea and diarrhea. States that symptoms began about 5 days ago and have persisted since then. States that this morning she has had about 6 watery bowel movements. States that some of these can have some amount of solid stool. Denies any fevers but does endorse some chills. States that she has had some nausea as well but denies any vomiting. Minimal p.o. intake although she has been trying to stay fluids. No recent travel. 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 Boyfriend is also sick with upper respiratory symptoms. Denies any recent antibiotics. No vaginal discharge. No change in urinary habits. Denies any melena or hematochezia. On exam, patient appears nontoxic. Mucous membranes are slightly dry. She is hemodynamically stable. Lungs are clear, no cardiac exam. Abdomen is benign. She does indicate the central abdomen around the umbilicus is area of some mild discomfort but no peritoneal findings. We will hydrate the patient, obtain baseline labs, in particular looking for any electrolyte disturbances in the setting of significant diarrhea. As she has had some solid stools as well as no recent antibiotics I have a very low suspicion for C. difficile not feel that testing for this is appropriate at this time. Also completed COVID and test. She declines any antiemetics at this time. Negative for COVID, negative , labs unremarkable. Patient feeling well at this time. We will continue to have her encourage hydration. We will give as needed Zofran to help with recurrent nausea. Will provide work note. Advise follow-up with primary care in 1 week for reevaluation. We did discuss using Imodium judiciously to help with her persistent diarrhea. All of her questions and concerns were addressed, she is in agreement with this plan. HPI General Date/Time Provider Initiated Documentation: 03/04/23 09:28 . Limitations to Documentation: no limitations . Information obtained by: patient and RN notes reviewed . History of Present Illness 22 year old F presents to the emergency department with the chief complaint of nausea, diarrhea, described as moderate, Patient reports no radiation. Patient started experiencing this day(s) and it has been constant. No relieving factors improve symptom(s), No exacerbating factors reported . Patient notes loss of appetite, malaise and nausea/vomiting (nausea, no vomiting); denies chest pain, cough, fever/chills, headaches, rash and shortness of breath. Patient did receive the following treatments prior to arrival, none Related Data Home Medications Medication Instructions Recorded Confirmed albuterol sulfate 90 mcg/actuation 1 inh inhalation ONCE PRN 12/29/19 10/14/22 aerosol inhaler (ProAir HFA) fluticasone propionate 110 1 puff inhalation BID PRN 04/12/20 10/14/22 mcg/actuation HFA aerosol inhaler omeprazole 20 mg capsule,delayed 20 mg PO DAILY #14 caps 05/03/20 10/14/22 release cariprazine 1.5 mg capsule 1.5 mg PO DAILY 04/04/21 10/14/22 (Vraylar) ibuprofen 800 mg tablet 800 mg PO Q8H PRN pain #42 tabs 06/29/21 10/14/22 acetylcysteine 600 mg capsule (NAC) 600 mg PO DAILY 02/23/22 10/14/22 hydroxyzine HCl 25 mg tablet 25 mg PO BID PRN 02/23/22 10/14/22 levonorgestrel 21 mcg/24 hours (8 1 device intrauterine ONCE 09/05/22 03/04/23 yrs) 52 mg intrauterine device (Mirena) fluconazole 150 mg tablet 150 mg PO DAILY #1 tab 10/14/22 (Diflucan) ondansetron 4 mg disintegrating 4 mg PO Q6H PRN nausea and 03/04/23 tablet vomiting #10 tabs Previous Rx's Medication Instructions Recorded omeprazole 20 mg capsule,delayed 20 mg PO DAILY #14 caps 05/03/20 release ibuprofen 800 mg tablet 800 mg PO Q8H PRN pain #42 tabs 06/29/21 fluconazole 150 mg tablet 150 mg PO DAILY #1 tab 04/23/23 (Diflucan) ondansetron 4 mg disintegrating 4 mg PO Q6H PRN nausea and 03/04/23 tablet vomiting #10 tabs Allergies Allergy/AdvReac Type Severity Reaction Status Date / Time latex Allergy Intermediate Swelling/Ra Verified 03/04/23 10:27 sh cat dander Allergy Mild Verified 03/04/23 10:27 codeine phosphate AdvReac Intermediate vomitting Verified 03/04/23 10:27 [From Tylenol-Codeine #3] General Stated Complaint: Nausea/Vomit/Diar DEEDEE: 3 Review of Systems Constitutional Constitutional: Reports as per HPI, Denies chills, Denies fever(s) and Denies headache(s) ENT Ears, Nose, Mouth, and Throat: Denies headache(s) Cardiovascular Cardiovascular: Reports as per HPI, Denies chest pain and Denies dyspnea Respiratory Respiratory: Reports as per HPI, Denies cough and Denies dyspnea Gastrointestinal Gastrointestinal: Reports as per HPI Musculoskeletal Musculoskeletal: Reports as per HPI and Denies back pain Integumentary/Breasts Skin/Breast: Reports as per HPI and Denies rash Neurologic Neurologic: Reports as per HPI and Denies headache(s) PFSH All Active Problems (Updated 03/04/23 @ 11:20 by NATALYA Ochoa) Diarrhea (Acute) Nausea (Acute) Chlamydia infection (Acute) Rx sent to pharmacy 09/07/22, pt aware and instructed. Right shoulder pain (Acute) Presence of IUD (Acute) Mood disorder (Acute) Financial difficulty (Acute) Sciatica (Acute) PTSD (post-traumatic stress disorder) (Acute) Anxiety (Acute 09/02/17) Family history of congenital heart disorder in brother (Acute 04/30/16) transposition of great vessels other extended family members w/ heart dz Medical History Depression Ganglion cyst Hemorrhoids in puerperium History of chlamydia Insomnia Size of fetus inconsistent with dates in third trimester Skin abscess superficial R inner thigh. Drained spontaneously. Nl skin [place] on wound culture. Surgical History GANGLION CYST REMOVAL (05/06/15) RIGHT WRIST/DR. STEHPENS Family History Brother Congenital heart anomaly Transposition of the great vessels Mother Cerebral palsy Born 2 months premature Father Bipolar 1 disorder Aunt Breast cancer Social History Smoking/Tobacco Use Status: Never Smoking risk assessment performed?: Yes Alcohol Intake: former Drug use: Occasionally Substance use type: marijuana Do you feel safe at home: Yes Do you feel safe in your relationship?: Yes Additional Social history: previous relationship - see records Female Reproductive History Menstrual control method: pills History History 2 Para 2 Hx # Term Pregnancies 2 Multiple births 0 Hx # Pregnancies 0 Ectopic pregnancies 0 AB induced 0 Hx Number of Living Children 2 AB spontaneous 2 Past Pregnancies Del. Date GA/Weeks # Preg Succ Route Wgt Sex Labor Lgth Anesth esia Location [facility] Compl 12/26/16 40 No vaginal 3543.69 g Female 1-2 days [facility] 05/23/20 41 No vaginal 4139.03 g Male [facility] Mei Cook CNM Delivery Date: 12/26/16 Last Updated by: Rosibel Cook PROM, spont labor, which was long, used nitrous, meconium, 3 hrs of pushing, nml [facility] Delivery Date: 05/23/20 Last Updated by: Caryl Pettit LPN Nitrous; epidural; Meconium amniotic fluid Exam Const General: cooperative, healthy appearing, comfortable, no acute distress and well developed Nutritional Appearance: average body habitus and well nourished Orientation: alert and awake HENNY Head: normal to inspection Mouth: moist mucous membranes Resp Effort & Inspection: normal respiratory effort, able to speak in complete sentences and no respiratory distress Auscultation: clear to auscultation bilaterally, no rales, no rhonchi and no wheezes Cardio Rate: regular rate Rhythm: regular rhythm Heart Sounds: S1 normal and S2 normal GI Inspection: normal to inspection Palpation: soft, no hepatosplenomegaly, no guarding, no masses, no pulsatile masses, not rigid and nontender Percussion: normal to percussion Auscultation: normal bowel sounds Back/Spine/Pelvis Back: no CVA tenderness Skin General skin exam: no rashes or lesions noted Trauma: no lacerations or abrasions Neuro General: patient alert and patient awake Cognition: normal cognition Speech: speech normal Gait: normal gait Course Vital Signs Vital signs: Vital Signs Temperature 37.0 C 03/04/23 09:42 Pulse 83 03/04/23 09:42 Respiratory Rate 18 03/04/23 09:42 Blood Pressure 114/55 L 03/04/23 09:42 Pulse Oximetry 98 03/04/23 09:42 Temperature 37.0 C 03/04/23 09:42 Temperature Source Temporal Artery Scan 03/04/23 09:42 Pulse 83 03/04/23 09:42 Respiratory Rate 18 03/04/23 09:42 Blood Pressure 114/55 L 03/04/23 09:42 Blood Pressure Position Sitting 03/04/23 09:42 Pulse Oximetry 98 03/04/23 09:42 Oxygen Delivery Method Room Air 03/04/23 09:42 Oxygen Flow Rate 0 03/04/23 09:42
[2023-03-04 10:13] LABS: Bilirubin Negative (Negative); Blood Negative (Negative); Clarity Clear (Clear); Glucose Negative (Negative); Ketones Negative (Negative); Leukocyte Esterase Negative (Negative); Nitrite Negative (Negative); Urobilinogen 0.2 mg/dL (Up to 0.2)
[2023-03-04 10:20] LABS: Abs Immature Grans 0.03 10^3/uL (0.0-0.06); Absolute Basophil Count 0.04 10^3/uL (0.0-0.2); Absolute Eosinophil Count 0.08 10^3/uL (0.0-0.7); Absolute Monocyte Count 0.67 10^3/uL (0.1-0.8); Absolute Neutrophil Count 4.58 10^3/uL (1.2-6.7); Basophils % 0.5; Eosinophils % 1.1; HCT 40.9 % (36.0-46.0); HGB 13.7 g/dL (11.2-15.7); Immature Grans % 0.4; Lymphocytes % 28.9; MCHC 33.5 % (32.0-36.0); MCV 84 fL (80-95); MPV 9.6 fL (8.0-11.0); Monocytes % 8.8; Neutrophils % 60.3; Platelet Count 302 10^3/uL (130-400); RBC 4.89 10^6/uL (3.93-5.22); RDW 12.5 % (11.7-14.6)
[2023-03-04] MEDS: Normal Saline 1,000 ML 1000 ML IV (10:26)
[2023-03-04 10:35] LABS: ALT 19 U/L (14-59); AST 17 U/L (15-37); Albumin 3.9 g/dL (3.4-5.0); Alkaline Phosphatase 58 U/L (46-116); Anion Gap 6.5 mmol/L (3-11); BUN 9 mg/dL (7-18); Bilirubin, Total 0.4 mg/dL (0.2-1.0); CO2 25.5 mmol/L (21.0-32.0); CREATININE 0.9 mg/dL (0.55-1.02); Chloride 103 mmol/L (98-107); Estimated GFR 91.55 (mL/min/1.73m2); Glucose 95 mg/dL (74-106); Magnesium 1.9 mg/dL (1.8-2.4); Potassium 3.8 mmol/L (3.5-5.1); Sodium 135 mmol/L (136-145); Total Protein 7.8 g/dL (6.4-8.2)
== END 2023-03-04 11:31 | disposition home or self-care (01) ==
PROVIDERS: Emergency Provider Physician Assistant; PCP Nurse Practitioner Family
DX: R11.2 Nausea with vomiting, unspecified (principal); R19.7 Diarrhea, unspecified
CPT/HCPCS: 36415; 80053; 81025; 83690; 87426; 96360; 99283; 81003; 83735; 85025; 99284

== ENCOUNTER → 2023-05-01 14:50 | Outpatient (CLI) | payer MEDICAID, SELFPAY ==
--- NOTE | 2023-05-01 12:30 | DI.US_ITS ---
Exam(s) US PELVIS TRANSVAGINAL EXAM: US PELVIS TRANSVAGINAL CLINICAL HISTORY: Pelvic pain, R10.2, r/o ovarian cyst or torsion. TECHNIQUE: Transabdominal and transvaginal pelvic ultrasound was performed using standard protocol. COMPARISON: US US OB MARIA DOLORES WEIGHT from 04/12/2020 FINDINGS: UTERUS: Position: Anteverted. Size: 7.7 long by 3.8 AP by 4.8 transverse cm Endometrium: 0.4 cm. Normal for patient's menstrual status. Myometrium: Unremarkable. Cervix: Nabothian cysts are present. OVARIES: Right: 3.7 x 2.7 x 2.3 cm Cyst or mass: No suspicious cystic or solid masses. Left: 3.4 x 3.3 x 3.1 cm Cyst or mass: No suspicious cystic or solid masses. There is a 3.1 x 2.3 x 2.4 cm simple cyst on the left ovary. DOPPLER: Color: Symmetric and uniform flow to both ovaries. CUL-DE-SAC: Free fluid: None. Other: None. IMPRESSION: 1. Normal-appearing uterus with endometrial stripe within normal limits. 2. Unremarkable bilateral ovaries. No findings to suggest torsion. 3. 3.1 x 2.3 x 2.4 cm simple left ovarian cyst which is likely physiologic. DATA REPOSITORY:
== END ==
PROVIDERS: PCP Nurse Practitioner Family; Visit Provider Physician Assistant
DX: R10.2 Pelvic and perineal pain (principal)
CPT/HCPCS: 76830; 76856

== ENCOUNTER 2023-05-01 19:35 | Outpatient (REF) | payer MEDICAID, SELFPAY ==
[2023-05-01 21:24] LABS: Bilirubin Negative (Negative); Blood Trace-intact (Negative); Clarity Cloudy (Clear); Glucose Negative (Negative); Ketones Negative (Negative); Leukocyte Esterase Negative (Negative); Nitrite Negative (Negative); Specific Gravity 1.025 (1.005-1.025); Urobilinogen 0.2 mg/dL (Up to 0.2); pH 5.5 (5-8)
[2023-05-01 21:33] LABS: Bacteria Few HPF (Negative); Epithelial Cells Negative HPF (Negative); RBC Negative HPF (0-2); WBC Negative HPF (0-5)
[2023-05-01 21:34] LABS: C & S Indicated? No; Casts Negative LPF (Negative); Crystals Many Amorphous HPF (Negative); Mucus Negative (Negative)
[2023-05-03 17:31] LABS: Chlamydia Result Negative (Negative); GC Result Negative (Negative)
== END 2023-05-01 19:36 | disposition home or self-care (01) ==
LOC: LBN 19:35
PROVIDERS: PCP Nurse Practitioner Family; Visit Provider Physician Assistant
DX: Z11.3 Encounter for screening for infections with a predominantly sexual mode of transmission (principal); R39.9 Unspecified symptoms and signs involving the genitourinary system; R30.0 Dysuria
CPT/HCPCS: 87491; 87591; 81003; 81015; 87480; 87510; 87660

== ENCOUNTER 2023-05-02 11:29 | Emergency (ER) | payer MEDICAID, SELFPAY ==
[2023-05-02 11:38] VITALS: BP 103/55; PULSE 86; RESP 16; TEMP 37.2; O2SAT 98
--- NOTE | 2023-05-02 12:15 | DI.CT_ITS ---
Exam(s) CT ABDOMEN PELVIS W EXAM: CT ABDOMEN PELVIS W CLINICAL HISTORY: Lower abd pain, back pain. TECHNIQUE: Imaging Protocol: Axial computed tomography images with coronal and sagittal reformatted images were created and reviewed CONTRAST MATERIAL: Intravenous: Omnipaque-350 100cc Oral: None COMPARISON: CT CT ABDOMEN PELVIS W from 03/09/[address] LUMBAR SPINE RECONS from 05/02/2023 FINDINGS: VISUALIZED LUNG BASES: No nodules nor pleural effusions evident. ABDOMEN: There is no ascites. LIVER: There are no focal hepatic lesions evident. No dilated intrahepatic ducts. GALLBLADDER/BILIARY: No obvious gallbladder pathology. CBD is not dilated. PANCREAS: No evidence of pancreatic mass nor dilatation of the pancreatic duct. SPLEEN: Spleen is not enlarged. No obvious intrasplenic lesions. Splenic and portal veins are paten t. ADRENALS: There are no significant adrenal masses. KIDNEYS:No cysts evident. No solid renal masses. No calculi nor hydronephrosis.. ABDOMINAL AORTA: Abdominal aorta is not enlarged. LYMPH NODES:There is no retroperitoneal nor paraaortic adenopathy. ABDOMINAL WALL: No evidence of significant anterior abdominal wall nor inguinal hernia. GI: There is no evidence of bowel obstruction, free air, nor abscess. There are some abnormal appearing left abdominal small bowel loops which appeared jejunal, minimally prominent and thickened consistent with enteritis pattern. There is no mesenteric swirl sign there i s no high-grade bowel obstruction. No free air. No free fluid. No evidence of intussusception. In addition, the appearance of the colon may reflect subtle colitis pattern versus the colon just being collapsed PELVIS: GI: No evidence of appendicitis.No evidence of sigmoid diverticulitis. LYMPH NODES: There is no intrapelvic nor inguinal adenopathy. REPRODUCTIVE: Uterus exhibits normal size. There is a left ovarian cyst measuring 2.8 by 2.2 cm, pro bably dominant follicular. Right ovary appears unremarkable. There is no free fluid in the pelvis. URINARY BLADDER: No calculi nor obvious masses evident OSSEOUS: No fractures and no significant osseous lesions. IMPRESSION: 1. There is an enteritis pattern in left-sided jejunal loops. There is no evidence of bowel obstruct ion nor ascites nor free air. No regional lymphadenopathy evident. 2. Fluid-filled but otherwise normal appearing distal small bowel/ileal loops. 3. The colon is collapsed. Therefore difficult to evaluate accurately for colitis pattern. Discussed with ER provider RADIATION DOSE DELIVERED: Total DLP DATA REPOSITORY: All CT scans at this facility are submitted to the National Radiology Data Registry (NRDR) Dose Index Registry (DIR) with the [employer] (ACR). RADIATION OPTIMIZATION: All CT scans at this facility use at least one of these dose optimization te chniques: automated exposure control; mA and/or kV adjustment per patient size (includes targeted exa ms where dose is matched to clinical indication); or iterative reconstruction.
--- NOTE | 2023-05-02 12:24 | DI.CT_ITS ---
Exam(s) CT LUMBAR SPINE RECONS EXAM: CT LUMBAR SPINE RECONS CLINICAL HISTORY: Lumbar back pain, leg weakness. TECHNIQUE: Imaging Protocol: Axial computed tomography images with coronal and sagittal reformatted images were created and reviewed COMPARISON: CT CT ABDOMEN PELVIS W from 03/09/2019 FINDINGS: Bone windows provided Bones: There are no fractures, listhesis, nor pars defects. There are no lytic osseous lesions evide nt. No disc space narrowing. Facet joints unremarkable. No facet arthropathy. Sacroiliac joints appear unremarkable. IMPRESSION: 1. No significant osseous findings in the lumbosacral spinal column. All the disc spaces exhibit nor mal height. RADIATION DOSE DELIVERED: Total DLP DATA REPOSITORY: All CT scans at this facility are submitted to the National Radiology Data Registry (NRDR) Dose Index Registry (DIR) with the [employer] (ACR). RADIATION OPTIMIZATION: All CT scans at this facility use at least one of these dose optimization te chniques: automated exposure control; mA and/or kV adjustment per patient size (includes targeted exa ms where dose is matched to clinical indication); or iterative reconstruction.
--- NOTE | 2023-05-02 12:26 | ED.GENADUL_ITS ---
Discharge Plan Disposition Patient Disposition: Home Discharge Details Clinical Impression: Ovarian cyst, Pelvic pain Primary Care Provider: Dalila Rodriguez ED Provider: Luzmaria Dickson Home Meds and New Rx's Prescriptions: New ondansetron 4 mg tablet,disintegrating 4 mg PO Q8H PRN3 Days Qty: 10 0RF cyclobenzaprine 10 mg tablet 10 mg PO Q8H Qty: 10 0RF Continued albuterol sulfate [ProAir HFA] 90 mcg/actuation HFA aerosol inhaler 1 inh IH ONCE PRN Patient Comments: Have not taken in weeks 03/04/23 CT Boostrix Tdap 2.5-8-5 Lf-mcg-Lf/0.5mL syringe 0.5 ml IM ONCE Qty: 0.5 0RF ibuprofen 800 mg tablet 800 mg PO Q8H PRN (Reason: pain) Qty: 42 0RF Patient Comments: Have not taken in weeks 03/04/23 CT hydroxyzine HCl 25 mg tablet 25 mg PO BID PRN Patient Comments: Have not taken in weeks 03/04/23 CT acetylcysteine [NAC] 600 mg capsule 600 mg PO DAILY Patient Comments: Have not taken in weeks 03/04/23 CT fluticasone propionate 110 mcg/actuation HFA aerosol inhaler 1 puff inhalation BID PRN Patient Comments: Have not taken in weeks 03/04/23 CT omeprazole 20 mg capsule,delayed release(DR/EC) 20 mg PO DAILY Qty: 14 2RF Patient Comments: Have not taken in weeks 03/04/23 CT Vraylar 1.5 mg capsule 1.5 mg PO DAILY Patient Comments: Have not taken in weeks 03/04/23 CT Mirena 21 mcg/24 hours (8 yrs) 52 mg intrauterine device 1 device intrauterine ONCE Rx Instructions: as a single dose fluconazole [Diflucan] 150 mg tablet 150 mg PO DAILY Qty: 1 0RF Patient Comments: Have not taken in weeks 03/04/23 CT ondansetron 4 mg tablet,disintegrating 4 mg PO Q6H PRN (Reason: nausea and vomiting) Qty: 10 0RF Discharge Instructions Instructions: Ovarian Cyst (ED) Additional Instructions: Take ibuprofen 600 mg every 8 hours with food Take Flexeril every 8 hours as needed for pain and Do not drive your vehicle for 8 hours after taking this medication Warm compresses Recheck in 72 hours with persistent pain Stand Alone Forms: Work Release Referrals: Dalila Rodriguez [Primary Care Provider] - 3 days Discharge Data Discharge Date/Time-TO BE ENTERED AT DEPARTURE: 05/02/23 16:58 Medical Decision Making <Venus Elliott NP - Last Filed: 05/02/23 15:48> 23-year-old female presents to the ER with a chief complaint of worsening lower abdominal pain she been ongoing for the last 3 days. She reports that she was seen at urgent care yesterday had some vaginal swabs done negative urine test and had a ultrasound done yesterday which showed a small left ovarian cyst. She also reports some lower back pain and right leg weakness. Denies any falls she does have a history of sciatica. She does take the Nexplanon control and Mirena IUD. Other past medical history includes chlamydia depression insomnia and hemorrhoids. Work-up ordered including CBC CMP, magnesium. Labs are largely within normal limits. CT abdomen pelvis ordered. Ultrasound reviewed from yesterday shows a left-sided ovarian cyst. Patient did have a pelvic exam also yesterday results are pending at this time. Care is to be handed off to oncoming provider Luzmaria Dickson he had been CT res ults and disposition. Most likely expected disposition is discharge. Medical Records Medical records reviewed: Yes I reviewed the patient's medical records. Lab Data Lab results reviewed: Yes I reviewed the patient's lab results. Labs: Laboratory Tests Range/Units 05/02/23 05/02/23 05/02/23 12:09 12:21 13:00 WBC (4.4-10.8) 10^3/uL 8.87 RBC (3.93-5.22) 10^6/uL 4.59 Hgb (11.2-15.7) g/dL 13.0 Hct (36.0-46.0) % 38.7 MCV (80-95) fL 84 MCH (27.0-33.0) pg 28.3 MCHC (32.0-36.0) % 33.6 RDW (11.7-14.6) % 12.9 Plt Count (130-400) 10^3/uL 279 MPV (8.0-11.0) fL 9.5 Immature Gran % 0.2 Neutrophils % 58.8 Lymphocytes % 26.0 Monocytes % 12.6 Eosinophils % 2.1 Basophils % 0.3 Nucleated RBC % (0.0-0.3) % 0.0 Absolute Neutrophils (1.2-6.7) 10^3/uL 5.20 Absolute Lymphocytes (1.2-3.4) 10^3/uL 2.31 Absolute Monocytes (0.1-0.8) 10^3/uL 1.12 H Absolute Eosinophils (0.0-0.7) 10^3/uL 0.19 Absolute Basophils (0.0-0.2) 10^3/uL 0.03 Sodium Cancelled 139 Potassium Cancelled 3.9 Chloride Cancelled 105 Carbon Dioxide Cancelled 27.4 Anion Gap Cancelled 6.6 BUN Cancelled 9 Creatinine Cancelled 0.9 Est GFR (CKD-EPI 2020) Cancelled 90.98 Glucose Cancelled 94 Calcium Cancelled 8.9 Magnesium Cancelled 2.2 Total Bilirubin Cancelled 0.2 AST Cancelled 12 L ALT Cancelled 14 Alkaline Phosphatase Cancelled 51 Troponin I Cancelled Total Protein Cancelled 6.8 Albumin Cancelled 3.1 L Range/Units 05/02/23 15:09 WBC (4.4-10.8) 10^3/uL RBC (3.93-5.22) 10^6/uL Hgb (11.2-15.7) g/dL Hct (36.0-46.0) % MCV (80-95) fL MCH (27.0-33.0) pg MCHC (32.0-36.0) % RDW (11.7-14.6) % Plt Count (130-400) 10^3/uL MPV (8.0-11.0) fL Immature Gran % Neutrophils % Lymphocytes % Monocytes % Eosinophils % Basophils % Nucleated RBC % (0.0-0.3) % Absolute Neutrophils (1.2-6.7) 10^3/uL Absolute Lymphocytes (1.2-3.4) 10^3/uL Absolute Monocytes (0.1-0.8) 10^3/uL Absolute Eosinophils (0.0-0.7) 10^3/uL Absolute Basophils (0.0-0.2) 10^3/uL Sodium Potassium Chloride Carbon Dioxide Anion Gap BUN Creatinine Est GFR (CKD-EPI 2020) Glucose Calcium Magnesium Total Bilirubin AST ALT Alkaline Phosphatase Troponin I Cancelled Total Protein Albumin <Luzmaria Yessi, PA - Last Filed: 05/02/23 20:18> 23-year-old female presents to the ER with a chief complaint of worsening lower abdominal pain she been ongoing for the last 3 days. She reports that she was seen at urgent care yesterday had some vaginal swabs done negative urine test and had a ultrasound done yesterday which showed a small left ovarian cyst. She also reports some lower back pain and right leg weakness. Denies any falls she does have a history of sciatica. She does take the Nexplanon control and Mirena IUD. Other past medical history includes chlamydia depression insomnia and hemorrhoids. Work-up ordered including CBC CMP, magnesium. Labs are largely within normal limits. CT abdomen pelvis ordered. Ultrasound reviewed from yesterday shows a left-sided ovarian cyst. Patient did have a pelvic exam also yesterday results are pending at this time. Care is to be handed off to oncoming provider Luzmaria Dickson he had been CT resul ts and disposition. Most likely expected disposition is discharge. 1600: Accepted and transition, CT scan shows possible enteritis pattern and ovarian cyst, patient in no acute distress, suspect symptoms are musculoskeletal in nature, will give Flexeril will take ibuprofen Return precautions reviewed, pending vaginal swabs, denies known risk of STD Return precautions reviewed and patient expressed understanding, discharged home in stable condition with stable vitals HPI <Venus Elliott NP - Last Filed: 05/02/23 15:48> General Mode of arrival: ambulatory . Date/Time Provider Initiated Documentation: 05/02/23 12:07 . Limitations to Documentation: no limitations . Information obtained by: patient, RN notes reviewed and old records reviewed . HPI Narrative: 23-year-old female presents to the ER with a chief complaint of worsening lower abdominal pain she been ongoing for the last 3 days. She reports that she was seen at urgent care yesterday had some vaginal swabs done negative urine test and had a ultrasound done yesterday which showed a small left ovarian cyst. She also reports some lower back pain and right leg weakness. Denies any falls she does have a history of sciatica. She does take the Nexplanon control and Mirena IUD. Other past medical history includes chlamydia depression insomnia and hemorrhoids. Related Data Home Medications Medication Instructions Recorded Confirmed albuterol sulfate 90 mcg/actuation 1 inh inhalation ONCE PRN 12/29/19 04/18/23 aerosol inhaler (ProAir HFA) fluticasone propionate 110 1 puff inhalation BID PRN 04/12/20 04/18/23 mcg/actuation HFA aerosol inhaler omeprazole 20 mg capsule,delayed 20 mg PO DAILY #14 caps 05/03/20 04/18/23 release cariprazine 1.5 mg capsule 1.5 mg PO DAILY 04/04/21 04/18/23 (Vraylar) ibuprofen 800 mg tablet 800 mg PO Q8H PRN pain #42 tabs 06/29/21 04/18/23 acetylcysteine 600 mg capsule (NAC) 600 mg PO DAILY 02/23/22 04/18/23 hydroxyzine HCl 25 mg tablet 25 mg PO BID PRN 02/23/22 04/18/23 levonorgestrel 21 mcg/24 hours (8 1 device intrauterine ONCE 09/05/22 04/18/23 yrs) 52 mg intrauterine device (Mirena) fluconazole 150 mg tablet 150 mg PO DAILY #1 tab 10/14/22 04/18/23 (Diflucan) ondansetron 4 mg disintegrating 4 mg PO Q6H PRN nausea and 03/04/23 04/18/23 tablet vomiting #10 tabs cyclobenzaprine 10 mg tablet 10 mg PO Q8H #10 tabs 05/02/23 ondansetron 4 mg disintegrating 4 mg PO Q8H PRN 3 days #10 tabs 05/02/23 tablet Previous Rx's Medication Instructions Recorded omeprazole 20 mg capsule,delayed 20 mg PO DAILY #14 caps 05/03/20 release ibuprofen 800 mg tablet 800 mg PO Q8H PRN pain #42 tabs 06/29/21 fluconazole 150 mg tablet 150 mg PO DAILY #1 tab 10/14/22 (Diflucan) ondansetron 4 mg disintegrating 4 mg PO Q6H PRN nausea and 03/04/23 tablet vomiting #10 tabs cyclobenzaprine 10 mg tablet 10 mg PO Q8H #10 tabs 05/02/23 ondansetron 4 mg disintegrating 4 mg PO Q8H PRN 3 days #10 tabs 05/02/23 tablet Allergies Allergy/AdvReac Type Severity Reaction Status Date / Time latex Allergy Intermediate Swelling/Ra Verified 05/01/23 11:38 sh cat dander Allergy Mild Verified 05/01/23 11:38 codeine phosphate AdvReac Intermediate vomitting Verified 05/01/23 11:38 [From Tylenol-Codeine #3] General Stated Complaint: Abd Prob DEEDEE: 3 Review of Systems <Venus Elliott NP - Last Filed: 05/02/23 15:48> All systems reviewed & are unremarkable except as noted in HPI and below Gastrointestinal Gastrointestinal: Reports abdominal pain and Reports loose stools PFSH <Venus Elloitt NP - Last Filed: 05/02/23 15:48> All Active Problems (Updated 05/02/23 @ 16:22 by NATALYA Kim) Pelvic pain (Acute) Ovarian cyst (Acute) Chlamydia infection (Acute) Rx sent to pharmacy 09/07/22, pt aware and instructed. Right shoulder pain (Acute) Presence of IUD (Acute) Mood disorder (Acute) Financial difficulty (Acute) Sciatica (Acute) PTSD (post-traumatic stress disorder) (Acute) Anxiety (Acute 09/02/17) Family history of congenital heart disorder in brother (Acute 04/30/16) transposition of great vessels other extended family members w/ heart dz Medical History History of chlamydia Size of fetus inconsistent with dates in third trimester Ganglion cyst Depression Skin abscess superficial R inner thigh. Drained spontaneously. Nl skin [place] on wound culture. Insomnia Hemorrhoids in puerperium Surgical History GANGLION CYST REMOVAL (05/06/15) RIGHT WRIST/DR. STEPHENS Family History Brother Congenital heart anomaly Transposition of the great vessels Mother Cerebral palsy Born 2 months premature Father Bipolar 1 disorder Aunt Breast cancer Social History Smoking/Tobacco Use Status: Never Smoking risk assessment performed?: Yes Alcohol Intake: former Drug use: Occasionally Substance use type: marijuana Do you feel safe at home: Yes Do you feel safe in your relationship?: Yes Additional Social history: previous relationship - see records Female Reproductive History Menstrual control method: pills History History 2 Para 2 Hx # Term Pregnancies 2 Multiple births 0 Hx # Pregnancies 0 Ectopic pregnancies 0 AB induced 0 Hx Number of Living Children 2 AB spontaneous 2 Past Pregnancies Del. Date GA/Weeks # Preg Succ Route Wgt Sex Labor Lgth Anesth esia Location Prov Complic 12/26/16 40 No vaginal 3543.69 g Female 1-2 days [facility] 05/23/20 41 No vaginal 4139.03 g Male [facility] Mei Cook CNM Delivery Date: 12/26/16 Last Updated by: Rosibel Cook PROM, spont labor, which was long, used nitrous, meconium, 3 hrs of pushi ng, nml [facility] Delivery Date: 05/23/20 Last Updated by: Caryl Pettit LPN Nitrous; epidural; Meconium amniotic fluid Exam <Venus Elliott NP - Last Filed: 05/02/23 15:48> Narrative Exam Narrative: Constitutional: Alert and oriented x3. Appears stated age. Normal body habitus. Head: Normocephalic, no trauma. Eyes: Pupils PERRL, Red reflex noted, EOM's intact. Eyelids symmetrical without lesions, discharge, or swelling. ENT: Bilateral TM's WNL, External ear normal to inspection, no mastoid TTP, swelling, or erythema, Nasal turbinates WNL, no nasal discharge. Normal dentition, Posterior pharynx WNL, no exudate. Chest: RRR, Normal S1, S2, distal pulses intact. Resp: Lungs clear to auscultation bilaterally, no wheezes, rales, or rhonchi. Abdomen: Soft, non-distended, Normoactive bowel sounds all 4 quads. Musculoskeletal: Normal gait, 5/5 strength to all four extremities. Skin: No suspicious rashes or lesions. Capillary refill less than 2 sec. Neurologic: Cranial nerves II-XII intact. Alert and oriented x 3. Motor: No deficits noted. Sensory: Intact bilaterally all 4 extremities. Reflexes: DTR's intact bilaterally.. Hematologic/Lymphatic: No ecchymosis, no lymphadenopathy. Course <Venus Elliott NP - Last Filed: 05/02/23 15:48> Vital Signs Vital signs: Vital Signs Temperature 37.2 C 05/02/23 11:38 Pulse 86 05/02/23 11:38 Respiratory Rate 16 05/02/23 11:38 Blood Pressure 103/55 L 05/02/23 11:38 Pulse Oximetry 98 05/02/23 11:38 Temperature 37.2 C 05/02/23 11:38 Pulse 86 05/02/23 11:38 Respiratory Rate 16 05/02/23 11:38 Respiratory Effort Normal, Non-Labored 05/02/23 12:00 Blood Pressure 103/55 L 05/02/23 11:38 Blood Pressure Position Sitting 05/02/23 11:38 Pulse Oximetry 98 05/02/23 11:38 Oxygen Delivery Method Room Air 05/02/23 11:38 Oxygen Flow Rate 0 05/02/23 11:38 Pain Level 6 05/02/23 12:00 Lab/Test Results Lab/Test Results: Laboratory Tests Range/Units 05/02/23 05/02/23 12:09 15:09 Troponin I Cancelled Cancelled Sign Out <Venus Elliott NP - Last Filed: 05/02/23 15:48> Sign Out Data: Sign Out Comment: Pending CT result, Lower abd pain. Most likely Discharge. Last updated by Venus Elliott NP at 05/02/23 15:40
[2023-05-02 12:33] LABS: Abs Immature Grans 0.02 10^3/uL (0.0-0.06); Absolute Basophil Count 0.03 10^3/uL (0.0-0.2); Absolute Eosinophil Count 0.19 10^3/uL (0.0-0.7); Absolute Lymphocyte Count 2.31 10^3/uL (1.2-3.4); Absolute Monocyte Count 1.12 10^3/uL (0.1-0.8); Basophils % 0.3; Eosinophils % 2.1; HCT 38.7 % (36.0-46.0); Immature Grans % 0.2; MCH 28.3 pg (27.0-33.0); MCHC 33.6 % (32.0-36.0); MCV 84 fL (80-95); MPV 9.5 fL (8.0-11.0); Monocytes % 12.6; Neutrophils % 58.8; Platelet Count 279 10^3/uL (130-400); RBC 4.59 10^6/uL (3.93-5.22); RDW 12.9 % (11.7-14.6); RDW-SD 39.3 fL; WBC 8.87 10^3/uL (4.4-10.8)
[2023-05-02 13:21] LABS: ALT 14 U/L (14-59); AST 12 U/L (15-37); Albumin 3.1 g/dL (3.4-5.0); Alkaline Phosphatase 51 U/L (46-116); Anion Gap 6.6 mmol/L (3-11); BUN 9 mg/dL (7-18); Bilirubin, Total 0.2 mg/dL (0.2-1.0); CO2 27.4 mmol/L (21.0-32.0); CREATININE 0.9 mg/dL (0.55-1.02); Calcium 8.9 mg/dL (8.5-10.1); Chloride 105 mmol/L (98-107); Estimated GFR 90.98 (mL/min/1.73m2); Glucose 94 mg/dL (74-106); Magnesium 2.2 mg/dL (1.8-2.4); Potassium 3.9 mmol/L (3.5-5.1); Sodium 139 mmol/L (136-145); Total Protein 6.8 g/dL (6.4-8.2)
[2023-05-02] MEDS: Normal Saline - Diluent 50 ML VIAL IJ (15:17)
[2023-05-02] MEDS: Omnipaque 350 MG/ML 100 ML BTL IJ (15:23)
== END 2023-05-02 16:58 | disposition home or self-care (01) ==
PROVIDERS: Registered Nurse Emergency; Emergency Provider Physician Assistant; PCP Nurse Practitioner Family
DX: R10.2 Pelvic and perineal pain (principal); N83.202 Unspecified ovarian cyst, left side
CPT/HCPCS: 80053; 81025; 99284; 74177; 83735; 84484; 85025; J3490

== ENCOUNTER 2023-06-05 17:57 | Emergency (ER) | payer MEDICAID, SELFPAY ==
[2023-06-05 17:58] VITALS: BP 120/91; PULSE 70; RESP 16; TEMP 36.6; O2SAT 98
--- NOTE | 2023-06-05 17:59 | ED.GENADUL_ITS ---
Discharge Plan Disposition Patient Disposition: Home Condition: Good Discharge Details Clinical Impression: Bipolar disorder current episode depressed Primary Care Provider: Dalila Rodriguez ED Provider: Jerson Liao Home Meds and New Rx's Prescriptions: Continued albuterol sulfate [ProAir HFA] 90 mcg/actuation HFA aerosol inhaler 1 inh IH ONCE PRN Patient Comments: Have not taken in weeks 03/04/23 CT fluticasone propionate 110 mcg/actuation HFA aerosol inhaler 1 puff inhalation BID PRN Patient Comments: Have not taken in weeks 03/04/23 CT Vraylar 1.5 mg capsule 1.5 mg PO DAILY Patient Comments: Have not taken in weeks 03/04/23 CT Discharge Instructions Care Plan Goals: You were seen by [facility] and a safety plan has been developed. Follow the safety plan and follow-up with NK as outlined. Return to the ED for any overwhelming or unsafe feelings, worsening depression, thoughts of self-harm, other concerns. Medical Decision Making Patient presenting to ED for mental health evaluation with increased depression and anger, history of bipolar disorder, feeling overwhelmed with life and management of her children. She denies any SI or HI, is here because she needs help. Does not feel that her Vraylar is doing anything for her. No physical complaints other than hand pain from punching things so will obtain x-ray. Will obtain test and urine drug screen. She is otherwise cleared to be evaluated by mental health. Patient's test is negative. Urine drug screen positive for marijuana only. X-ray of the right hand per my read negative for fracture or dislocation. Preliminary radiology read concurs. Patient is cleared to be evaluated by mental health. Patient seen and evaluated by mental health. Safety plan developed with patient. Patient feels comfortable and better at this point and will follow-up with NK. Return precautions provided. Lab Data Lab results reviewed: Yes I reviewed the patient's lab results. HPI General Mode of arrival: ambulatory . Date/Time Provider Initiated Documentation: 06/05/23 17:59 . Limitations to Documentation: no limitations . Information obtained by: patient . HPI Narrative: Patient presents to ED with complaint of feeling overwhelmed, depressed, angry. Patient reports history of bipolar disorder on Vraylar but becoming unstable, cycling frequently, fearing for her safety of her children. She has not harmed her children. She does not wish to harm her children or herself. Children are currently with her mother. She has a 6-year-old and a 3-year-old. Currently feeling very depressed. Complains of right hand pain from punching things out of anger. Having difficulty controlling her anger. Otherwise no physical complaints. Related Data Home Medications Medication Instructions Recorded Confirmed albuterol sulfate 90 mcg/actuation 1 inh inhalation ONCE PRN 12/29/19 06/05/23 aerosol inhaler (ProAir HFA) fluticasone propionate 110 1 puff inhalation BID PRN 04/12/20 06/05/23 mcg/actuation HFA aerosol inhaler cariprazine 1.5 mg capsule 1.5 mg PO DAILY 04/04/21 06/05/23 (Vraylar) Allergies Allergy/AdvReac Type Severity Reaction Status Date / Time latex Allergy Intermediate Swelling/Ra Verified 05/01/23 11:38 sh cat dander Allergy Mild Verified 05/01/23 11:38 codeine phosphate AdvReac Intermediate vomitting Verified 05/01/23 11:38 [From Tylenol-Codeine #3] General DEEDEE: 3 Review of Systems Narrative: Per HPI PFSH All Active Problems (Updated 06/05/23 @ 21:00 by Jerson Liao MD) Bipolar disorder current episode depressed (Acute) Chlamydia infection (Acute) Rx sent to pharmacy 09/07/22, pt aware and instructed. Right shoulder pain (Acute) Presence of IUD (Acute) Mood disorder (Acute) Financial difficulty (Acute) Sciatica (Acute) PTSD (post-traumatic stress disorder) (Acute) Anxiety (Acute 09/02/17) Family history of congenital heart disorder in brother (Acute 04/30/16) transposition of great vessels other extended family members w/ heart dz Medical History Bipolar disorder Depression Insomnia Surgical History GANGLION CYST REMOVAL (05/06/15) RIGHT WRIST/DR. STEPHENS Family History Brother Congenital heart anomaly Transposition of the great vessels Mother Cerebral palsy Born 2 months premature Father Bipolar 1 disorder Aunt Breast cancer Social History Smoking/Tobacco Use Status: Never Smoking risk assessment performed?: Yes Alcohol Intake: former Drug use: Occasionally Substance use type: marijuana Do you feel safe at home: Yes Do you feel safe in your relationship?: Yes Additional Social history: previous relationship - see records Female Reproductive History Menstrual control method: pills History History 2 Para 2 Hx # Term Pregnancies 2 Multiple births 0 Hx # Pregnancies 0 Ectopic pregnancies 0 AB induced 0 Hx Number of Living Children 2 AB spontaneous 2 Past Pregnancies Del. Date GA/Weeks # Preg Succ Route Wgt Sex Labor Lgth Anesth esia Location Prov Complic 12/26/16 40 No vaginal 3543.69 g Female 1-2 days [facility] 05/23/20 41 No vaginal 4139.03 g Male [facility] Mei Cook CNM Delivery Date: 12/26/16 Last Updated by: Rosibel Cook PROM, spont labor, which was long, used nitrous, meconium, 3 hrs of pushin g, nml [facility] Delivery Date: 05/23/20 Last Updated by: Caryl Pettit LPN Nitrous; epidural; Meconium amniotic fluid Exam Narrative Exam Narrative: Const: WDWN female crying, no distress. HEENT: NC/AT. Normal facial exam. Eyes: Normal conjunctiva and sclera. Neck: Supple. Trachea midline. Lungs: Normal respiratory effort. Lungs are clear. Cor: RRR without murmur/gallop. Good radial pulses. GI: Soft. NT/ND. No guarding or rebound. Neuro: A+O x 3. Normal speech, mentation, gait. Cranial nerves II - XII grossly intact. No gross motor or sensory deficit. Ext: No C/C/E. Psych: Depressed mood and affect. Feels overwhelmed and angry. No SI/HI.
--- NOTE | 2023-06-05 18:00 | DI.RAD_ITS ---
Exam(s) XR HAND RT COMPLETE EXAM: XR HAND RT COMPLETE CLINICAL HISTORY: trauma. TECHNIQUE: 2D digital imaging was performed of the right hand. Three images were obtained. AP, late ral and oblique views were obtained. COMPARISON: CR,XR XR HAND RT COMPLETE from 12/12/2019 FINDINGS: BONES: No acute fracture is present. No bony destructive lesion is seen. JOINTS: No dislocation present. SOFT TISSUE: Normal. IMPRESSION: Unremarkable radiographs of the right hand. DATA REPOSITORY: RADIATION DOSE DELIVERED:
[2023-06-05 18:52] LABS: *AMPHETAMINES SCREEN URINE Negative (Negative); *BARBITURATES SCREEN URINE Negative (Negative); *BENZODIAZEPINES SCREEN URINE Negative (Negative); Cannabinoids THC Positive (Negative); Cocaine Screen,Urine Negative (Negative); METHADONE URINE SCREEN Negative (Negative); OPIATES URINE SCREEN Negative (Negative); Tricyclic Antidepressants Negative (Negative)
--- NOTE | 2023-06-05 19:29 | DI.VRAD_ITS ---
PROCEDURE INFORMATION: Exam: XR Right Hand Exam date and time: 06/05/2023 19:21 Age: 23 years old Clinical indication: Injury or trauma TECHNIQUE: Imaging protocol: Radiologic exam of the right hand. Views: 3 or more views. COMPARISON: CR XR HAND RT COMPLETE 12/12/2019 20:12 FINDINGS: Bones/joints: No acute fracture or subluxation. Soft tissues: Unremarkable. IMPRESSION: No acute bony pathology. Dictated and Authenticated by: Ana Perez MD. Ordering:CHERIE Arthur MD
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
== END 2023-06-05 21:10 | disposition home or self-care (01) ==
PROVIDERS: Emergency Provider Emergency Medicine; PCP Nurse Practitioner Family
DX: F31.9 Bipolar disorder, unspecified (principal); M79.641 Pain in right hand; Z79.899 Other long term (current) drug therapy
CPT/HCPCS: 00123; 80307; 81025; 96127; 99285; 73130; 99284

== ENCOUNTER 2023-06-12 14:28 | Outpatient (REF) | payer MEDICAID, SELFPAY ==
[2023-06-12 16:07] LABS: Vitamin D 25 Total 14.9 ng/mL (30-100)
[2023-06-12 16:20] LABS: TSH (W/Ref FT4) 1.27 uIU/mL (0.36-3.74)
== END 2023-06-12 14:29 | disposition home or self-care (01) ==
LOC: NCHCN 14:28
PROVIDERS: PCP Nurse Practitioner Family; Visit Provider Nurse Practitioner Family
DX: F31.61 Bipolar disorder, current episode mixed, mild (principal); Z79.899 Other long term (current) drug therapy
CPT/HCPCS: 82306; 84443

== ENCOUNTER 2023-09-20 13:47 | Outpatient (CLI) | payer MEDICAID, SELFPAY ==
[2023-09-20 12:54] LABS: HCG Quant, Pregnancy 241 mIU/mL (1-3)
== END 2023-09-20 13:48 | disposition home or self-care (01) ==
LOC: LBO 13:47
PROVIDERS: PCP Nurse Practitioner Family; Visit Provider Advanced Practice Midwife
DX: Z32.01 Encounter for pregnancy test, result positive (principal)
CPT/HCPCS: 36415; 84702

== ENCOUNTER 2023-09-24 04:52 | Outpatient (CLI) | payer MEDICAID, SELFPAY ==
[2023-09-24 09:24] LABS: HCG Quant, Pregnancy 1653 mIU/mL (1-3)
== END 2023-09-24 04:53 | disposition home or self-care (01) ==
LOC: LBO 04:52
PROVIDERS: PCP Nurse Practitioner Family; Visit Provider Advanced Practice Midwife
DX: Z32.01 Encounter for pregnancy test, result positive (principal)
CPT/HCPCS: 36415; 84702

== ENCOUNTER 2023-09-28 10:15 | Emergency (ER) | payer MEDICAID, SELFPAY ==
[2023-09-28 10:18] VITALS: BP 136/44; PULSE 67; RESP 16; TEMP 36.7; O2SAT 100
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
[2023-09-28 10:48] LABS: HCT 39.8 % (36.0-46.0); HGB 13.2 g/dL (11.2-15.7); MCHC 33.2 % (32.0-36.0); MCV 84 fL (80-95); MPV 9.5 fL (8.0-11.0); Platelet Count 266 10^3/uL (130-400); RBC 4.72 10^6/uL (3.93-5.22); RDW-SD 39.8 fL; WBC 6.52 10^3/uL (4.4-10.8)
--- NOTE | 2023-09-28 11:07 | DI.US_ITS ---
Exam(s) US OB 1ST TRIMESTER EXAM: US OB 1ST TRIMESTER CLINICAL HISTORY: cramping, bleeding in first trimester. TECHNIQUE: First trimester obstetrical ultrasound was performed. COMPARISON: US US PELVIS TRANSVAGINAL from 05/01/2023 FINDINGS: There is an intrauterine gestational sac which measures 8 millimeters, or without a discernible yolk sac nor pole therein at this time. No evidence of subchorionic hemorrhage. The endocervical c anal is closed. Maternal ovaries: Right ovary measures 3.5 x 3.1 x 2.1 cm.. It appears unremarkable. The left ovary was not visualize d on today's study due to overlying bowel gas. There are no obvious extra ovarian adnexal masses. No free fluid in the adnexal regions are cul-de-s ac. There is no fluid in the cul-de-sac and adnexal regions. IMPRESSION:: Single intrauterine gestational sac,, presently without visible pole and yolk sac . Probably too early. There is no evidence of subchorionic hemorrhage. No free fluid. Recommend repeat ultrasound after appropriate clinical interval. DATA REPOSITORY:
[2023-09-28 11:26] LABS: Anion Gap 10.7 mmol/L (3-11); BUN 9 mg/dL (7-18); CO2 24.3 mmol/L (21.0-32.0); CREATININE 0.9 mg/dL (0.55-1.02); Calcium 8.5 mg/dL (8.5-10.1); Chloride 106 mmol/L (98-107); Estimated GFR 90.98 (mL/min/1.73m2); Glucose 88 mg/dL (74-106); Potassium 4.1 mmol/L (3.5-5.1); Sodium 141 mmol/L (136-145)
[2023-09-28 11:27] LABS: HCG Quant, Pregnancy 8772 mIU/mL (1-3)
[2023-09-28 12:03] VITALS: BP 110/90; PULSE 69; RESP 14; O2SAT 99
--- NOTE | 2023-09-28 12:30 | DI.VRAD_ITS ---
PROCEDURE INFORMATION: Exam: US First Trimester, Transabdominal and US Duplex Artery or Vein, Ovaries, Limited Exam date and time: 09/28/2023 11:21 AM Age: 23 years old Clinical indication: Lmp or gestational age (in weeks): Lmp 08/31/23; Other: Cramping; TECHNIQUE: Imaging protocol: Real-time transabdominal obstetrical ultrasound of the maternal pelvis and a first trimester , less than 14 weeks 0 days, with image documentation. Real-time duplex ultrasound scan of the arterial or venous flow of the ovaries with B-mode, color Doppler flow and spectral waveform analysis, limited Duplex. Duplex exam was performed to evaluate for torsion and other vascular conditions. COMPARISON: US OB MARIA DOLORES WEIGHT 04/12/2020 12:57 PM FINDINGS: Gestation: An intrauterine gestational sac is seen at the level of the uterine fundus. The gestational sac is empty, without yolk sac or embryo. Embryonic/ heart rate: Not applicable. Extra-embryonic membranes/Placenta: No subchorionic hematoma. Amniotic fluid: Not applicable. BIOMETRY: Gestational age (AUA): 5.7 weeks. Mean sac diameter: The mean sac diameter is 0.80 cm. MATERNAL: Uterus: The uterus measures 9.2 x 4.4 x 4.4 cm, and demonstrates no focal mass. Cervix: The cervix is closed. The cervix measures approximately 4.0 cm in length. Right ovary/adnexa: The right ovary measures 3.5 x 3.1 x 2.1 cm. The right ovary is normal in appearance. The right ovary demonstrates normal arterial and venous flow and normal color Doppler flow. Left ovary/adnexa: The left ovary unable to be delineated. Intraperitoneal space: No free fluid is seen in the pelvis. IMPRESSION: 1. Intrauterine of unknown viability. Empty gestational sac, without yolk sac or embryo. Estimated gestational age is 5.7 weeks. Recommend ultrasound follow-up. 2. No evidence of subchorionic hematoma. COMMENTS: This limited study was ordered as an emergency procedure through the emergency department. This study does not replace the need for full biometry and anatomical evaluation, which can be scheduled routinely through the testing unit. Dictated and Authenticated by: Lisseth Hawkins MD. Ordering:RAOUL Bravo MD
== END 2023-09-28 12:04 | disposition home or self-care (01) ==
PROVIDERS: Emergency Provider Physician Assistant; PCP Nurse Practitioner Family
DX: O20.0 Threatened abortion (principal); Z34.91 Encounter for supervision of normal pregnancy, unspecified, first trimester
CPT/HCPCS: 36415; 80048; 85027; 86850; 86900; 86901; 99284; 76801; 84702; 99283

== ENCOUNTER → 2023-09-30 09:29 | Outpatient (CLI) | payer MEDICAID, SELFPAY ==
--- NOTE | 2023-09-30 08:15 | DI.US_ITS ---
Exam(s) US OB 1ST TRIMESTER EXAM: US OB 1ST TRIMESTER CLINICAL HISTORY: threatened miscarriage, bleeding 1st trimester, O20.9, Z34.90. TECHNIQUE: First trimester obstetrical ultrasound was performed. COMPARISON: US US OB 1ST TRIMESTER from 09/28/2023 FINDINGS: There is again noted an intrauterine gestational sac at the level the uterine fundus. On today's study there is now a small 3 mm diameter yolk sac evident. pole not yet evident. T here appears to be a small subchorionic hemorrhage Maternal ovaries: Right ovary measures 3.8 x 2.0 x 2.1 cm Left ovary was again not identified on the present study. There is no fluid in the cul-de-sac and adnexal regions. IMPRESSION:: Compared to the prior ultrasound examination of 09/28/2023 there is again noted an intr auterine gestational sac which now contains a visible yolk sac. pole not yet visible There is a small subchorionic hemorrhage. Recommend repeat scan after appropriate clinical interval. DATA REPOSITORY:
== END ==
PROVIDERS: PCP Nurse Practitioner Family; Visit Provider Advanced Practice Midwife
DX: O20.8 Other hemorrhage in early pregnancy (principal); Z3A.01 Less than 8 weeks gestation of pregnancy
CPT/HCPCS: 76801

== ENCOUNTER 2023-10-03 10:39 | Emergency (ER) | payer MEDICAID, SELFPAY ==
[2023-10-03 10:49] VITALS: BP 138/85; PULSE 64; RESP 16; TEMP 36.6; O2SAT 99
[2023-10-03] MEDS: Normal Saline 1,000 ML 1000 ML IV (11:36)
[2023-10-03] MEDS: Ondansetron 4 MG/2 ML VIAL IVP (11:36)
[2023-10-03 11:43] LABS: Abs Immature Grans 0.02 10^3/uL (0.0-0.06); Absolute Basophil Count 0.02 10^3/uL (0.0-0.2); Absolute Eosinophil Count 0.01 10^3/uL (0.0-0.7); Absolute Lymphocyte Count 1.17 10^3/uL (1.2-3.4); Absolute Monocyte Count 0.77 10^3/uL (0.1-0.8); Absolute Neutrophil Count 2.51 10^3/uL (1.2-6.7); Basophils % 0.4; Eosinophils % 0.2; HCT 38.7 % (36.0-46.0); HGB 13.1 g/dL (11.2-15.7); Immature Grans % 0.4; MCH 28.4 pg (27.0-33.0); MCHC 33.9 % (32.0-36.0); MCV 84 fL (80-95); MPV 9.8 fL (8.0-11.0); Monocytes % 17.1; Neutrophils % 55.9; Platelet Count 262 10^3/uL (130-400); RBC 4.62 10^6/uL (3.93-5.22); RDW 13.1 % (11.7-14.6); RDW-SD 39.9 fL
[2023-10-03 12:36] LABS: ALT 25 U/L (14-59); AST 25 U/L (15-37); Albumin 3.7 g/dL (3.4-5.0); Alkaline Phosphatase 52 U/L (46-116); Anion Gap 11.8 mmol/L (3-11); BUN 9 mg/dL (7-18); Bilirubin, Total 0.4 mg/dL (0.2-1.0); CO2 22.2 mmol/L (21.0-32.0); CREATININE 0.8 mg/dL (0.55-1.02); Calcium 8.5 mg/dL (8.5-10.1); Chloride 104 mmol/L (98-107); Glucose 87 mg/dL (74-106); Potassium 3.3 mmol/L (3.5-5.1); Sodium 138 mmol/L (136-145); Total Protein 7.6 g/dL (6.4-8.2)
--- NOTE | 2023-10-03 13:06 | DI.US_ITS ---
Exam(s) US OB 1ST TRIMESTER EXAM: US OB 1ST TRIMESTER CLINICAL HISTORY: vag bleed 1st tri. COMPARISON: US US OB 1ST TRIMESTER from 09/30/2023 TECHNIQUE: Transabdominal Transvaginal first trimester obstetrical ultrasound performed. FINDINGS: There is again seen an intrauterine gestational sac. Based on the gestational sac size, there is an estimated gestational age of 5 weeks 6 days. Estimated date of delivery is 05/29/2024. The rebeca e is not seen at this time. The yolk sac is visualized. The uterus measures 9.9 cm long by 5.6 cm AP x 6.3 cm transverse. The right ovary measures 3.6 x 1.9 x 3.3 cm. The left ovary is again not identified on this examination. IMPRESSION: Single intrauterine gestational sac and yolk sac are visualized at this time. The pole is not definitely visualized right now. A follow-up examination in 1-2 weeks is recommended to document via bility. DATA REPOSITORY:
[2023-10-03] MEDS: Normal Saline 1,000 ML 125 ML IV (13:16)
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
[2023-10-03] MEDS: Potassium Chloride Liquid 20 MEQ PKT PO (15:19)
== END 2023-10-03 15:30 | disposition home or self-care (01) ==
PROVIDERS: Emergency Provider Emergency Medicine; PCP Nurse Practitioner Family
DX: O21.1 Hyperemesis gravidarum with metabolic disturbance (principal); O22.41 Hemorrhoids in pregnancy, first trimester; Z3A.01 Less than 8 weeks gestation of pregnancy
CPT/HCPCS: 80053; 86850; 86900; 86901; 96361; 96374; 99284; 76801; 84702; 85025; J2405

== ENCOUNTER 2023-10-13 14:28 | Outpatient (CLI) | payer MEDICAID, SELFPAY ==
[2023-10-13 14:50] VITALS: BP 114/62; PULSE 55; RESP 16; TEMP 36.5; O2SAT 99
[2023-10-13] MEDS: Normal Saline Flush 10 ML SYR IVP ×2 (15:20→15:41)
[2023-10-13] MEDS: DEXTROSE 5%-LACTATED RINGERS 1,000 ML 999 ML IV (15:22)
[2023-10-13] MEDS: Metoclopramide 10 MG/2 ML VIAL 5 MG IVP (15:42)
[2023-10-13] MEDS: Ondansetron 4 MG/2 ML VIAL 8 MG IVP (16:57)
[2023-10-13] MEDS: Lactated Ringers 1,000 ML 500 ML IV (17:19)
--- NOTE | 2023-10-13 18:16 | PGE_ITS ---
Date of Service Date of service: 10/13/23 Time of Service: 18:16 Assessment and Plan Assessment and plan (1) Dehydration: Status: Acute Assessment and plan: A: 7 wks IUP, hyperemesis, dehydration, ketonuria P: Rehydrate with D5LR until ketones are cleared, followed by LR thiamin 200 mg IVPB Zofran 8 mg IVP (ordered for PO q 8hrs at home) Reglan 5 mg IVP (ordered for PO QID at home) Discharge pt to home when passes PO intake challenge Instructed to call PCP at [facility] and begin appropriate bipolar medication during F/up as scheduled with OB Provider Subjective Subjective Interval history since last seen: Nausea and vomiting for 2+ weeks, nothing staying down, feels tired, week and generally lousy. 7 wks , . Exam Const General: cooperative, no acute distress and other (teary, emotional) Nutritional Appearance: well nourished and overweight Orientation: alert, awake and oriented x3 HENMT Head: normal to inspection Neck Neck: normal visual inspection and full ROM Resp Effort & Inspection: normal respiratory effort and able to speak in complete sentences Cardio Rate: regular rate Rhythm: regular rhythm GI Inspection: normal to inspection Palpation: soft Auscultation: normal bowel sounds General: deferred Skin General skin exam: no rashes or lesions noted and elasticity normal Extrem General: normal to inspection, full ROM, no calf tenderness and normal gait Psych Mood: congruent mood Affect: normal affect Attitude: cooperative Thought Process: normal Other: Pt stopped her bipolar medication due to , reports moodiness and anger control issues. Objective Last Vital Signs Temp 97.7 F 10/13/23 14:50 Pulse 55 L 10/13/23 14:50 Resp 16 10/13/23 14:50 BP 114/62 10/13/23 14:50 Pulse Ox 99 10/13/23 14:50 Reviewed Pertinent PMH: Yes Objective Narrative Objective Narrative: vital signs nml ketonuria with high specific gravity of urine Time Spent with Patient Time Spent with Patient: 25-34 minutes Time was spent: preparing to see the patient(eg.review tests), obtaining and/or reviewing separately otained hiistory, ordering medications,tests, procedures, indepentently interpreting results and counseling the patient
== END 2023-10-13 19:20 | disposition home or self-care (01) ==
LOC: BCD 14:32 → OBS 14:58
PROVIDERS: PCP Nurse Practitioner Family; Visit Provider Advanced Practice Midwife
DX: E86.0 Dehydration (principal); O26.891 Other specified pregnancy related conditions, first trimester
CPT/HCPCS: 96360; 96361; J2405; J2765; J3411

== ENCOUNTER 2023-11-06 04:59 | Outpatient (CLI) | payer MEDICAID, SELFPAY ==
[2023-11-06 10:48] LABS: Abs Immature Grans 0.04 10^3/uL (0.0-0.06); Absolute Basophil Count 0.03 10^3/uL (0.0-0.2); Absolute Eosinophil Count 0.04 10^3/uL (0.0-0.7); Absolute Lymphocyte Count 1.84 10^3/uL (1.2-3.4); Absolute Monocyte Count 0.58 10^3/uL (0.1-0.8); Absolute Neutrophil Count 5.02 10^3/uL (1.2-6.7); Basophils % 0.4 %; Eosinophils % 0.5 %; HCT 39.3 % (36.0-46.0); HGB 13.3 g/dL (11.2-15.7); Immature Grans % 0.5 %; Lymphocytes % 24.4 %; MCH 29.3 pg (27.0-33.0); MCHC 33.8 % (32.0-36.0); MCV 87 fL (80-95); MPV 9.6 fL (8.0-11.0); Monocytes % 7.7 %; Neutrophils % 66.5 %; Platelet Count 277 10^3/uL (130-400); RBC 4.54 10^6/uL (3.93-5.22); RDW 13.4 % (11.7-14.6); RDW-SD 42.2 fL; WBC 7.55 10^3/uL (4.4-10.8)
[2023-11-06 11:01] LABS: Glucose,1 Hr (Glucola) 157 mg/dL (80-140)
[2023-11-06 12:11] LABS: Panorama Kit Sent via Fed Ex
[2023-11-07 09:26] LABS: Hepatitis B Surface Ag Negative (Negative)
[2023-11-07 10:05] LABS: HIV-1/2 Ag & Ab Screen Negative (Negative)
[2023-11-07 10:20] LABS: Hepatitis C Ab w Rflx HCV PCR Negative (Negative)
[2023-11-07 10:40] LABS: Varicella IgG Antibody Positive (See Note)
[2023-11-07 10:48] LABS: Rubella IgG Ab (UVM) Positive (See Note)
[2023-11-08 13:08] LABS: Syphilis IgG w/Reflex Nonreactive (Nonreactive)
== END 2023-11-06 05:00 | disposition home or self-care (01) ==
LOC: LBO 04:59
PROVIDERS: PCP Nurse Practitioner Family; Visit Provider Advanced Practice Midwife
DX: Z34.91 Encounter for supervision of normal pregnancy, unspecified, first trimester (principal); Z3A.10 10 weeks gestation of pregnancy
CPT/HCPCS: 36415; 82950; 86787; 86803; 86850; 86900; 86901; 87340; 87389; 85025; 86762; 86780

== ENCOUNTER 2023-11-06 10:23 | Outpatient (REF) | payer MEDICAID, SELFPAY ==
--- NOTE | 2023-11-06 09:30 | PAPFT_PTH ---
PATIENT: Fabiola Valadez LOC: [facility] U#:[id number] AGE/SX: 23/F ROOM: RE11/06/[address]: Maribel Anderson : 2000 BED: DIS: 11/06/2023 SPEC #: [id number] RECD: 11/06/23 13:27 STATUS: JON REQ #: [id number] FRAN: 11/06/23 09:[address]: Maribel Anderson DEPT: [facility] Cytology RECD BY: Luzmaria Mejia ENTERED: 11/06/23 13:28 SP TYPE: PAPFT OTHR DR: Dalila Rodriguez Tissues: 1 - CX/ENDOCX FOR PAP SMEARS Procedures: PAP THIN PREP/UVM Screening Comments: [id number] (CHLAMYDIA/GC)
[2023-11-06 11:35] LABS: *AMPHETAMINES SCREEN URINE Negative (Negative); *BARBITURATES SCREEN URINE Negative (Negative); *BENZODIAZEPINES SCREEN URINE Negative (Negative); Cannabinoids THC Positive (Negative); Cocaine Screen,Urine Negative (Negative); METHADONE URINE SCREEN Negative (Negative); OPIATES URINE SCREEN Negative (Negative)
[2023-11-06 11:36] LABS: Tricyclic Antidepressants Negative (Negative)
[2023-11-07 11:53] LABS: Fentanyl Scr w/Rfx Confirm Negative ng/mL (<1)
[2023-11-09 10:54] LABS: Chlamydia Result Invalid (Negative); GC Result Invalid (Negative)
[2023-11-12 12:22] LABS: Buprenorphine Negative ng/mL (Cutoff: 5.0); Norbuprenorphine Negative ng/mL (Cutoff: 2.5)
== END 2023-11-06 10:24 | disposition home or self-care (01) ==
LOC: LBN 10:23
PROVIDERS: PCP Nurse Practitioner Family; Visit Provider Advanced Practice Midwife
DX: Z34.91 Encounter for supervision of normal pregnancy, unspecified, first trimester; N89.8 Other specified noninflammatory disorders of vagina; Z3A.10 10 weeks gestation of pregnancy
CPT/HCPCS: 80307; 80348; 87491; 87591; 88142; 87086; 87480; 87510; 87660

== ENCOUNTER 2023-11-13 05:02 | Outpatient (CLI) | payer MEDICAID, SELFPAY ==
[2023-11-13 09:21] LABS: Glucose 1 Hour 106 mg/dL
[2023-11-13 11:05] LABS: Glucose 3 Hour 79 mg/dL
== END 2023-11-13 05:03 | disposition home or self-care (01) ==
LOC: LBO 05:02
PROVIDERS: Advanced Practice Midwife; PCP Nurse Practitioner Family; Visit Provider Advanced Practice Midwife
DX: Z34.91 Encounter for supervision of normal pregnancy, unspecified, first trimester (principal); Z3A.10 10 weeks gestation of pregnancy
CPT/HCPCS: 36415; 82951

== ENCOUNTER 2023-11-23 09:51 | Emergency (ER) | payer MEDICAID, SELFPAY ==
[2023-11-23 09:55] VITALS: BP 119/67; PULSE 86; TEMP 36.1; O2SAT 100
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
[2023-11-23 10:33] LABS: HCT 37.5 % (36.0-46.0); HGB 12.6 g/dL (11.2-15.7); MCH 28.8 pg (27.0-33.0); MCHC 33.6 % (32.0-36.0); MCV 86 fL (80-95); MPV 9.7 fL (8.0-11.0); Platelet Count 244 10^3/uL (130-400); RBC 4.38 10^6/uL (3.93-5.22); RDW 13.2 % (11.7-14.6); RDW-SD 41.1 fL; WBC 6.91 10^3/uL (4.4-10.8)
== END 2023-11-23 10:59 | disposition home or self-care (01) ==
PROVIDERS: Emergency Provider Nurse Practitioner Family; PCP Nurse Practitioner Family
DX: O46.91 Antepartum hemorrhage, unspecified, first trimester (principal); M54.50 Low back pain, unspecified
CPT/HCPCS: 36415; 85027; 86900; 86901; 99283

== ENCOUNTER → 2023-11-28 04:40 | Outpatient (CLI) | payer MEDICAID, SELFPAY ==
--- NOTE | 2023-11-28 06:30 | DI.US_ITS ---
Exam(s) US OB 1ST TRIMESTER EXAM: US OB 1ST TRIMESTER CLINICAL HISTORY: bleeding in second trimester, O26.899, N89.8. TECHNIQUE: Transabdominal obstetrical ultrasound was performed. COMPARISON: US POCUS EXAM from 10/09/2023 FINDINGS: There is a single viable intrauterine gestation with cardiac activity identified-129 bpm. Amniotic fluid: There is a normal amount of amniotic fluid. Placental location: The placenta is fundal grade 1,with no evidence of placenta previa.No evidence of obvious subchorionic hemorrhage ANATOMY: Dating parameters place this at approximately 14 weeks and 2 days gestational age. BPD measures 14 weeks and 3 days HC measures 14 weeks and 3 days AC measures 14 weeks and 1 day FL measures 14 weeks and 0 days Estimated weight is 90 gm-0 pounds 3 ounces Fetus is at the 79th percentile on the Hadlock scale. IMPRESSION:: Single viable intrauterine gestation which is approximately 14 weeks and 2 days gestati onal age, implying an SHELIA of 05/26/2024. The placenta is fundal with no evidence of placenta previa. There is a normal amount of amniotic fluid. DATA REPOSITORY:
== END ==
PROVIDERS: PCP Nurse Practitioner Family; Visit Provider Advanced Practice Midwife
DX: O26.891 Other specified pregnancy related conditions, first trimester (principal); N89.8 Other specified noninflammatory disorders of vagina; Z3A.14 14 weeks gestation of pregnancy
CPT/HCPCS: 76801

== ENCOUNTER 2023-12-04 09:15 | Outpatient (REF) | payer MEDICAID, SELFPAY ==
[2023-12-05 15:48] LABS: Chlamydia Result Negative (Negative); GC Result Negative (Negative)
== END 2023-12-04 09:16 | disposition home or self-care (01) ==
LOC: LBN 09:15
PROVIDERS: PCP Nurse Practitioner Family; Visit Provider Advanced Practice Midwife
DX: Z34.92 Encounter for supervision of normal pregnancy, unspecified, second trimester (principal); Z11.3 Encounter for screening for infections with a predominantly sexual mode of transmission; Z3A.14 14 weeks gestation of pregnancy
CPT/HCPCS: 87491; 87591

== ENCOUNTER 2024-03-06 01:05 | Outpatient (CLI) | payer MEDICAID, SELFPAY ==
[2024-03-06 14:02] LABS: HCT 34.4 % (36.0-46.0); HGB 11.2 g/dL (11.2-15.7); MCH 27.7 pg (27.0-33.0); MCHC 32.6 % (32.0-36.0); MCV 85 fL (80-95); MPV 9.4 fL (8.0-11.0); Platelet Count 284 10^3/uL (130-400); RBC 4.04 10^6/uL (3.93-5.22); RDW 12.5 % (11.7-14.6); RDW-SD 38.5 fL; WBC 11.19 10^3/uL (4.4-10.8)
[2024-03-06 14:12] LABS: Glucose,1 Hr (Glucola) 140 mg/dL (80-140)
== END 2024-03-06 01:06 | disposition home or self-care (01) ==
LOC: LBO 01:15
PROVIDERS: PCP Nurse Practitioner Family; Visit Provider Advanced Practice Midwife
DX: Z34.92 Encounter for supervision of normal pregnancy, unspecified, second trimester (principal)
CPT/HCPCS: 36415; 82950; 85027

== ENCOUNTER 2024-03-06 12:56 | Outpatient (REF) | payer MEDICAID, SELFPAY ==
[2024-03-06 14:22] LABS: *AMPHETAMINES SCREEN URINE Negative (Negative); *BARBITURATES SCREEN URINE Negative (Negative); *BENZODIAZEPINES SCREEN URINE Negative (Negative); Cannabinoids THC Positive (Negative); Cocaine Screen,Urine Negative (Negative); METHADONE URINE SCREEN Negative (Negative); OPIATES URINE SCREEN Negative (Negative)
[2024-03-06 14:25] LABS: Tricyclic Antidepressants Negative (Negative)
[2024-03-09 11:21] LABS: Fentanyl Scr w/Rfx Confirm Negative ng/mL (<1)
[2024-03-11 13:23] LABS: Buprenorphine Negative ng/mL (Cutoff: 5.0); Norbuprenorphine Negative ng/mL (Cutoff: 2.5)
== END 2024-03-06 12:57 | disposition home or self-care (01) ==
LOC: LBN 12:56
PROVIDERS: PCP Nurse Practitioner Family; Visit Provider Advanced Practice Midwife
DX: Z34.92 Encounter for supervision of normal pregnancy, unspecified, second trimester (principal)
CPT/HCPCS: 80307; 80348

== ENCOUNTER 2024-04-01 00:52 | Outpatient (CLI) | payer MEDICAID, SELFPAY ==
--- NOTE | 2024-04-01 07:30 | DI.US_ITS ---
Exam(s) US OB MARIA DOLORES WEIGHT EXAM: US OB MARIA DOLORES WEIGHT CLINICAL HISTORY: MARIA DOLORES/weight,MARGINAL INSERTION UMBILICAL CORD,o43.199. TECHNIQUE: Transabdominal obstetrical ultrasound performed. COMPARISON: US US OB 1ST TRIMESTER from 11/28/2023 FINDINGS:: Number of fetuses: 1 position: Cephalic Placental location: Posterior, grade 1-2. no evidence of previa. Cord insertion measured 1.8 - 2.1 c m from edge of placenta BIOMETRIC DATA: BPD: 82, 33+1 HC: 303, 33+5 AC: 286, 32+4 FL: 62 , 32+ 0 EFW: 2007 =81 percentile , Composite Age: 32+ 6 weeks SHELIA: 21 May 2024 Heart Rate: 148 Amniotic fluid index: 14.8. Visually, amount of fluid is within normal limits. IMPRESSION: size and weight are within the expected range. Cord insertion measured between 1.82.1 cm from edge of placenta. DATA REPOSITORY:
== END 2024-04-01 01:12 ==
LOC: DI 00:52
PROVIDERS: PCP Nurse Practitioner Family; Visit Provider Advanced Practice Midwife
DX: O43.193 Other malformation of placenta, third trimester (principal); Z3A.27 27 weeks gestation of pregnancy
CPT/HCPCS: 76816

== ENCOUNTER 2024-04-30 11:03 | Outpatient (CLI) | payer MEDICAID, SELFPAY ==
[2024-04-30] MEDS: Normal Saline Flush 10 ML SYR IVP (11:32)
[2024-04-30] MEDS: IRON SUCROSE COMPLEX 200 MG in Normal Saline 100 ML 400 MG IVPB (11:32)
== END 2024-04-30 11:55 ==
LOC: BCD 11:03
PROVIDERS: PCP Nurse Practitioner Family; Visit Provider Advanced Practice Midwife
DX: O99.013 Anemia complicating pregnancy, third trimester (principal); Z3A.35 35 weeks gestation of pregnancy
CPT/HCPCS: 96365; J1756

== ENCOUNTER 2024-05-04 14:36 | Outpatient (CLI) | payer MEDICAID, SELFPAY ==
[2024-05-04 15:45] VITALS: BP 123/59; PULSE 75; TEMP 36.8
[2024-05-04 15:49] VITALS: BP 123/59; PULSE 75
[2024-05-04 16:33] LABS: Abs Immature Grans 0.23 10^3/uL (0.0-0.06); Absolute Basophil Count 0.05 10^3/uL (0.0-0.2); Absolute Eosinophil Count 0.14 10^3/uL (0.0-0.7); Absolute Lymphocyte Count 2.31 10^3/uL (1.2-3.4); Absolute Monocyte Count 1.07 10^3/uL (0.1-0.8); Absolute Neutrophil Count 6.81 10^3/uL (1.2-6.7); Basophils % 0.5 %; Eosinophils % 1.3 %; HCT 34.7 % (36.0-46.0); HGB 11.2 g/dL (11.2-15.7); Immature Grans % 2.2 %; Lymphocytes % 21.8 %; MCH 26.2 pg (27.0-33.0); MCHC 32.3 % (32.0-36.0); MCV 81 fL (80-95); MPV 9.7 fL (8.0-11.0); Monocytes % 10.1 %; Neutrophils % 64.1 %; Platelet Count 266 10^3/uL (130-400); RBC 4.27 10^6/uL (3.93-5.22); RDW 14.1 % (11.7-14.6); RDW-SD 39.7 fL; WBC 10.61 10^3/uL (4.4-10.8)
[2024-05-04 16:45] VITALS: BP 123/59; PULSE 75; TEMP 36.8
[2024-05-04] MEDS: Ondansetron O.D.T. 4 MG TABEF 8 MG PO (17:08)
--- NOTE | 2024-05-04 19:07 | PDOC.NST_ITS ---
Date of service: 05/04/24 Time of Service: 19:07 NST Evaluation Reason for NST Reasons for Nonstress Test: OTHER, SEE COMMENT Reason for NST Other: Rule out labor Gestational Age Gestational Age in Weeks and Days: 36 Weeks and 0Days Test and Monitor Explained Test/Monitor Explained: Test Explained Vital Signs Blood Pressure: 123/59 Pulse: 75 Temperature: 98.2 F NST Information Date on Monitor: 05/04/24 Time on Monitor: 15:45 Date off Monitor: 05/04/24 Time off Monitor: 17:04 Total Time on Monitor: 79 NST Interventions: None NST Evaluation Patient States Movement: Present FHR Baseline: 140 Variability: Moderate 6-25 bpm Accelerations: 15x15 Decelerations: None NST Results: Reactive Note Ultrasound Done: N/A. NST Note Note: Fabiola has been feeling nauseated all day and vomited a few times. She took ondansetron this morning but has not repeated it. She as also been experiencing cramping. No contractions or evidence of labor. ondansetron 8 mg ODT provided and adequate fluid intake recommended. She was feeling better and returned home with instructions to return with persistent symptoms and follow up with visit at [facility] in 3 days. NST Reviewed and Verified by: Maribel Anderson
[2024-05-04 19:11] VITALS: BP 123/59; PULSE 75; TEMP 36.8
== END 2024-05-04 17:19 | disposition home health service (06) ==
LOC: BCD 14:39 → OBS 15:07
PROVIDERS: PCP Nurse Practitioner Family; Visit Provider Advanced Practice Midwife
DX: O47.03 False labor before 37 completed weeks of gestation, third trimester (principal); Z3A.36 36 weeks gestation of pregnancy
CPT/HCPCS: 59025; 85025

== ENCOUNTER 2024-05-07 10:44 | Outpatient (REF) | payer MEDICAID, SELFPAY | END 2024-05-07 10:45 | disposition home or self-care (01) | LOC: LBN 10:44 | PROVIDERS: PCP Nurse Practitioner Family; Visit Provider Advanced Practice Midwife | DX: Z34.93 Encounter for supervision of normal pregnancy, unspecified, third trimester (principal); Z3A.36 36 weeks gestation of pregnancy | CPT/HCPCS: 87081 ==

== ENCOUNTER 2024-06-01 08:18 | Outpatient (CLI) | payer MEDICAID, SELFPAY ==
[2024-06-01 08:44] VITALS: BP 117/67; PULSE 68
[2024-06-01] MEDS: Acetaminophen 500 MG TAB 1000 MG PO (09:33)
[2024-06-01 09:35] VITALS: BP 117/67; PULSE 68; TEMP 36.6
--- NOTE | 2024-06-01 09:48 | W.OBNST ---
Date of service: 06/01/24 Time of Service: 09:48 NST Evaluation Reason for NST Reasons for Nonstress Test: FALSE LABOR Gestational Age Gestational Age in Weeks and Days: 40 Weeks and 0Days Test and Monitor Explained Test/Monitor Explained: Test Explained, Monitor Explained and Patient Verbalized Understanding Vital Signs Blood Pressure: 117/67 Pulse: 68 Temperature: 97.9 F NST Information Date on Monitor: 06/01/24 Time on Monitor: 08:42 Date off Monitor: 06/01/24 Time off Monitor: 09:30 Total Time on Monitor: 48 NST Interventions: PO Hydration, Reposition Patient and Notify Provider Contraction Frequency: Occasional NST Evaluation Patient States Movement: Present FHR Baseline: 140 Variability: Moderate 6-25 bpm Accelerations: 15x15 Decelerations: None NST Results: Reactive Note Ultrasound Done: N/A. NST Note Note: Not in labor, NST reactive, bladder well emptied per bladder scanner, awaiting UA for r/o UTI Given tylenol for back pain and an abd binder for support. Plan to keep next appt later this week. NST Reviewed and Verified by: Grace Cook
[2024-06-01 09:49] VITALS: BP 117/67; PULSE 68; TEMP 36.6
[2024-06-01 11:09] LABS: Bilirubin Negative (Negative); Blood Negative (Negative); Clarity Clear (Clear); Glucose Negative (Negative); Ketones Negative (Negative); Leukocyte Esterase Negative (Negative); Nitrite Negative (Negative); Urobilinogen 0.2 mg/dL (Up to 0.2)
[2024-06-04 19:15] VITALS: BP 117/67; PULSE 68; TEMP 36.6
--- NOTE | 2024-06-04 19:15 | W.OBNST ---
Date of service: 06/01/24 Time of Service: 10:00 NST Evaluation Reason for NST Reasons for Nonstress Test: FALSE LABOR Gestational Age Gestational Age in Weeks and Days: 40 Weeks and 0Days Test and Monitor Explained Test/Monitor Explained: Test Explained, Monitor Explained and Patient Verbalized Understanding Vital Signs Blood Pressure: 117/67 Pulse: 68 Temperature: 97.9 F Urine Results Urine Protein: Negative Urine Ketones: Negative Urine Glucose: Negative Urine Blood: Negative NST Information Date on Monitor: 06/01/24 Time on Monitor: 08:42 Date off Monitor: 06/01/24 Time off Monitor: 09:30 Total Time on Monitor: 48 NST Interventions: PO Hydration, Reposition Patient and Notify Provider Contraction Frequency: Occasional NST Evaluation Patient States Movement: Present FHR Baseline: 140 Variability: Moderate 6-25 bpm Accelerations: 15x15 Decelerations: None NST Results: Reactive Note Ultrasound Done: N/A. NST Note NST Reviewed and Verified by: Grace Cook
== END 2024-06-01 10:25 ==
LOC: BCD 08:20 → OBS 08:28
PROVIDERS: PCP Nurse Practitioner Family; Visit Provider Advanced Practice Midwife
DX: O47.1 False labor at or after 37 completed weeks of gestation (principal); Z3A.40 40 weeks gestation of pregnancy
CPT/HCPCS: 59025; 81003

== ENCOUNTER 2024-06-08 10:05 | Inpatient (IN) | payer MEDICAID, SELFPAY ==
[2024-06-08] VITALS (23 sets, daily range): BP systolic 99–152; BP diastolic 53–69; PULSE 56–125; RESP 18; TEMP 35.2–36.7
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
[2024-06-08 10:36] LABS: HCT 35.1 % (36.0-46.0); HGB 11.3 g/dL (11.2-15.7); MCH 25.9 pg (27.0-33.0); MCHC 32.2 % (32.0-36.0); MCV 81 fL (80-95); Platelet Count 257 10^3/uL (130-400); RBC 4.36 10^6/uL (3.93-5.22); RDW 15.1 % (11.7-14.6); RDW-SD 43.8 fL; WBC 8.25 10^3/uL (4.4-10.8)
[2024-06-08] MEDS: miSOPROStol 25 MCG TAB VG (10:56)
--- NOTE | 2024-06-08 13:41 | W.PM.OBNL1 ---
Date of service: 06/08/24 Time of Service: 13:41 Informed Consent Informed Consent: Induction of Labor Pelvic Exam Dilation: 4 Effacement (%): 90 station: 0 Cervix Position: mid Consistency: soft Contractions Monitor Mode: Palpation Contraction Frequency(min): every 2-3 Contraction Duration(sec): 60 Intensity: Moderate/Strong Fetus A Monitor: External (US) Heart Rate Baseline: 130 Variability: Moderate (6-25 BPM) Categories: Category I FHR Rhythm: Regular Accelerations: 15 X 15 Decelerations: None Amniotic Membrane Status: Intact Assessment and Plan Assessment and plan (1) Encounter for induction of labor: Status: Acute Assessment and plan: confort measures. Anticipate Objective Abnormal lab results 06/08/24 Range/Units 10:27 Hct 35.1 L (36.0-46.0) % MCH 25.9 L (27.0-33.0) pg RDW 15.1 H (11.7-14.6) % Temp Pulse Resp BP 95.9 F L 82 18 112/58 L 06/08/24 12:59 06/08/24 13:00 06/08/24 12:59 06/08/24 13:00 Laboratory Results WBC 8.25 10^3/uL (4.4-10.8) 06/08/24 10:27 RBC 4.36 10^6/uL (3.93-5.22) 06/08/24 10:27 Hgb 11.3 g/dL (11.2-15.7) 06/08/24 10:27 Hct 35.1 % (36.0-46.0) L 06/08/24 10:27 MCV 81 fL (80-95) 06/08/24 10:27 MCH 25.9 pg (27.0-33.0) L 06/08/24 10:27 MCHC 32.2 % (32.0-36.0) 06/08/24 10:27 RDW 15.1 % (11.7-14.6) H 06/08/24 10:27 Plt Count 257 10^3/uL (130-400) 06/08/24 10:27 MPV 10.0 fL (8.0-11.0) 06/08/24 10:27 ABO/Rh A Positive 06/08/24 10:27 Antibody Screen NEGATIVE 06/08/24 10:27 Subjective Patient Reports: No new Complaints Interval history since last seen: stronger contractions. Breathing through them and using nitrous oxide Results Hemoglobin/Hematocrit: Hgb 11.3 g/dL (11.2-15.7) 06/08/24 10:27 Hct 35.1 % (36.0-46.0) L 06/08/24 10:27 Abnormal Lab Findings: Abnormal Labs 06/08/24 10:27 Hct 35.1 L MCH 25.9 L RDW 15.1 H
[2024-06-08 14:31] LABS: *AMPHETAMINES SCREEN URINE Negative (Negative); *BARBITURATES SCREEN URINE Negative (Negative); *BENZODIAZEPINES SCREEN URINE Negative (Negative); Cannabinoids THC Positive (Negative); Cocaine Screen,Urine Negative (Negative); METHADONE URINE SCREEN Negative (Negative); OPIATES URINE SCREEN Negative (Negative); Tricyclic Antidepressants Negative (Negative)
[2024-06-08] MEDS: Oxytocin 10 UNITS/ML VIAL IM (14:52)
[2024-06-08] MEDS: Acetaminophen 325 MG TAB 650 MG PO ×2 (16:10→20:38)
[2024-06-08] MEDS: Hamamelis Leaf/Glycerin 100 EACH BOX PR (16:10)
[2024-06-08] MEDS: Dibucaine 1% 28 GM TUBE TP (16:10)
[2024-06-08] MEDS: Ibuprofen 600 MG TAB PO (16:11)
[2024-06-09 06:30] VITALS: BP 109/63; PULSE 74; TEMP 36.8
--- NOTE | 2024-06-09 08:50 | OBVDS_ITS ---
Date of service: 06/09/24 Time of Service: 08:50 OB Labor/ Delivery Information Baby A Delivery Delivery Method: Spontaneaous Presentation: Cephalic Cephalic Position: Vertex Vertex Position: Left Occipital Anterior Cord Description-Baby A: 3 Vessels Amniotic Fluid: Meconium Estimated Blood Loss: 200 Infant Transferred: Remains with Mother Note: Fabiola felt an urge to push and was 8 cms dilated. AROM performed for mod meconium stained fluid. FHTs 130s during first stage of labor. FHTs 130s in second stage. She progressed to full dilation and began pushing. Second stage huddle was done. Spontaneous delivery of delivered in RIANA position. Baby was placed on mother's abdomen and dried and stimulated. Spontaneous cry. Cord was clamped and cut by Fabiola's friend. The placenta delivered spontaneously and appears to by intact with a three vessel cord. Pitocin 10 units was administered before delivery of the placenta. The perineum was inspected and it is intact. The baby did breastfeed. After delivery, Mother and baby and father of the baby were stable and bonding well in the delivery room and there were no complications. Providers Nurse Head Of Research & Insights: Maribel Anderson Nurse: Rolan Lopez Nurse: Lucía Christopher Labor/Delivery Information Number of Babies in Womb: 1 Steroids Given: None Reason Steroids Not Administered: N/A Group Beta Strep: Negative Antibiotics Administered: No Rubella Status: Immune Blood Type: A+ Varicella Immunity: Immune Born En Route: No Maternal Complications: None Shoulder Dystocia: No Stages of Labor Onset of Labor Date: 06/08/24 Onset of Labor Time: 13:25 Complete Dilatation Date: 06/08/24 Complete Dilatation Time: 14:34 Labor - Stage 1 Duration: 1 hours and 9 minutes ROM Baby A: 06/08/24 ROM Baby A: 14:22 ROM Total Time- Baby A: [id number] Delivery Date-Baby A: 06/08/24 Infant Delivery Time-Baby A: 14:34 Labor Stage 2 Duration: 0 minutes Placenta Delivery Date-Baby A: 06/08/24 Placenta Delivery Time-Baby A: 14:44 Labor-Stage 3 Duration: 10 minutes Total Length of Labor-Baby A: 1 hours and 9 minutes Placenta Cultured: No Placenta Status: Delivered Baby A Gender: Male Gestational Status: Term (39-41.6 wks) Gestational Age in Weeks/Days: 41 Weeks and 0 Days weight: 8 lb 12.39 oz Length-Baby A: 20 in Head Circumference-Baby A: 14.5 in Score-1 Minute Interval(Baby A) Heart Rate-1 minute: 100 BPM or Greater Respiratory Effort- 1 minute: Spontaneous/Strong Cry Muscle Tone-1 minute: Active Movement Reflex Response-1 minute: Prompt Response Color-1 minute: Bluish Hands or Feet Total Score-1 minute: 9 Score-5 Minute Interval(Baby A) Heart Rate- 5 minute: 100 BPM or Greater Respiratory Effort-5 minute: Spontaneous/Strong Cry Muscle Tone-5 minute: Active Movement Reflex Response-5 minute: Prompt Response Color-5 minute: Bluish Hands or Feet Total Score- 5 minute: 9
[2024-06-09 09:00] VITALS: BP 99/73; PULSE 68; RESP 18; TEMP 36.6; O2SAT 97
[2024-06-09] MEDS: Acetaminophen 325 MG TAB 650 MG PO (09:00)
[2024-06-09] MEDS: Ibuprofen 600 MG TAB PO (09:00)
[2024-06-09 12:18] LABS: Fentanyl Scr w/Rfx Confirm Negative ng/mL (<1)
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
[2024-06-12 06:18] LABS: Buprenorphine Negative ng/mL (Cutoff: 5.0); Norbuprenorphine Negative ng/mL (Cutoff: 2.5)
== END 2024-06-09 18:00 | disposition home or self-care (01) | DRG 806 ==
PROVIDERS: Admitting Provider Advanced Practice Midwife; PCP Nurse Practitioner Family; Visit Provider Advanced Practice Midwife
DX: O48.0 Post-term pregnancy (principal); O22.43 Hemorrhoids in pregnancy, third trimester; Z37.0 Single live birth; O99.324 Drug use complicating childbirth; O99.354 Diseases of the nervous system complicating childbirth; O77.0 Labor and delivery complicated by meconium in amniotic fluid; Z3A.41 41 weeks gestation of pregnancy; O99.344 Other mental disorders complicating childbirth; O99.52 Diseases of the respiratory system complicating childbirth; F12.90 Cannabis use, unspecified, uncomplicated; F31.9 Bipolar disorder, unspecified; M54.9 Dorsalgia, unspecified; M94.0 Chondrocostal junction syndrome [Tietze]; K42.9 Umbilical hernia without obstruction or gangrene; R04.0 Epistaxis; J34.2 Deviated nasal septum; O75.89 Other specified complications of labor and delivery
CPT/HCPCS: 36415; 80307; 80348; 85027; 86850; 86900; 86901; 59200; J2590; J3490

== ENCOUNTER 2024-08-24 10:05 | Outpatient (REF) | payer MEDICAID, SELFPAY ==
[2024-08-25 11:36] LABS: Chlamydia Result Negative (Negative); GC Result Negative (Negative)
== END 2024-08-24 10:06 | disposition home or self-care (01) ==
LOC: LBN 10:05
PROVIDERS: PCP Nurse Practitioner Family; Visit Provider Obstetrics & Gynecology
DX: Z70.8 Other sex counseling (principal); Z11.3 Encounter for screening for infections with a predominantly sexual mode of transmission; Z30.2 Encounter for sterilization
CPT/HCPCS: 87491; 87591

== ENCOUNTER 2024-08-24 11:24 | Outpatient (CLI) | payer MEDICAID, SELFPAY ==
[2024-08-24 10:08] LABS: HCT 42.1 % (36.0-46.0); HGB 13.4 g/dL (11.2-15.7); MCH 26.7 pg (27.0-33.0); MCHC 31.8 % (32.0-36.0); MCV 84 fL (80-95); MPV 9.8 fL (8.0-11.0); Platelet Count 292 10^3/uL (130-400); RBC 5.02 10^6/uL (3.93-5.22); RDW 14.9 % (11.7-14.6); RDW-SD 45.7 fL; WBC 7.39 10^3/uL (4.4-10.8)
[2024-08-25 10:16] LABS: HBs Antibody, Qual Negative (See Note); HBs Antibody, Quant <3.1 mIU/mL (See Note); Hepatitis B Core Antibody Negative (Negative); Hepatitis B surface Ag Negative (Negative); Hepatitis C Ab w Rflx HCV PCR Negative (Negative)
[2024-08-25 10:52] LABS: HIV-1/2 Ag & Ab Screen Negative (Negative)
[2024-08-25 10:56] LABS: Syphilis Serology (RPR) Negative (Negative)
== END 2024-08-24 11:25 | disposition home or self-care (01) ==
LOC: LBO 11:25
PROVIDERS: PCP Nurse Practitioner Family; Visit Provider Obstetrics & Gynecology
DX: Z11.3 Encounter for screening for infections with a predominantly sexual mode of transmission (principal); Z30.2 Encounter for sterilization
CPT/HCPCS: 36415; 85027; 86704; 86706; 86803; 87340; 87389; 86592

== ENCOUNTER 2024-08-26 06:07 | Day surgery (SDC) | payer MEDICAID, SELFPAY ==
[2024-08-26] VITALS (28 sets, daily range): BP systolic 96–126; BP diastolic 45–79; PULSE 41–89; RESP 14–30; TEMP 36.1–36.6; O2SAT 87–100; BMI 32.1
[2024-08-26] MEDS: Lactated Ringers 1,000 ML 125 ML IV (06:45)
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
[2024-08-26] MEDS: Bupivacaine 0.25% Pres-Free 30 ML VIAL (08:15)
--- NOTE | 2024-08-26 08:33 | FALL_PTH ---
PATIENT: Fabiola Valadez LOC: [facility] U#:[id number] AGE/SX: 24/F ROOM: RE08/26/[address]: Lola Odom MD : [id number] BED: DIS: 08/26/2024 SPEC #: [id number] RECD: 08/26/24 12:37 STATUS: JON REQ #: [id number] FRAN: 08/26/24 08:[address]: Lola Odom DEPT: Surgical Specimen RECD BY: Luzmaria Mejia ENTERED: 08/26/24 12:37 SP TYPE: Fall OTHR DR: Dalila Rodriguez Tissues: 1 - FALLOPIAN TUBE (STERILIZATION) 2 - FALLOPIAN TUBE (STERILIZATION) Procedures: GROSS AND MICRO LEVEL 2 Comments: [id number]
[2024-08-26] MEDS: Midazolam 2 MG/2 ML VIAL IVP (09:04)
--- NOTE | 2024-08-26 09:11 | PDOC.DSDIS_ITS ---
Date of service: 08/26/24 Discharge Plan Disposition Patient Disposition: Home Discharge Details Attending Provider: Lola Odom Primary Care Provider: Dalila Rodriguez Home Meds and New Rx's Prescriptions: No Action albuterol sulfate [ProAir HFA] 90 mcg/actuation HFA aerosol inhaler 1 inh IH ONCE PRN Patient Comments: Have not taken in weeks 03/04/23 CT Zyrtec 10 mg capsule 10 mg PO DAILY PRN (Reason: allergy symptoms) Qty: 30 6RF sertraline 50 mg tablet 150 mg PO DAILY hydroxyzine HCl 25 mg tablet 50 mg PO BID PRN Vraylar 1.5 mg capsule 3 mg PO DAILY Discharge Instructions Stand Alone Forms: Anesthesia Discharge Inst., DSU Post Severity Of Illness Coordinator SurgeryW/Incision Referrals: Lola Odom MD [ [facility] STAFF PHYSICIAN] - 09/10/24 1:40 pm Activity:: No lifting >20lbs Remove Dressings/Wound Care:: 24 hours Shower/Bathe:: 24 hours Diet:: As Tolerated Discharge Orders Discharge Orders: Discharge Order (Routine); Ordered 08/26/24 Ordered By: Lola Odom
--- NOTE | 2024-08-26 09:13 | W.PM.OP ---
Operative Note Operative Note PRE-OP DIAGNOSIS: Desires permanent sterilization POST-OP DIAGNOSIS: same PROCEDURE: Laparoscopic bilateral salpingectomy SURGEON: Lola Odom ASSISTING SURGEON: Irma Eng Refer to Anesthesia Record ESTIMATED BLOOD LOSS: 20 PATHOLOGY: other (bilateral tubes) COMPLICATIONS: None Patient was transported to: same day Patient's condition: stable Indications: Desires permanent sterilization. Declines LARC Findings: Small left paratubal cyst. Normal appearing external genitalia, vagina and cervix. Normal appearing uterus, ovaries and tubes. No obvious abnormalities of the lower abdomen and pelvis. Procedure Description: After informed consent was signed the patient was taken to the operating room and given general anesthesia.? SCDs were placed on her legs.? She was prepped and draped in the dorsal lithotomy position in the [facility].? Her bladder was drained of urine prior to arrival in the OR. A speculum was placed into the vagina to expose the cervix and a hulka manipulator was placed into the cervix. The speculum was removed. Gloves were changed and attention was turned to the abdomen. The infraumbilical fold was grasped and injected with 0.25% marcaine with epinephrine. A 5mm incision was made in the infraumbilical fold with the scalpel. An attempt was made to enter the peritoneum with the visiport but was unsuccessful so a hemostat was used to bluntly dissect the subcuticular layers. The fascia was grasped with nohelia clamps and incised. The incision was extended with blunt pressure. The peritoneum was grasped and incised with metzembaum scissors. The visiport was used to enter the abdomen under direct visualization. Once entrance to the abdominal cavity was confirmed the CO2 was turned on and the abdomen was insufflated. Two lateral 5mm ports were then placed under direct visualization. The right tube was identified and followed to the fimbriated end. The tube was grasped and elevated and the mesosalpinx was clamped, cauterized and cut with the ligasure device. The was continued along the length of the tube. The proximal end of the tube was then transected with the ligasure. Good hemostasis was noted. The left tube was then identified and followed to the fimbriated end. The tube was grasped and elevated and the mesosalpinx was clamped, cauterized and cut with the ligasure device. The was continued along the length of the tube. The proximal end of the tube was then transected with the ligasure. Good hemostasis was noted on both sides. The tubes were removed individually through the ports and noted to be intact. The ports were removed. The gas was released from the abdomen. The skin incisions were then closed with 4-0 vicryl. Mastisol and steristrips were placed. A pressure dressing was placed over the umbilical incision due to a small amount of bleeding. The manipulator was removed. The patient was placed back into the supine position.? She was moved to the stretcher and taken to the recovery room in stable condition. Date of Procedure: 08/26/24
--- NOTE | 2024-08-26 10:52 | W.ANESPOSTOP ---
Postoperative Evaluation Date, Time and Location Date Performed: 08/26/24 Time Performed: 10:52 Patient Location: Day Surgery Unit Vital Signs Most Recent Imported Vital Signs: Most Recent Vital Signs Temp Pulse Resp BP Pulse Ox 36.4 C L 41 L 20 108/72 97 08/26/24 10:30 08/26/24 10:30 08/26/24 10:30 08/26/24 10:30 08/26/24 10:30 Pain Score Most Recent Pain Score: Most Recent Pain Score Pain Level 5 08/26/24 10:30 Assessment Mental Status: Awake (Alert & Oriented to Patient Baseline) Airway and Respiratory Function: Patent airway with normal (patient baseline) respiratory exam Cardiovascular Function: Hemodynamically Stable Hydration Status: Adequately Hydrated Nausea & Vomiting: No Nausea or Vomiting Pain: Pain is tolerable per patient Peripheral Nerve Block: Patient did not receive a nerve block
== END 2024-08-26 11:16 | disposition home or self-care (01) ==
PROVIDERS: PCP Nurse Practitioner Family; Visit Provider Obstetrics & Gynecology
PROC: (CPT 58661; principal; 2024-08-26 07:30)
DX: Z30.2 Encounter for sterilization (principal); N83.8 Other noninflammatory disorders of ovary, fallopian tube and broad ligament
CPT/HCPCS: 58661; 88302; J0131; J0665; J1885; J2003; J2250; J2704; J3010

== ENCOUNTER 2024-10-10 16:18 | Outpatient (REF) | payer MEDICAID, SELFPAY ==
[2024-10-10 16:17] LABS: Bilirubin Negative (Negative); Blood Negative (Negative); Clarity Clear (Clear); Glucose Negative (Negative); Ketones Negative (Negative); Leukocyte Esterase Negative (Negative); Nitrite Negative (Negative); Urobilinogen 0.2 mg/dL (Up to 0.2)
[2024-10-12 12:51] LABS: Chlamydia Result Negative (Negative); GC Result Negative (Negative)
== END 2024-10-10 16:19 | disposition home or self-care (01) ==
LOC: LBN 16:18
PROVIDERS: PCP Nurse Practitioner Family; Visit Provider Physician Assistant
DX: R30.0 Dysuria (principal); N39.0 Urinary tract infection, site not specified
CPT/HCPCS: 87491; 87591; 81003; 87480; 87510; 87660

== ENCOUNTER 2025-01-14 11:59 | Outpatient (REF) | payer MEDICAID, SELFPAY | END 2025-01-14 12:00 | disposition home or self-care (01) | LOC: LBN 11:59 | PROVIDERS: PCP Nurse Practitioner Family; Visit Provider Obstetrics & Gynecology | DX: N89.8 Other specified noninflammatory disorders of vagina (principal) | CPT/HCPCS: 87480; 87510; 87660 ==

== ENCOUNTER 2025-03-29 10:29 | Outpatient (CLI) | payer MEDICAID, SELFPAY ==
--- NOTE | 2025-03-29 10:15 | DI.RAD_ITS ---
Exam(s) XR FOOT LT COMPLETE EXAM: XR FOOT LT COMPLETE CLINICAL HISTORY: left foot pain, metatarsal pain S99.922A INJURY LEFT FOOT. TECHNIQUE: 2D digital imaging was performed of the left foot. Three images were obtained. AP, oblique and lateral views were obtained. COMPARISON: No exams were available for comparison FINDINGS: BONES: No acute fracture is present. No bony destructive lesion is seen. JOINTS: No dislocation present. SOFT TISSUE: Normal. IMPRESSION: Unremarkable radiographs of the left foot. DATA REPOSITORY: RADIATION DOSE DELIVERED:
== END 2025-03-29 10:49 ==
LOC: DI 10:31
PROVIDERS: PCP Nurse Practitioner Family; Visit Provider Physician Assistant
DX: S99.922A Unspecified injury of left foot, initial encounter (principal); X58.XXXA Exposure to other specified factors, initial encounter
CPT/HCPCS: 73630

== ENCOUNTER 2025-04-20 09:00 | Day surgery (SDC) | payer MEDICAID, SELFPAY ==
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
--- NOTE | 2025-04-20 07:21 | W.PM.DSUDISC ---
Date of service: 04/20/25 Discharge Plan Disposition Patient Disposition: Home Condition: Good Discharge Details Reason For Visit: Right carpal tunnel syndrome Attending Provider: Rai Regalado Primary Care Provider: Dalila Rodriguez Home Meds and New Rx's Prescriptions: New hydrocodone-acetaminophen 5-325 mg tablet 1 tab PO Q6H PRN (Reason: severe pain) Qty: 4 0RF Rx Instructions: Take one tablet up to every 6 hours as needed for severe postoperative pain acetaminophen 500 mg tablet 500 mg PO Q6H PRN (Reason: pain) Qty: 60 2RF ibuprofen 600 mg tablet 600 mg PO TID PRN (Reason: pain) Qty: 60 0RF Continued albuterol sulfate [ProAir HFA] 90 mcg/actuation HFA aerosol inhaler 1 inh IH ONCE PRN Patient Comments: Have not taken in weeks 03/04/23 CT Zyrtec 10 mg capsule 10 mg PO DAILY PRN (Reason: allergy symptoms) Qty: 30 6RF hydroxyzine HCl 25 mg tablet 50 mg PO BID PRN clonidine HCl 0.1 mg tablet 0.1 mg PO QHS olanzapine 2.5 mg tablet 2.5 mg PO DAILY lurasidone [Latuda] 60 mg tablet 60 mg PO DAILY Rx Instructions: must administer with food (at least 350 calories) Discharge Instructions Stand Alone Forms: Fabricio Barber Tunnel Release Activity:: Elevate Remove Dressings/Wound Care:: 48 hours Shower/Bathe:: 48 hours Diet:: As Tolerated Discharge Orders Discharge Orders: Discharge Order (Routine); Ordered 04/20/25 Ordered By: Cailin Arce
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
[2025-04-20 09:30] VITALS: BP 103/64; PULSE 64; RESP 16; TEMP 36.3; O2SAT 100
[2025-04-20] MEDS: Acetaminophen 500 MG TAB 1000 MG PO (09:37)
[2025-04-20] MEDS: Celecoxib 200 MG CAP 400 MG PO (09:38)
[2025-04-20] MEDS: Lactated Ringers 1,000 ML 80 ML IV (09:48)
[2025-04-20 10:07] VITALS: BMI 32.6
[2025-04-20] MEDS: ceFAZolin 2 GM/50 ML BAG IVPB (10:23)
[2025-04-20] MEDS: Lidocaine 1% Pres-Free W/EPI 1/200,000 10 ML VIAL (10:39)
[2025-04-20 10:53] VITALS: BP 105/59; PULSE 75; RESP 22; TEMP 35.9; O2SAT 97
[2025-04-20 10:57] VITALS: BP 102/55; PULSE 71; RESP 20; O2SAT 99
--- NOTE | 2025-04-20 10:59 | ROE_ITS ---
Operative Note Operative Note PRE-OP DIAGNOSIS: Right Carpal Tunnel Syndrome POST-OP DIAGNOSIS: same PROCEDURE: Right Endoscopic Carpal Tunnel Release SURGEON: Rai Regalado ANESTHESIA TYPE: General:No Airway Refer to Anesthesia Record ESTIMATED BLOOD LOSS: 0 PATHOLOGY: none sent TOURNIQUET TIME: 4 COMPLICATIONS: None Patient was transported to: PACU Patient's condition: stable Indications: I have seen Fabiola in clinic for symptoms of carpal tunnel syndrome. The numbness, tingling, and pain limited function. Clinical exam findings with nerve conduction tests confirmed the diagnosis of carpal tunnel syndrome. Nonoperative measures such as bracing, time, activity modifications had been tried but disability and pain persisted. I discussed carpal tunnel release with the patient. I reviewed the risks of the procedure to include, but not limited to, bleeding, infection, pain, stiffness, incomplete release, damage to nerves or vessels, persistent numbness, recurrence. Despite these risks, the patient elected to proceed. Findings: There was tightened carpal tunnel. This was dilated and released successfully with the endoscopic with increased space within the tunnel. The antebrachial fascia was released proximally freeing the median nerve at the wrist. Procedure Description: Berkley was greeted in the preoperative holding area where the correct side was identified and marked. The consent was reviewed with the patient and signed. The history and physical was updated. All questions were answered. She was taken back to the operating room. The patient was placed into the supine position on the operating room table with the right arm on an arm board. A nonsterile tourniquet was placed high onto the arm. All bony prominences were well padded. Prophylactic antibiotics in the form of Cefazolin were administered. The right arm was then prepped with Chloraprep and draped in a standard fashion with stockinette and extremity drape. A timeout to confirm correct identity, side and site, procedure, allergies, anesthesia, and medical concerns was performed. The surgical site was marked in the volar wrist creases in line with the radial border of the fourth ray. This area was anesthetized with approximately 6cc of 1% Lidocaine. The limb was then exsanguinated with an Esmarch. The skin was incised with a 15 blade, approximately 1cm. The skin only was cut and the deeper tissue was dissected bluntly with a tenotomy scissor, avoiding passing nerve and venous structures. The fascia was penetrated and opened bluntly. A two-prong skin hook was placed under this proximal fascial edge. A series of hamate finders were used to identify and dilate the carpal tunnel. Synovial elevator was used to free synovial attachments to the underside of the transverse carpal ligament. My thumb was kept in the palm to jacey the distal extent of the carpal tunnel and correctly position the hand. The Microaire endoscope was inserted without difficulty and without resistance. Excellent visualization showed horizontally running fibers of the transverse carpal lig ament (TCL). The distal extent of the TCL was visualized and the end of the scope palpated with the thumb. The blade was elevated and withdrawn from distal to proximal. The TCL was split into two flaps. The endoscope was reinserted to confirm complete release and any remnant ligament was incised. The scope was withdrawn and the proximal aspect of the carpal tunnel was grossly inspected and appeared release with the median nerve visible. The antebrachial fascia at the level of the wrist was then freed from the overlying skin and then the underlying median nerve with blunt dissection. This was transected longitudinally for about 3cm proximal to the wrist incision. The wound was then irrigated with easy flow of irrigant distally and proximally. The incision was closed with a single 4-0 Nylon suture. The wound was dressed with Xeroform, Gauze, Kerlix and Andrey. The tourniquet was deflated with the initial dressing and held with some pressure. Blood flow returned easily to all digits with capillary refill less than 2 seconds. The patient tolerated the procedure well and was returned to the Same Day Surgery area in a stable condition suffering no known complication. Date of Procedure: 04/20/25
[2025-04-20 11:10] VITALS: BP 90/59; PULSE 63; RESP 20; O2SAT 99
--- NOTE | 2025-04-20 11:15 | W.ANESPOSTOP ---
Postoperative Evaluation Date, Time and Location Date Performed: 04/20/25 Time Performed: 11:15 Patient Location: Day Surgery Unit Vital Signs Most Recent Imported Vital Signs: Most Recent Vital Signs Temp Pulse Resp BP Pulse Ox 35.9 C L 63 20 90/59 L 99 04/20/25 10:53 04/20/25 11:10 04/20/25 11:10 04/20/25 11:10 04/20/25 11:10 Assessment Mental Status: Awake (Alert & Oriented to Patient Baseline) Airway and Respiratory Function: Patent airway with normal (patient baseline) respiratory exam Cardiovascular Function: Hemodynamically Stable Hydration Status: Adequately Hydrated Nausea & Vomiting: No Nausea or Vomiting Pain: Pt. Denies Any Pain Peripheral Nerve Block: Patient did not receive a nerve block
== END 2025-04-20 11:38 | disposition home or self-care (01) ==
LOC: SUR 09:00
PROVIDERS: PCP Nurse Practitioner Family; Visit Provider Student in an Organized Health Care Education/Training Program
PROC: 01N54ZZ Release Median Nerve, Percutaneous Endoscopic Approach (ICD-10-PCS; CPT 29848; principal; 2025-04-20 10:45)
DX: G56.01 Carpal tunnel syndrome, right upper limb (principal)
CPT/HCPCS: 29848; J0690; J1100; J2004; J2250; J2405; J2704